=== PATIENT | male | born 1945 | race Caucasian/White ===

== ENCOUNTER 2016-12-17 09:02 | Inpatient (IN) | payer MEDICARE, OTHER ==
[2016-12-17] MEDS ORDERED: NS 0.9% 1000 ML* 1,000 ML IV ONE (09:25)
[2016-12-17] MEDS ORDERED: Diltiazem IV* 5 MG/ML 5 ML VIAL (for loading dose/IV Push) (25 MG) IV SLOW PU ONE ×2 (09:26→10:27)
[2016-12-17] MEDS ORDERED: Diltiazem DRIP* 100 MG/100 ML ADDV.BAG IVPB ONE (09:26)
[2016-12-17 10:31] LABS: Add Diff/Slide Review? Slide Review Added; Comments Flag Yes; Hematocrit 48 % (42-52); Hemoglobin 15.4 g/dl (14.0-18.0); Mean Corpuscular HGB Conc 32 g/dl (31-36); Mean Corpuscular Hemoglobin 28 pg (27-31); Mean Corpuscular Volume 89 fL (80-94); Mean Platelet Volume 9 um3 (7.4-10.4); Red Blood Count 5.43 10^6/ul (4.0-5.4); Red Cell Distribution Width 14 % (10.5-15); White Blood Count 21.6 10^3/ul (3.5-10.8)
--- NOTE | 2016-12-17 10:40 | RAD ---
HISTORY: Tachycardia COMPARISONS: February 13, 2016 VIEWS:1: Single frontal portable view of the chest at 10:30 AM FINDINGS: LINES AND TUBES: None. CARDIOMEDIASTINAL SILHOUETTE: The cardiomediastinal silhouette is normal for portable technique. PLEURA: The costophrenic angles are sharp. No pleural abnormalities are noted. LUNG PARENCHYMA: There is hyperinflation. There is patchy confluent alveolar opacification of the left mid and lower lung field and right lower lung field ABDOMEN: The upper abdomen is clear. There is no subphrenic gas. BONES AND SOFT TISSUES: No bone or soft tissue abnormalities are noted. IMPRESSION: BILATERAL MULTIFOCAL CONSOLIDATION. RECOMMEND FOLLOW-UP UNTIL RESOLUTION TO EXCLUDE UNDERLYING PULMONARY PARENCHYMAL PATHOLOGY
[2016-12-17] MEDS ORDERED: cefTRIAXone(*) 1 GM in NS 0.9% 50 ML* 50 ML IVPB ONE (10:41)
[2016-12-17] MEDS ORDERED: Levofloxacin 750 MG IVPREMIX(* 750 MG/150 ML BAG IVPB ONE (10:41)
[2016-12-17 10:42] LABS: Albumin 3.6 g/dL (3.2-5.2); BUN/Creatinine Ratio 29.6 (8-20); C Reactive Protein 279.81 mg/L (< 5.00); Calcium 9.2 mg/dL (8.6-10.3); EGFR African American 140.7 (>60); EGFR Non-African American 109.4 (>60); Globulin 3.4 g/dL (2-4); Magnesium 1.8 mg/dL (1.9-2.7)
[2016-12-17 10:51] LABS: TSH (Thyroid Stimulating Horm) 2.57 mcIU/mL (0.34-5.60)
[2016-12-17 10:59] LABS: Troponin I 0.08 ng/mL (<0.04)
[2016-12-17] MEDS ORDERED: Magnesium Oxide TAB* 400 MG PO ONE (12:09)
[2016-12-17] MEDS ORDERED: NS 0.9% 1000 ML* 1,000 ML IV SCH (12:15)
--- NOTE | 2016-12-17 12:20 | ED ---
Meghna Gale Salem, scribed for Iggy Fontaine MD on 12/17/16 at 1024 . HPI Cardiac - HPI Summary HPI Summary: Patient is a 71 y/o male who presents to the ED with SOB since yesterday. His reports he had SOB all throughout the night. Pt has COPD and is often short of breath, but sx has worsened in the last few months. He was tachycardic last night, measuring at 160 bpm which then dropped back to 90 bpm and jose back up to 160 this morning. He reports this sx is similar to past episodes of tachycardia. Pt was experiencing pain in his right side last night. He also reports A Fib, but denies CHF. He takes ASA 81 mg and is on oxygen at night. - History of Current Complaint Chief Complaint: EDDysrhythmPalp Stated Complaint: SHORT OF BREATH, RAPID HEART Time Seen by Provider: 12/17/16 09:15 Hx Obtained From: Patient Onset/Duration: Started Days Ago Initial Severity: Moderate Current Severity: Moderate Pain Intensity: 0 Pain Scale Used: 0-10 Numeric Aggravating Factor(s): Nothing Alleviating Factor(s): Nothing Associated Signs and Symptoms: Positive: Shortness of Breath, Other: - Tachycardia. - Additional Pertinent History Primary Care Physician: [id number] - Allergy/Home Medications Allergies/Adverse Reactions: Allergies Allergy/AdvReac Type Severity Reaction Status Date / Time Penicillins Allergy Severe Swelling Verified 02/12/16 07:19 Roflumilast [From Dalires] Allergy Unknown Verified 02/12/16 07:19 Reaction Details PMH/Surg Hx/FS Hx/Imm Hx Endocrine/Hematology History: Denies: Hx Diabetes, Hx Sickle Cell Disease Cardiovascular History: Reports: Other Cardiovascular Problems/Disorders - NEW ONSET AFIB, SURGERY CANCELLED IN NOV. ON CARDIZIEM Denies: Hx Angina, Hx Congestive Heart Failure, Hx Coronary Artery Disease, Hx Hypercholesterolemia, Hx Hypertension, Hx Myocardial Infarction, Hx Pacemaker /ICD, Hx Valvular Heart Disease Respiratory History: Reports: Hx Chronic Obstructive Pulmonary Disease (COPD) Denies: Hx Asthma Comment Only: Other Respiratory Problems/Disorders - COPD GI History: Reports: Other GI Disorders - CURRENT CHOLELITHIASIS History: Denies: Hx Dialysis, Hx Renal Disease, Other Problems/Disorders Musculoskeletal History: Reports: Other Musculoskeletal History - PINCH NERVE IN NECK Sensory History: Reports: Hx Cataracts - REMOVED BILATERAL EYES, Hx Contacts or Glasses - READING GLASSES Denies: Hx Glaucoma, Hx Hearing Aid Opthamlomology History: Reports: Hx Cataracts - REMOVED BILATERAL EYES, Hx Contacts or Glasses - READING GLASSES Denies: Hx Glaucoma Neurological History: Denies: Hx Headaches, Other Neuro Impairments/Disorders Psychiatric History: Denies: Hx Panic Disorder - Surgical History Surgery Procedure, Year, and Place: 2009 LEFT CATARACT [facility]. 2011 RIGHT CATARACT [facility]. 2010 TUMOR EXC FACE [facility] Hx Anesthesia Reactions: No Infectious Disease History: Denies: Traveled Outside the [place] in Last 30 Days - Family History Known Family History: Positive: Cardiac Disease - Mother. , Diabetes - Mother. - Social History Alcohol Use: None Substance Use Type: Reports: None Smoking Status (MU): Former Smoker Type: Cigarettes Amount Used/How Often: 2 PPD Length of Time of Smoking/Using Tobacco: 50+ YEARS Have You Smoked in the Last Year: No Review of Systems Positive: Palpitations, Other - Tachycardia measured at 160bpm this morning. Positive: Shortness Of Breath All Other Systems Reviewed And Are Negative: Yes Physical Exam Triage Information Reviewed: Yes Vital Signs On Initial Exam: Initial Vitals Temp Pulse Resp BP Pulse Ox 100.6 F 166 22 145/93 96 12/17/16 09:11 12/17/16 09:11 12/17/16 09:11 12/17/16 09:11 12/17/16 09:11 Vital Signs Reviewed: Yes Appearance: Positive: Well-Appearing, No Pain Distress Skin: Positive: Warm, Skin Color Reflects Adequate Perfusion, Dry Head/Face: Positive: Normal Head/Face Inspection Eyes: Positive: EOMI, MIGUEL ÁNGEL ENT: Positive: Normal ENT inspection Neck: Positive: Supple, Nontender Respiratory/Lung Sounds: Positive: Wheezes, Other - Mildly Short of Breath. Decreased air movement bilaterally Cardiovascular: Positive: Tachycardia Abdomen Description: Positive: Soft Musculoskeletal: Positive: Normal, Strength/ROM Intact. Negative: Edema Left, Edema Right Neurological: Positive: Sensory/Motor Intact, Alert, Oriented to Person Place, Time Psychiatric: Positive: Affect/Mood Appropriate Diagnostics - Vital Signs Vital Signs Temp Pulse Resp BP Pulse Ox 12/17/16 09:17 165 93 12/17/16 09:11 100.6 F 166 22 145/93 96 - Laboratory Lab Results: Lab Results 12/17/16 12/17/16 12/17/16 Range/Units 09:30 09:30 09:30 WBC 21.6 H (3.5-10.8) 10^3/ul RBC 5.43 H (4.0-5.4) 10^6/ul Hgb 15.4 (14.0-18.0) g/dl Hct 48 (42-52) % MCV 89 (80-94) fL MCH 28 (27-31) pg MCHC 32 (31-36) g/dl RDW 14 (10.5-15) % Plt Count 246 (150-450) 10^3/ul MPV 9 (7.4-10.4) um3 Neut % (Auto) 94.3 H (38-83) % Lymph % (Auto) 2.1 L (25-47) % Rose[place] % (Auto) 3.4 (1-9) % Eos % (Auto) 0 (0-6) % Baso % (Auto) 0.2 (0-2) % Absolute Neuts (auto) 20.3 H (1.5-7.7) 10^3/ul Absolute Lymphs (auto) 0.4 L (1.0-4.8) 10^3/ul Absolute Monos (auto) 0.7 (0-0.8) 10^3/ul Absolute Eos (auto) 0 (0-0.6) 10^3/ul Absolute Basos (auto) 0 (0-0.2) 10^3/ul Absolute Nucleated RBC 0.01 10^3/ul Nucleated RBC % 0.1 INR (Anticoag Therapy) 1.23 H (0.89-1.11) APTT 34.6 (26.0-36.3) seconds Sodium (133-145) mmol/L Potassium (3.5-5.0) mmol/L Chloride (101-111) mmol/L Carbon Dioxide (22-32) mmol/L Anion Gap (2-11) mmol/L BUN (6-24) mg/dL Creatinine (0.67-1.17) mg/dL Est GFR ( Amer) (>60) Est GFR (Non-Af Amer) (>60) BUN/Creatinine Ratio (8-20) Glucose (70-100) mg/dL Calcium (8.6-10.3) mg/dL Magnesium (1.9-2.7) mg/dL Total Bilirubin (0.2-1.0) mg/dL AST (13-39) U/L ALT (7-52) U/L Alkaline Phosphatase (34-104) U/L Total Creatine Kinase (10-223) U/L CK-MB (CK-2) (0.6-6.3) ng/mL Troponin I (<0.04) ng/mL C-Reactive Protein (< 5.00) mg/L B-Natriuretic Peptide 275 H ( - 100) pg/mL Total Protein (6.4-8.9) g/dL Albumin (3.2-5.2) g/dL Globulin (2-4) g/dL Albumin/Globulin Ratio (1-3) Lipase (11.0-82.0) U/L TSH (0.34-5.60) mcIU/mL 12/17/16 Range/Units 09:30 WBC (3.5-10.8) 10^3/ul RBC (4.0-5.4) 10^6/ul Hgb (14.0-18.0) g/dl Hct (42-52) % MCV (80-94) fL MCH (27-31) pg MCHC (31-36) g/dl RDW (10.5-15) % Plt Count (150-450) 10^3/ul MPV (7.4-10.4) um3 Neut % (Auto) (38-83) % Lymph % (Auto) (25-47) % Rose[place] % (Auto) (1-9) % Eos % (Auto) (0-6) % Baso % (Auto) (0-2) % Absolute Neuts (auto) (1.5-7.7) 10^3/ul Absolute Lymphs (auto) (1.0-4.8) 10^3/ul Absolute Monos (auto) (0-0.8) 10^3/ul Absolute Eos (auto) (0-0.6) 10^3/ul Absolute Basos (auto) (0-0.2) 10^3/ul Absolute Nucleated RBC 10^3/ul Nucleated RBC % INR (Anticoag Therapy) (0.89-1.11) APTT (26.0-36.3) seconds Sodium 134 (133-145) mmol/L Potassium 4.0 (3.5-5.0) mmol/L Chloride 99 L (101-111) mmol/L Carbon Dioxide 30 (22-32) mmol/L Anion Gap 5 (2-11) mmol/L BUN 21 (6-24) mg/dL Creatinine 0.71 (0.67-1.17) mg/dL Est GFR ( Amer) 140.7 (>60) Est GFR (Non-Af Amer) 109.4 (>60) BUN/Creatinine Ratio 29.6 H (8-20) Glucose 186 H (70-100) mg/dL Calcium 9.2 (8.6-10.3) mg/dL Magnesium 1.8 L (1.9-2.7) mg/dL Total Bilirubin 1.00 (0.2-1.0) mg/dL AST 24 (13-39) U/L ALT 48 (7-52) U/L Alkaline Phosphatase 91 (34-104) U/L Total Creatine Kinase 23 (10-223) U/L CK-MB (CK-2) 15.3 H (0.6-6.3) ng/mL Troponin I 0.08 H* (<0.04) ng/mL C-Reactive Protein 279.81 H (< 5.00) mg/L B-Natriuretic Peptide ( - 100) pg/mL Total Protein 7.0 (6.4-8.9) g/dL Albumin 3.6 (3.2-5.2) g/dL Globulin 3.4 (2-4) g/dL Albumin/Globulin Ratio 1.1 (1-3) Lipase 18 (11.0-82.0) U/L TSH 2.57 (0.34-5.60) mcIU/mL Result Diagrams: 12/17/16 09:30 12/17/16 09:30 Lab Statement: Any lab studies that have been ordered have been reviewed, and results considered in the medical decision making process. - Radiology CXR Radiology Interpretation Completed By: Radiologist - IMPRESSION: BILATERAL MULTIFOCAL CONSOLIDATION. RECOMMEND FOLLOW-UP UNTIL RESOLUTION TO EXCLUDE UNDERLYING PULMONARY PARENCHYMAL PATHOLOGY Re-Evaluation - Re-Evaluation First Eval Re-Evaluation Time: 10:43 Comment: Discussed CXR and plans for admission. Pt is agreeable. Disposition - Course Assessment/Plan: ADMIT HOSPITALIST STABLE. - Diagnoses Provider Diagnoses: Rapid atrial fibrillation, Pneumonia - Physician Notifications Discussed Care Of Patient With: Dr. Butler (Hospitalist). Will admit pt. Discharge - Discharge Plan Condition: Stable Disposition: ADMITTED TO [facility] Referrals: Min Dietz MD [Primary Care Provider] - The documentation as recorded by the Meghna shay Salem accurately reflects the service I personally performed and the decisions made by me, Iggy Fontaine MD.
--- NOTE | 2016-12-17 12:38 | RAD ---
HISTORY: Pneumonia, COPD COMPARISONS: Chest x-ray dated December 17, 2016, CT dated November 19, 2013 TECHNIQUE: Multiple contiguous axial CT scans of the chest were obtained without intravenous contrast. Coronal and sagittal multiplanar reformations are also submitted for review. FINDINGS: NECK AND THYROID: The lower neck and thyroid are unremarkable. CHEST WALL: There is no lower cervical, axillary, or supraclavicular lymphadenopathy by size criteria. HEART AND PERICARDIUM: The heart is unremarkable. AORTA AND PULMONARY VASCULATURE: The aorta and pulmonary vasculature are normal. MEDIASTINUM: There is no mediastinal lymphadenopathy by size criteria. JS: Evaluation of the js is limited by the lack of intravenous contrast. There is no obvious hilar lymphadenopathy by size criteria. AIRWAY AND ESOPHAGUS: The airway is unremarkable, without endobronchial filling defect. The esophagus is grossly normal. LUNG PARENCHYMA: There is multifocal ground less opacification of the left upper lobe left lower lobe and right lower lobe. There is consolidation of the basal segments of the right lower lobe. There is associated scattered centrilobular nodularity PLEURA: There are trace bilateral pleural effusions UPPER ABDOMEN: The upper abdomen is unremarkable. BONES AND SOFT TISSUES: Mild degenerative changes are noted OTHER: None. IMPRESSION: THERE IS MULTIFOCAL AIRSPACE DISEASE AND AIRWAY CENTERED NODULARITY SUGGESTIVE OF INFECTIOUS VERSUS NONINFECTIOUS/INFLAMMATORY CHANGE.
[2016-12-17] MEDS: predniSONE TAB* 20 MG PO SCH (14:04)
[2016-12-17] MEDS: Heparin VIAL(*) 5000 UNITS/ML VIAL (FIVE THOUSAND) SUBCUT SCH ×2 (14:04→21:24)
--- NOTE | 2016-12-17 16:08 | HP ---
HOSPITAL MEDICINE HISTORY AND PHYSICAL: DATE OF ADMISSION: 12/17/16 PRIMARY CARE PHYSICIAN: Min Dietz MD. MINK SLICER: Francisco J Rebolledo MD. CORNER BEAD OPERATOR: Wendi Berg MD. ATTENDING PHYSICIAN: DO Jolanta Tong(dictation provided by Doris Valentin NP) . CHIEF COMPLAINT: Cough and shortness of breath with rapid heart rate. HISTORY OF PRESENT ILLNESS: Mr. Espino is a 71-year-old male with a past medical history of paroxysmal atrial fibrillation and COPD, who presents today to the hospital with concern for worsening cough, shortness of breath, and rapid heart rate. Mr. Espino states that he notes that his heart rate is elevated when he checks his oxygen saturation via his home monitor. He states that he checks it several times per week and is noted to have a rapid heart rate several times per week. He notes his O2 saturation runs 88% to 90%. He wears 3 L nasal cannula at home and with activity. The patient went to see Dr. Rebolledo's physician rn first assistant approximately 2 weeks ago, at which time his Cardizem CD was increased from 120 mg to 180 mg. He also went to see Dr. Berg this Monday for a check after completing a course of Levaquin out of concern for pneumonia due to increased shortness of breath and cough. The patient says that he was feeling somewhat better although he never feels all that well. No additional medications were prescribed at that time. The patient states that last night he felt short of breath and therefore checked his pulse oximeter, which showed rapid heart rate. This morning he woke up covered in sweat and again checked the monitor, which showed persistently high heart rate and therefore he came into the emergency room for evaluation. He does not know if he had a fever. He did not check his temperature but again he was drenched in sweat. He notes no change to the character of his sputum. He says other than these complaints, he has been doing well. He has been eating and drinking okay and has normal formed bowel movements. He denies any issue with urination. In the emergency room, Mr. Espino is confirmed to be in atrial fibrillation with heart rate as high as 160. He now has been started on a Cardizem drip and his heart rate is running 120. He states that he is feeling a little bit better already. He was found to have a white blood cell count of 21.6, and he has a chest x-ray, which shows bilateral consolidations concerning for pneumonia. The patient finally is noted to have a mild elevation in his troponin to 0.08. Mr. Espino's presentation was concerned for rapid atrial fibrillation in the setting of pneumonia with mild elevation of troponin, Hospital Medicine was called regarding admission. PAST MEDICAL HISTORY: 1. Paroxysmal atrial fibrillation. 2. COPD on 3 L nasal cannula at night and with activity. 3. History of cholecystectomy in January 2016. 4. Cataract extractions. 5. 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 MEDICATIONS: 1. Diltiazem 180 mg p.o. daily. 2. Acetylcysteine 600 mg p.o. daily. 3. Albuterol via inhaler p.r.n. 4. Albuterol via nebulizer p.r.n. 5. Symbicort 160-4.5 two puffs inhaled b.i.d. 6. Tiotropium 18 mcg inhaled q.a.m. 7. Diltiazem 180 mg p.o. daily. 8. Prednisone 5 mg p.o. daily. 9. Aspirin 81 mg p.o. daily. ALLERGIES: PENICILLIN and ROFLUMILAST. FAMILY HISTORY: The patient reports that mother had severe heart disease with coronary artery bypass graft. She also had breast cancer. Father had reported history of AFib and COPD. SOCIAL HISTORY: The patient has over 50-year pack history of smoking. He quit approximately 3 years ago. He denies any alcohol or drug use, lives with his who is his healthcare proxy. REVIEW OF SYSTEMS: A 14-point review of systems was completed with Mr. Espino and all those not mentioned above were negative. PHYSICAL EXAMINATION GENERAL: Mr. Espino is sitting up in the bed. He is in no acute distress. He is calm and cooperative with my examination. VITAL SIGNS: Temperature 100.6. Heart rate 157, it is currently 120 at time of my examination. Respiratory rate 20, O2 saturation 95% on 4 L nasal cannula , blood pressure 145/93. LUNGS: Diminished bilaterally with no rhonchi or wheezing noted. HEART: S1, S2. No murmur, rub, gallop, and irregular. ABDOMEN: Soft, nontender. Bowel sounds are positive x4. EXTREMITIES: No cyanosis or edema. SKIN: Intact. NEUROLOGIC: He is alert and oriented x3. He moves all extremities equally. There is no facial asymmetry or focal weakness. Extraocular movements are intact. DIAGNOSTIC STUDIES AND LAB DATA: Sodium 134, potassium 4.0, chloride 99, serum bicarbonate 30, BUN 21, creatinine 0.71, glucose 186, magnesium 1.8. Troponin 0.08. CRP 279.81. WBC 21.6, hemoglobin 15.4, hematocrit 48, platelet count 246. INR 1.23. Chest x-ray shows bilateral multifocal consolidation. EKG shows what looks like supraventricular tachycardia up to 160. IMPRESSION: Mr. Espino is a 71-year-old male with a past medical history of known paroxysmal atrial fibrillation, chronic obstructive pulmonary disease on home O2, who presents today to the emergency room with rapid heart rate, shortness of breath, and cough, found to have rapid atrial fibrillation with suspected pneumonia. Our plans are for inpatient admission to the Intensive Care Unit. I expect the length of stay to be greater than 2 days for the followin. Rapid atrial fibrillation: The patient recently had his diltiazem increased from 120 to 180 mg by his sand plant attendant. He has had some improvement in his rate control with the Cardizem drip thus far. Plan to continue to titrate the Cardizem drip up and then switch over to oral Cardizem. The patient has CHADS-VASc 2 score of 1 and therefore will continue on aspirin only. If the patient has any further difficulties with control of his rapid atrial fibrillation, we will consider consultation with Cardiology. 2. Pneumonia: I am very concerned with the patient's extensive pack year history of smoking that perhaps he has underlying parenchymal pathology beyond a pneumonia. I also note that the patient was treated with antibiotics by Dr. Berg very recently and despite this he presents today with significant leukocytosis and parenchymal consolidations on x-ray, therefore I think a CT chest is warranted for further evaluation of the lung parenchyma. The patient will have ceftriaxone and azithromycin for antibiotic coverage. He will have oxygen available. He will have DuoNeb nebulizers. I will confirm the blood cultures have been sent and add on lactic acid. 3. Elevated troponin. I suspect this slight elevation in his troponin is due to his rapid atrial fibrillation, but we will check those q.3 hours x2. The patient will be on telemetry monitoring while in the Intensive Care Unit. 4. Hypomagnesemia. Plan to replete with magnesium orally and recheck in the morning. 5. Hyperglycemia. The patient's blood glucose was 186 on arrival. This could be secondary to infection, but we will check hemoglobin A1c to rule out diabetes. 6. DVT prophylaxis with heparin subcu and SCDs. 7. Disposition: To Intensive Care Unit. 8. Code status: DNR. His MOST form has been completed with the family at bedside . TIME SPENT: Approximately 75 minutes was spent on admission of this patient, more than half time spent with patient at the bedside reviewing the events leading up to this hospitalization, performing the physical examination, and reviewing my plan of care. DORIS VALENTIN NP CC: Dr. Dietz; Dr. Rebolledo; Dr. Berg* [id number]/CPS #: [id number]
[2016-12-17] MEDS ORDERED: Diltiazem TAB* 60 MG PO SCH (20:00)
[2016-12-17] MEDS ORDERED: Albuterol HFA INHALER* 8 gm MDI INH PRN (20:01)
[2016-12-17] MEDS: Diltiazem TAB* 60 MG PO SCH (21:24)
[2016-12-17] MEDS: Mometasone/Formoter 200/5 MDI INH SCH (22:04)
[2016-12-18] MEDS: Diltiazem TAB* 60 MG PO SCH ×5 (02:58→21:41)
[2016-12-18 05:41] LABS: Hematocrit 40 % (42-52); Hemoglobin 12.9 g/dl (14.0-18.0); Mean Corpuscular HGB Conc 32 g/dl (31-36); Mean Corpuscular Hemoglobin 29 pg (27-31); Mean Corpuscular Volume 90 fL (80-94); Mean Platelet Volume 8 um3 (7.4-10.4); Red Blood Count 4.45 10^6/ul (4.0-5.4); Red Cell Distribution Width 14 % (10.5-15); White Blood Count 15.3 10^3/ul (3.5-10.8)
[2016-12-18 05:53] LABS: Calcium 8.7 mg/dL (8.6-10.3); EGFR African American 167.6 (>60); EGFR Non-African American 130.3 (>60); Magnesium 1.9 mg/dL (1.9-2.7); Potassium 4.4 mmol/L (3.5-5.0)
[2016-12-18] MEDS: Heparin VIAL(*) 5000 UNITS/ML VIAL (FIVE THOUSAND) SUBCUT SCH ×3 (06:04→21:41)
[2016-12-18] MEDS: Albuterol HFA INHALER* 8 gm MDI INH SCH (08:39)
[2016-12-18] MEDS: Mometasone/Formoter 200/5 MDI INH SCH ×2 (08:42→21:52)
[2016-12-18] MEDS ORDERED: Spiriva Inhaler DEVICE* 1 EACH DEVICE INH ONE (09:00)
[2016-12-18] MEDS ORDERED: SODIUM BICARBONATE IV ONE ×2 (09:25)
[2016-12-18] MEDS ORDERED: LACTATED RINGERS IV ONE ×2 (09:25)
[2016-12-18] MEDS: Tiotropium CAP.INH* CAP.INH/18 MCG (USE ORDER SET !) INH SCH (10:04)
[2016-12-18] MEDS: cefTRIAXone VIAL(*) 1,000 MG in NS 0.9% 50 ML* 50 ML IVPB SCH (11:37)
[2016-12-18] MEDS: predniSONE TAB* 20 MG PO SCH (11:40)
[2016-12-18] MEDS: Aspirin EC Low Dose* 81 MG TAB.EC PO SCH (11:40)
[2016-12-18] MEDS ORDERED: Sodium Bicarbonate 8.4% IV* 100 MEQ in D5W 1000 ML BAG* 1,000 ML IVPB ONE (12:00)
[2016-12-18] MEDS ORDERED: SODIUM BICARBONATE IVPB ONE (12:00)
[2016-12-18] MEDS ORDERED: LACTATED RINGERS IVPB ONE (12:00)
--- NOTE | 2016-12-18 13:11 | PN ---
Subjective Date of Service: 12/18/16 Interval History: Pt feels occasionally short of breath - but never is outright distress intermittent tachycardia, during which times patient feels poorly. diltiazem continuing IVF ordered for periods of hypOtension. no anticoagulation as per RAMONA's score...on ASA. . Family History: Unchanged from Admission Social History: Unchanged from Admission Past Medical History: Unchanged from Admission Objective Active Medications: . Albuterol (Ventolin Hfa Inhaler*) 1 puff INH Q4H PRN PRN Reason: SOB/WHEEZING Albuterol (Ventolin Hfa Inhaler*) 2 puff INH QAM [facility] Last Admin: 12/18/16 08:39 Dose: 2 puff Albuterol/Ipratropium (Duoneb Neb.Veronika*) 1 neb INH Q4H PRN PRN Reason: SOB/WHEEZING Aspirin (Aspirin Ec Low Dose*) 81 mg PO DAILY [facility] Last Admin: 12/18/16 11:40 Dose: 81 mg Diltiazem HCl (Cardizem Tab*) 60 mg PO Q6H [facility] Last Admin: 12/18/16 12:40 Dose: 60 mg Heparin Sodium (Porcine) (Heparin Vial(*)) 5,000 units SUBCUT Q8HR [facility] Last Admin: 12/18/16 06:04 Dose: 5,000 units Ceftriaxone Sodium 1,000 mg/ (Sodium Chloride) 50 mls @ 200 mls/hr IVPB Q24H [facility] Last Admin: 12/18/16 11:37 Dose: 200 mls/hr Azithromycin 500 mg/ Sodium (Chloride) 250 mls @ 250 mls/hr IVPB Q24H [facility] Sodium Bicarbonate 100 meq/ (Dextrose) 1,100 mls @ 100 mls/hr IVPB ONCE ONE PRN Reason: As Directed Stop: 12/18/16 22:59 Last Admin: 12/18/16 12:40 Dose: 100 mls/hr Mometasone Furoate/Formoterol Fumar (Dulera 200/5 Mdi*) 2 puff INH BID [facility] PRN Reason: Protocol Last Admin: 12/18/16 08:42 Dose: 2 puff Prednisone (Deltasone Tab*) 60 mg PO DAILY [facility] Last Admin: 12/18/16 11:40 Dose: 60 mg Tiotropium [place] (Spiriva Cap.Inh*) 1 cap INH QAM [facility] Last Admin: 12/18/16 10:04 Dose: 1 puff . Vital Signs 12/17/16 12/17/16 12/17/16 13:20 13:27 14:00 Temperature 98.5 F 100.8 F Pulse Rate 98 105 Respiratory 20 16 Rate Blood Pressure 140/88 (mmHg) O2 Sat by Pulse 94 Oximetry 12/17/16 12/17/16 12/17/16 14:13 14:15 14:30 Temperature Pulse Rate 90 86 91 Respiratory 20 20 19 Rate Blood Pressure 106/67 97/58 103/73 (mmHg) O2 Sat by Pulse 93 94 94 Oximetry Oxygen Devices in Use Now: Nasal Cannula Appearance: elderly and frail Ears/Nose/Mouth/Throat: NL Teeth, Lips, Gums Neck: NL Appearance and Movements; NL JVP Respiratory: Symmetrical Chest Expansion and Respiratory Effort Cardiovascular: NL Sounds; No Murmurs; No JVD, - - irr irr and tachycardic at times (AF) ; other times RRR. Abdominal: NL Sounds; No Tenderness; No Distention Lymphatic: No Cervical Adenopathy Extremities: No Edema Skin: No Rash or Ulcers Neurological: Alert and Oriented x 3 Lines/Tubes/Other Access: Clean, Dry and Intact Peripheral IV Nutrition: Taking PO's Result Diagrams: 12/18/16 05:20 12/18/16 05:20 Additional Lab and Data: .. Microbiology and Other Data: Microbiology 12/17/16 12:48 Aerobic Blood Culture - Preliminary Blood Venous No Growth Day 1 Anaerobic Blood Culture - Preliminary No Growth Day 1 12/17/16 18:30 Nasal Screen MRSA (PCR)(JAY) - Final Nasal Mrsa Negative 12/17/16 12:50 Influenza Types A,B Antigen (JAY) - Final Nasopharyngeal Specimen received for Influenza A/B Molecular testing Assess/Plan/Problems-Billing . Assessment: 71 yo man with paroxysmal, rapid AF in hte setting of PNA / CT Chest showing diffuse airspace disease/consolidations. Currently in NSR - but occasionally goes into AF/150 range. Plan to increase BB/CCB to control AF; watch lower HR in NSR at other times ( watch for tachy-kris) Current Medications: - Albuterol 1 puff INH Q4H PRN SOB/WHEEZING - Albuterol (Ventolin Hfa Inhaler) 2 puff INH QAM - Albuterol/Ipratropium (Duoneb Neb.Veronika*) 1 neb INH Q4H PRN SOB/WHEEZING - Aspirin 81 mg PO DAILY - Diltiazem HCl (Cardizem Tab) 60 mg PO Q6H - Heparin 5,000 units SUBCUT Q8HR - Sodium Bicarbonate 100 meq once - Ceftriaxone Sodium 1,000 mg Q24H - Azithromycin 500 mg IVPB Q24H - Mometasone Furoate/Formoterol Fumar (Dulera 200/5 Mdi) 2 puff INH BID - Prednisone 60 mg PO DAILY - Tiotropium [place] (Spiriva) 1 cap INH QAM . - Patient Problems (1) Afib Current Visit: No Status: Acute Priority: High Code(s): I48.91 - UNSPECIFIED ATRIAL FIBRILLATION Comment: - intermittent Rashad - will ensure adequate hydration and acid/base status - increase ccb dosing - diltiazem to 240 mg daily in 4 doses - add BB - metoprolol 25 mg PO BID --> B1-selective BB will not affect COPD (2) Pneumonia Current Visit: Yes Status: Acute Code(s): J18.9 - PNEUMONIA, UNSPECIFIED ORGANISM SNOMED Code(s): 393255913 Comment: - CTX/LUCILLE - control COPD as below - Nebs - Supplemental Oxygen (3) COPD (chronic obstructive pulmonary disease) Current Visit: No Status: Acute Priority: Medium Code(s): J44.9 - CHRONIC OBSTRUCTIVE PULMONARY DISEASE, UNSPECIFIED SNOMED Code(s): 99864566 Comment: - The patient is diminished throughout. - Albuterol 1 puff INH Q4H PRN SOB/WHEEZING - Albuterol (Ventolin Hfa Inhaler) 2 puff INH QAM - Albuterol/Ipratropium (Duoneb Neb.Veronika*) 1 neb INH Q4H PRN SOB/WHEEZING - Ceftriaxone Sodium 1,000 mg Q24H - Azithromycin 500 mg IVPB Q24H - Mometasone Furoate/Formoterol Fumar (Dulera 200/5 Mdi) 2 puff INH BID - Prednisone 60 mg PO DAILY - Tiotropium [place] (Spiriva) 1 cap INH QAM (4) DVT prophylaxis Current Visit: No Status: Acute Priority: Medium Code(s): RNA1489 - Comment: [facility] (5) Full code status Current Visit: No Status: Acute Code(s): Z78.9 - OTHER SPECIFIED HEALTH STATUS
[2016-12-18] MEDS ORDERED: Metoprolol Tartrate TAB* 25 MG PO ONE (13:18)
[2016-12-18] MEDS: Azithromycin IV(*) 500 MG in NS 0.9% 250 ML* 250 ML IVPB SCH (13:59)
[2016-12-19] MEDS: Diltiazem TAB* 60 MG PO SCH ×4 (02:24→21:33)
[2016-12-19] MEDS: Heparin VIAL(*) 5000 UNITS/ML VIAL (FIVE THOUSAND) SUBCUT SCH ×3 (05:17→21:33)
[2016-12-19] MEDS: Albuterol/Ipratropium NEB.SOL* Albuterol 2.5 MG/Ipratropium 0.5 MG 3 ML INH PRN ×2 (05:40→14:51)
[2016-12-19] MEDS: Albuterol HFA INHALER* 8 gm MDI INH SCH (09:58)
[2016-12-19] MEDS: Tiotropium CAP.INH* CAP.INH/18 MCG (USE ORDER SET !) INH SCH (09:59)
[2016-12-19] MEDS: Mometasone/Formoter 200/5 MDI INH SCH ×2 (09:59→23:44)
[2016-12-19] MEDS: Aspirin EC Low Dose* 81 MG TAB.EC PO SCH (10:06)
[2016-12-19] MEDS: predniSONE TAB* 20 MG PO SCH (10:06)
[2016-12-19] MEDS: Metoprolol Tartrate TAB* 25 MG PO SCH ×2 (10:06→21:33)
[2016-12-19] MEDS: cefTRIAXone VIAL(*) 1,000 MG in NS 0.9% 50 ML* 50 ML IVPB SCH (11:17)
--- NOTE | 2016-12-19 11:30 | PN ---
Subjective Date of Service: 12/19/16 Interval History: Feeling better today. +cough productive of phlegm. Has not been OOB walking. No N/V, ate breakfast. No SOB, +wheezing sensation Family History: Unchanged from Admission Social History: Unchanged from Admission Past Medical History: Unchanged from Admission Objective Active Medications: Albuterol (Ventolin Hfa Inhaler*) 1 puff INH Q4H PRN PRN Reason: SOB/WHEEZING Albuterol (Ventolin Hfa Inhaler*) 2 puff INH QAM [facility] Last Admin: 12/19/16 09:58 Dose: 2 puff Albuterol/Ipratropium (Duoneb Neb.Veronika*) 1 neb INH Q4H PRN PRN Reason: SOB/WHEEZING Last Admin: 12/19/16 05:40 Dose: 1 neb Aspirin (Aspirin Ec Low Dose*) 81 mg PO DAILY [facility] Last Admin: 12/19/16 10:06 Dose: 81 mg Diltiazem HCl (Cardizem Tab*) 60 mg PO Q6H [facility] Last Admin: 12/19/16 10:06 Dose: 60 mg Heparin Sodium (Porcine) (Heparin Vial(*)) 5,000 units SUBCUT Q8HR [facility] Last Admin: 12/19/16 05:17 Dose: 5,000 units Ceftriaxone Sodium 1,000 mg/ (Sodium Chloride) 50 mls @ 200 mls/hr IVPB Q24H [facility] Last Admin: 12/19/16 11:17 Dose: 200 mls/hr Azithromycin 500 mg/ Sodium (Chloride) 250 mls @ 250 mls/hr IVPB Q24H [facility] Last Admin: 12/18/16 13:59 Dose: 250 mls/hr Metoprolol Tartrate (Lopressor Tab*) 25 mg PO BID [facility] Last Admin: 12/19/16 10:06 Dose: 25 mg Mometasone Furoate/Formoterol Fumar (Dulera 200/5 Mdi*) 2 puff INH BID [facility] PRN Reason: Protocol Last Admin: 12/19/16 09:59 Dose: 2 puff Prednisone (Deltasone Tab*) 60 mg PO DAILY [facility] Last Admin: 12/19/16 10:06 Dose: 60 mg Tiotropium [place] (Spiriva Cap.Inh*) 1 cap INH QAM [facility] Last Admin: 12/19/16 09:59 Dose: 1 puff Vital Signs 12/18/16 12/18/16 12/18/16 13:53 16:20 19:30 Temperature 97.9 F 98.2 F Pulse Rate 69 64 68 Respiratory 22 18 Rate Blood Pressure 103/67 97/67 107/65 (mmHg) O2 Sat by Pulse 94 95 Oximetry 12/18/16 12/18/16 12/19/16 20:00 23:41 02:27 Temperature 98.2 F Pulse Rate 73 Respiratory 16 16 Rate Blood Pressure 102/61 106/53 (mmHg) O2 Sat by Pulse 96 Oximetry 12/19/16 12/19/16 12/19/16 04:25 05:40 07:52 Temperature 98.3 F 97.9 F Pulse Rate 67 70 74 Respiratory 16 15 16 Rate Blood Pressure 98/61 106/60 (mmHg) O2 Sat by Pulse 96 95 97 Oximetry 12/19/16 10:06 Temperature Pulse Rate 92 Respiratory 18 Rate Blood Pressure (mmHg) O2 Sat by Pulse 92 Oximetry Oxygen Devices in Use Now: Nasal Cannula - 3L at rest Appearance: NAD Eyes: No Scleral Icterus, PERRLA Ears/Nose/Mouth/Throat: Clear Oropharnyx, Mucous Membranes Moist Neck: NL Appearance and Movements; NL JVP, Trachea Midline Respiratory: Symmetrical Chest Expansion and Respiratory Effort, - - diffuse expiratory wheeze Cardiovascular: - - IRIR Abdominal: NL Sounds; No Tenderness; No Distention, No Hepatosplenomegaly Lymphatic: No Cervical Adenopathy Extremities: No Edema Neurological: Alert and Oriented x 3 Result Diagrams: 12/18/16 05:20 12/18/16 05:20 Additional Lab and Data: .. Microbiology and Other Data: Microbiology 12/17/16 12:48 Aerobic Blood Culture - Preliminary Blood Venous No Growth Day 1 Anaerobic Blood Culture - Preliminary No Growth Day 1 12/17/16 18:30 Nasal Screen MRSA (PCR)(JAY) - Final Nasal Mrsa Negative 12/17/16 12:50 Influenza Types A,B Antigen (JAY) - Final Nasopharyngeal Specimen received for Influenza A/B Molecular testing Assess/Plan/Problems-Billing . Assessment: 71 yo man p/w afib with RVR in setting of multifocal PNA - Patient Problems (1) Pneumonia Comment: c/w CTX/Azithromycin Nebs Supplemental Oxygen - at home uses 3L at night and when ambulating (2) Afib Comment: cardizem increased to 240 mg daily in 4 doses added metoprolol 25 mg PO BID (3) COPD (chronic obstructive pulmonary disease) Comment: Albuterol 1 puff INH Q4H PRN SOB/WHEEZING Albuterol (Ventolin Hfa Inhaler) 2 puff INH QAM Albuterol/Ipratropium (Duoneb Neb.Veronika*) 1 neb INH Q4H PRN SOB/WHEEZING Dulera 200/5 Mdi 2 puff INH BID - Prednisone 60 mg PO DAILY Tiotropium [place] (Spiriva) 1 cap INH QAM (4) DVT prophylaxis Comment: [facility]
[2016-12-19] MEDS: Azithromycin IV(*) 500 MG in NS 0.9% 250 ML* 250 ML IVPB SCH (12:59)
[2016-12-19 13:09] LABS: Urine Bilirubin Negative (Negative); Urine Glucose 1+(50 mg/dL) (Negative); Urine Nitrite Negative (Negative)
[2016-12-20] MEDS: Diltiazem TAB* 60 MG PO SCH ×2 (02:17→08:33)
[2016-12-20 04:57] LABS: Hematocrit 38 % (42-52); Hemoglobin 12.4 g/dl (14.0-18.0); Mean Corpuscular HGB Conc 33 g/dl (31-36); Mean Corpuscular Hemoglobin 29 pg (27-31); Mean Corpuscular Volume 89 fL (80-94); Mean Platelet Volume 8 um3 (7.4-10.4); Red Blood Count 4.29 10^6/ul (4.0-5.4); Red Cell Distribution Width 14 % (10.5-15); White Blood Count 9.2 10^3/ul (3.5-10.8)
[2016-12-20 05:17] LABS: BUN/Creatinine Ratio 45.1 (8-20); Calcium 8.5 mg/dL (8.6-10.3); EGFR Non-African American 160.2 (>60); Potassium 4.3 mmol/L (3.5-5.0)
[2016-12-20] MEDS: Heparin VIAL(*) 5000 UNITS/ML VIAL (FIVE THOUSAND) SUBCUT SCH (05:41)
[2016-12-20] MEDS: Albuterol/Ipratropium NEB.SOL* Albuterol 2.5 MG/Ipratropium 0.5 MG 3 ML INH PRN (05:41)
[2016-12-20 07:13] VITALS: BP 105/61
[2016-12-20] MEDS: Metoprolol Tartrate TAB* 25 MG PO SCH (08:33)
[2016-12-20] MEDS: predniSONE TAB* 20 MG PO SCH (08:33)
[2016-12-20] MEDS: Aspirin EC Low Dose* 81 MG TAB.EC PO SCH (08:33)
[2016-12-20] MEDS: Mometasone/Formoter 200/5 MDI INH SCH (09:27)
[2016-12-20] MEDS: Tiotropium CAP.INH* CAP.INH/18 MCG (USE ORDER SET !) INH SCH (09:28)
[2016-12-20] MEDS: Albuterol HFA INHALER* 8 gm MDI INH SCH (09:28)
--- NOTE | 2016-12-21 01:04 | DS ---
DISCHARGE SUMMARY: DATE OF ADMISSION: 12/17/16 DATE OF DISCHARGE: 12/20/16 PRIMARY CARE PROVIDER: Dr. Dietz. PRIMARY DIAGNOSIS: Multilobar pneumonia. SECONDARY DIAGNOSES: Include: 1. Atrial fibrillation with rapid ventricular response. 2. Chronic respiratory failure with chronic obstructive pulmonary disease, on 3 L, to use oxygen 3 L at all times. 3. Chronic obstructive pulmonary disease. 4. Prediabetes. MEDICATIONS AT DISCHARGE: Include: 1. Prednisone taper 40 mg for 3 days, then 30 mg for 3 days, then 20 mg for 3 days, then 10 mg for 3 days, then restart 5 mg daily. 2. Albuterol RespiClick 90 mcg every 4 hours as needed and albuterol HFA ___2_ _ puffs in the morning. 3. Acetylcysteine 600 mg daily. 4. Symbicort 160/4.5 mcg two puffs twice daily. 5. Aspirin 81 mg daily. 6. Spiriva 1 cap inhaled daily. 7. Metoprolol tartrate 25 mg twice daily. 8. Diltiazem CD 240 mg increased from previous dose. 9. Levaquin 750 mg for 5 additional days. PERTINENT IMAGING DURING HOSPITAL STAY: CT chest, impression: There is multifocal airspace disease and airway-centered nodularity suggestive of infectious versus noninfectious inflammatory changes. PERTINENT LABORATORY DATA: White blood cell count is 21.6 on presentation, decreased to 9.2. Troponin I on presentation 0.08, decreased to 0.02. Hemoglobin A1c 6.0. HISTORY OF PRESENT ILLNESS AND HOSPITAL COURSE: This is a 71-year-old man with past medical history as outlined in the history of present illness on the day of admission including past medical history of paroxysmal atrial fibrillation as well as COPD, dependent on oxygen with activity or at sleep 3 L, presented to the hospital with worsening cough, shortness of breath, and rapid heart rate , was found to be hypoxemic as well in atrial fibrillation with rapid ventricular response to as high as 160 beats per minute. His laboratory data indicated infection with leukocytosis greater than 20,000. His peak fever was 100.9 on the day of admission. CAT scan indicated multifocal pneumonia. He was treated with ceftriaxone and azithromycin during the course of hospital stay , discharged on Levaquin to complete 10 days of antibiotics. During the course of hospital stay, his lungs had end-expiratory wheezes, which had improved to trace wheezes on the day of discharge. He had a dry cough that was no longer productive on the day of discharge. He generally felt back to his baseline, had no complaints on the day of discharge. With increased dose of diltiazem and the addition of metoprolol tartrate to his medications, his heart rate remained well controlled during the hospital stay. There were no complications during the patient's hospital stay. FOLLOWUP INSTRUCTIONS: At followup, please: 1. Evaluate for continued heart rate and blood pressure control on new medications. 2. Evaluate for need for prolonged steroid taper. 3. Evaluate for resolution of pneumonia based on symptomatology and need for prolonged antibiotic course if needed. 4. No other specific labs or vitals that need followup. Reasons to return to the hospital including, but not limited to, recurrent or worsening symptoms, shortness of breath, chest pain, lightheadedness, nausea, vomiting, loss of consciousness, near loss of consciousness, bleeding from any source, fevers, chills, night sweats, inability to obtain or tolerate medications were discussed with the patient and his . They both acknowledged understanding. TIME SPENT: Greater than 45 minutes was spent on discharge of this patient with greater than half was spent [id number] with the patient. CC: Dr. Dietz * [id number]/[facility] #: [id number] RENAE
== END 2016-12-20 11:40 | disposition home or self-care (01) | DRG 308 ==
LOC: ED 09:02 → ICU 11:01 → MEDTELE 12-18 01:36
PROVIDERS: ADMIT Hospitalist; ATTEND Internal Medicine
DX: I48.0 Paroxysmal atrial fibrillation (principal); J18.9 Pneumonia, unspecified organism; J96.10 Chronic respiratory failure, unspecified whether with hypoxia or hypercapnia; J44.9 Chronic obstructive pulmonary disease, unspecified; Z99.81 Dependence on supplemental oxygen; R73.9 Hyperglycemia, unspecified; R74.8 Abnormal levels of other serum enzymes; E83.42 Hypomagnesemia; R73.03 Prediabetes; Z79.82 Long term (current) use of aspirin; Z79.52 Long term (current) use of systemic steroids; Z79.899 Other long term (current) drug therapy; Z88.0 Allergy status to penicillin; Z88.8 Allergy status to other drugs, medicaments and biological substances; Z82.49 Family history of ischemic heart disease and other diseases of the circulatory system; Z80.3 Family history of malignant neoplasm of breast; Z83.6 Family history of other diseases of the respiratory system; Z87.891 Personal history of nicotine dependence
CPT/HCPCS: 36415; 71010; 71250; 80048; 80053; 81003; 82550; 82553; 83036; 83605; 83690; 83735; 83880; 84443; 84484; 85025; 85610; 85730; 86140; 87040; 87502; 87641; 93005; 94640; 94760; A9270-GY; J0456; J0696; J1644; J7060; J7512

== ENCOUNTER 2017-10-16 12:56 | Emergency (ER) | payer MEDICARE, OTHER ==
[2017-10-16] MEDS ORDERED: methylPREDNISolone 125 MG* 2 ML VIAL IV ONE (14:01)
[2017-10-16] MEDS ORDERED: Albuterol/Ipratropium NEB.SOL* Albuterol 2.5 MG/Ipratropium 0.5 MG 3 ML INH ONE ×2 (14:01→16:12)
--- NOTE | 2017-10-16 14:22 | RAD ---
INDICATION: Short of breath COMPARISON: September 12, 2017 TECHNIQUE: An AP portable view obtained at 1408 hours is submitted. FINDINGS: Bones/Soft Tissues: There are no acute bony findings. Cardiomediastinal: The heart is normal in size. The central pulmonary vessels are prominent suggestive of pulmonary trauma hypertension. There is increased prominence of interstitium suggesting pulmonary interstitial edema. Lungs: There is no focal consolidation. There is patchy alveolar change likely alveolar edema. There is hyperinflation Pleura: There are no pleural effusions. Other: None IMPRESSION: HYPERINFLATION WITH SUSPECTED PULMONARY ARTERIAL HYPERTENSION. PULMONARY VASCULAR CONGESTION
[2017-10-16 14:36] LABS: Hematocrit 42 % (42-52); Hemoglobin 14.1 g/dl (14.0-18.0); Mean Corpuscular HGB Conc 33 g/dl (31-36); Mean Corpuscular Hemoglobin 31 pg (27-31); Mean Corpuscular Volume 91 fL (80-94); Mean Platelet Volume 9 um3 (7.4-10.4); Red Blood Count 4.61 10^6/ul (4.0-5.4); Red Cell Distribution Width 13 % (10.5-15)
[2017-10-16 14:51] LABS: Albumin 3.8 g/dL (3.2-5.2); BUN/Creatinine Ratio 28.6 (8-20); C Reactive Protein 221.42 mg/L (< 5.00); Calcium 9.2 mg/dL (8.6-10.3); EGFR Non-African American 125.2 (>60); Globulin 3.2 g/dL (2-4); Total Bilirubin 0.5 mg/dL (0.2-1.0)
[2017-10-16 14:52] LABS: Troponin I 0.01 ng/mL (<0.04)
[2017-10-16 17:16] VITALS: BP 125/69
--- NOTE | 2017-10-16 17:58 | ED ---
Jordan Gale Angela, scribed for Braxton Herrmann MD on 10/16/17 at 1402 . Shortness of Breath - HPI Summary HPI Summary: This pt is a 72 y/o male presenting to [facility] c/o persistent cough and SOB, worsening since 3 days ago. Pt reports he has an intermittent productive cough with yellow sputum. Pt states that today he has had a non-productive cough, unable to bring anything up. He notes he had pneumonia in November and then bronchitis recently. He finished his antibiotic approximately over 1 week ago. Pt has used his nebulizer this morning. PMHx includes COPD. He takes prednisone 5 mg chcf. Pt has an upcoming appointment with Dr. Berg tomorrow. - History of Current Complaint Chief Complaint: EDShortnessOfBreath Time Seen by Provider: 10/16/17 13:43 Hx Obtained From: Patient Onset/Duration: Lasting Days, Still Present, Worse Since - 3 days ago Timing: Constant Dyspnea At: Rest Associated Signs & Symptoms: Cough (Productive), Cough (Nonproductive) - Allergy/Home Medications Allergies/Adverse Reactions: Allergies Allergy/AdvReac Type Severity Reaction Status Date / Time Penicillins Allergy Severe Swelling Verified 02/12/16 07:19 Roflumilast [From Daliresp] Allergy Unknown Verified 02/12/16 07:19 Reaction Details PMH/Surg Hx/FS Hx/Imm Hx Endocrine/Hematology History: Denies: Hx Diabetes, Hx Sickle Cell Disease Cardiovascular History: Reports: Other Cardiovascular Problems/Disorders - NEW ONSET AFIB, SURGERY CANCELLED IN NOV. ON CARDIZIEM Denies: Hx Angina, Hx Congestive Heart Failure, Hx Coronary Artery Disease, Hx Hypercholesterolemia, Hx Hypertension, Hx Myocardial Infarction, Hx Pacemaker /ICD, Hx Valvular Heart Disease Respiratory History: Reports: Hx Chronic Obstructive Pulmonary Disease (COPD) Denies: Hx Asthma Comment Only: Other Respiratory Problems/Disorders - COPD GI History: Reports: Other GI Disorders - CURRENT CHOLELITHIASIS History: Denies: Hx Dialysis, Hx Renal Disease, Other Problems/Disorders Musculoskeletal History: Reports: Other Musculoskeletal History - PINCH NERVE IN NECK Sensory History: Reports: Hx Cataracts - REMOVED BILATERAL EYES, Hx Contacts or Glasses - READING GLASSES Denies: Hx Glaucoma, Hx Hearing Aid Opthamlomology History: Reports: Hx Cataracts - REMOVED BILATERAL EYES, Hx Contacts or Glasses - READING GLASSES Denies: Hx Glaucoma Neurological History: Denies: Hx Headaches, Other Neuro Impairments/Disorders Psychiatric History: Denies: Hx Panic Disorder - Surgical History Surgery Procedure, Year, and Place: 2009 LEFT CATARACT [facility]. 2011 RIGHT CATARACT [facility]. 2010 TUMOR EXC FACE [facility]. mike Hx Anesthesia Reactions: No Infectious Disease History: No Infectious Disease History: Denies: Traveled Outside the [place] in Last 30 Days - Family History Known Family History: Positive: Cardiac Disease - Mother. , Diabetes - Mother. - Social History Alcohol Use: None Substance Use Type: Reports: None Smoking Status (MU): Former Smoker Type: Cigarettes Amount Used/How Often: 2 PPD Length of Time of Smoking/Using Tobacco: 50+ YEARS Have You Smoked in the Last Year: No Review of Systems Negative: Fever, Chills Negative: Chest Pain Positive: Shortness Of Breath, Cough Genitourinary: Negative Musculoskeletal: Negative Skin: Negative Neurological: Negative All Other Systems Reviewed And Are Negative: Yes Physical Exam - Summary Physical Exam Summary: Appearance: The patient is well-nourished in no acute distress and in no acute pain. Skin: The skin is warm and dry and skin color reflects adequate perfusion. HEENT: The head is normocephalic and atraumatic. The pupils are equal and reactive. The conjunctivae are clear and without drainage. Nares are patent and without drainage. Mouth reveals moist mucous membranes and the throat is without erythema and exudate. The external ears are intact. The ear canals are patent and without drainage. The tympanic membranes are intact. Neck: the neck is supple with full range of motion and non-tender. There are no carotid bruits. There is no neck vein distension. Respiratory: Chest is non-tender. Decreased breath sounds with occasional wheezes. Cardiovascular: Heart is regular rate and rhythm. There is no murmur or rub auscultated. There is no peripheral edema and pulses are symmetrical and equal. Abdomen: The abdomen is soft and non-tender. There are normal bowel sounds heard in all four quadrants and there is no organomegaly palpated. Musculoskeletal: There is no back tenderness noted. Extremities are non-tender with full range of motion. There is good capillary refill. There is no peripheral edema or calf tenderness elicited. Neurological: Patient is alert and oriented to person, place and time. The patient has symmetrical motor strength in all four extremities. Cranial nerves are grossly intact. Deep tendon reflexes are symmetrical and equal in all four extremities. Psychiatric: The patient has an appropriate affect and does not exhibit any anxiety or depression. Triage Information Reviewed: Yes Vital Signs On Initial Exam: Initial Vitals Temp Pulse Resp BP Pulse Ox 98.8 F 80 20 124/68 87 10/16/17 13:01 10/16/17 13:01 10/16/17 13:01 10/16/17 13:01 10/16/17 13:01 Vital Signs Reviewed: Yes - Marco A Coma Scale Coma Scale Total: 15 Diagnostics - Vital Signs Vital Signs Temp Pulse Resp BP Pulse Ox 10/16/17 13:39 15 10/16/17 13:38 75 82 10/16/17 13:36 133/68 10/16/17 13:01 98.8 F 80 20 124/68 87 - Laboratory Lab Results: Lab Results 10/16/17 10/16/17 10/16/17 Range/Units 14:23 14:23 14:23 WBC 11.0 H (3.5-10.8) 10^3/ul RBC 4.61 (4.0-5.4) 10^6/ul Hgb 14.1 (14.0-18.0) g/dl Hct 42 (42-52) % MCV 91 (80-94) fL MCH 31 (27-31) pg MCHC 33 (31-36) g/dl RDW 13 (10.5-15) % Plt Count 203 (150-450) 10^3/ul MPV 9 (7.4-10.4) um3 Neut % (Auto) 82.8 (38-83) % Lymph % (Auto) 5.5 L (25-47) % [place] % (Auto) 11.1 H (1-9) % Eos % (Auto) 0.1 (0-6) % Baso % (Auto) 0.5 (0-2) % Absolute Neuts (auto) 9.1 H (1.5-7.7) 10^3/ul Absolute Lymphs (auto) 0.6 L (1.0-4.8) 10^3/ul Absolute Monos (auto) 1.2 H (0-0.8) 10^3/ul Absolute Eos (auto) 0 (0-0.6) 10^3/ul Absolute Basos (auto) 0.1 (0-0.2) 10^3/ul Absolute Nucleated RBC 0 10^3/ul Nucleated RBC % 0 Sodium 138 (133-145) mmol/L Potassium 4.0 (3.5-5.0) mmol/L Chloride 97 L (101-111) mmol/L Carbon Dioxide 36 H (22-32) mmol/L Anion Gap 5 (2-11) mmol/L BUN 18 (6-24) mg/dL Creatinine 0.63 L (0.67-1.17) mg/dL Est GFR ( Amer) 161.0 (>60) Est GFR (Non-Af Amer) 125.2 (>60) BUN/Creatinine Ratio 28.6 H (8-20) Glucose 137 H (70-100) mg/dL Lactic Acid 0.8 (0.5-2.0) mmol/L Calcium 9.2 (8.6-10.3) mg/dL Total Bilirubin 0.50 (0.2-1.0) mg/dL AST 14 (13-39) U/L ALT 14 (7-52) U/L Alkaline Phosphatase 85 (34-104) U/L Troponin I 0.01 (<0.04) ng/mL C-Reactive Protein 221.42 H (< 5.00) mg/L B-Natriuretic Peptide ( - 100) pg/mL Total Protein 7.0 (6.4-8.9) g/dL Albumin 3.8 (3.2-5.2) g/dL Globulin 3.2 (2-4) g/dL Albumin/Globulin Ratio 1.2 (1-3) 10/16/ Range/Units 14:23 WBC (3.5-10.8) 10^3/ul RBC (4.0-5.4) 10^6/ul Hgb (14.0-18.0) g/dl Hct (42-52) % MCV (80-94) fL MCH (27-31) pg MCHC (31-36) g/dl RDW (10.5-15) % Plt Count (150-450) 10^3/ul MPV (7.4-10.4) um3 Neut % (Auto) (38-83) % Lymph % (Auto) (25-47) % [place] % (Auto) (1-9) % Eos % (Auto) (0-6) % Baso % (Auto) (0-2) % Absolute Neuts (auto) (1.5-7.7) 10^3/ul Absolute Lymphs (auto) (1.0-4.8) 10^3/ul Absolute Monos (auto) (0-0.8) 10^3/ul Absolute Eos (auto) (0-0.6) 10^3/ul Absolute Basos (auto) (0-0.2) 10^3/ul Absolute Nucleated RBC 10^3/ul Nucleated RBC % Sodium (133-145) mmol/L Potassium (3.5-5.0) mmol/L Chloride (101-111) mmol/L Carbon Dioxide (22-32) mmol/L Anion Gap (2-11) mmol/L BUN (6-24) mg/dL Creatinine (0.67-1.17) mg/dL Est GFR ( Amer) (>60) Est GFR (Non-Af Amer) (>60) BUN/Creatinine Ratio (8-20) Glucose (70-100) mg/dL Lactic Acid (0.5-2.0) mmol/L Calcium (8.6-10.3) mg/dL Total Bilirubin (0.2-1.0) mg/dL AST (13-39) U/L ALT (7-52) U/L Alkaline Phosphatase (34-104) U/L Troponin I (<0.04) ng/mL C-Reactive Protein (< 5.00) mg/L B-Natriuretic Peptide 91 ( - 100) pg/mL Total Protein (6.4-8.9) g/dL Albumin (3.2-5.2) g/dL Globulin (2-4) g/dL Albumin/Globulin Ratio (1-3) Result Diagrams: 10/16/17 14:23 10/16/17 14:23 Lab Statement: Any lab studies that have been ordered have been reviewed, and results considered in the medical decision making process. - Radiology Chest XR Xray Interpretation: Positive (See Comments) - IMPRESSION: Hyperinflation with suspected pulmonary arterial hypertension. Pulmonary vascular congestion. Dr. Herrmann has reviewed this radiology report. Radiology Interpretation Completed By: Radiologist - EKG 14:08 Cardiac Rate: NL EKG Rhythm: Sinus Rhythm - at 70 bpm EKG Interpretation: Vertical axis. Non-specific septal changes. Re-Evaluation - Re-Evaluation First Eval Re-Evaluation Time: 16:55 Comment: I reviewed the XR and lab results with the pt. Pt will call Dr. Berg tomorrow morning. Course/Dx - Course Course Of Treatment: Mr. Espino presented with a worsening cough and SOB. He has been on and off antibiotics and steroids this fall and was recently weaned down. He wasn't too sick here but I think the he, unfortunately does need to have another round of steroids and antibiotics. - Diagnoses Provider Diagnoses: Bronchitis, COPD exacerbation Discharge - Discharge Plan Condition: Stable Disposition: HOME Prescriptions: Clarithromycin TAB* [Biaxin TAB*] 500 mg PO BID #20 tab Methylprednisolone [Medrol Dosepak 4 MG*] 4 mg PO .SEE NOVA INSTRUCTION #1 tab Patient Education Materials: Acute Bronchitis (ED), COPD (Chronic Obstructive Pulmonary Disease) (ED) Referrals: Min Dietz MD [Primary Care Provider] - Additional Instructions: Please call Dr. Berg tomorrow morning. Follow up with your primary care provider. RETURN TO THE ED FOR ANY WORSENING SYMPTOMS. The documentation as recorded by the Jordan shay Angela accurately reflects the service I personally performed and the decisions made by me, Braxton Herrmann MD.
== END 2017-10-16 17:19 | disposition home or self-care (01) ==
LOC: ED 12:56
DX: J44.1 Chronic obstructive pulmonary disease with (acute) exacerbation (principal); Z87.891 Personal history of nicotine dependence; Z88.0 Allergy status to penicillin
CPT/HCPCS: 36415; 71010; 80053; 83605; 83880; 84484; 85025; 86140; 87040; 93005; 94640; 99283; A9270-GY; J2930

== ENCOUNTER 2018-02-15 14:29 | Inpatient (IN) | payer MEDICARE, OTHER ==
[2018-02-15] MEDS ORDERED: Diltiazem IV* 5 MG/ML 5 ML VIAL (for loading dose/IV Push) (25 MG) IV SLOW PU ONE (14:47)
[2018-02-15] MEDS ORDERED: Diltiazem DRIP* 100 MG/100 ML ADDV.BAG IVPB ONE (14:47)
[2018-02-15] MEDS ORDERED: Diltiazem IV VIAL* 125 MG/25 ML VIAL ONE (15:13)
[2018-02-15 15:15] LABS: ABS Basophils 0.1 10^3/ul (0-0.2); ABS Eosinophils 0 10^3/ul (0-0.6); ABS Lymphocytes 0.9 10^3/ul (1.0-4.8); ABS Monocytes 1.4 10^3/ul (0-0.8); ABS Neutrophils 12.2 10^3/ul (1.5-7.7); ABS Nucleated RBC 0 10^3/ul; Eosinophil % 0 % (0-6); Hematocrit 41 % (42-52); Hemoglobin 13.5 g/dl (14.0-18.0); Lymphocyte % 6.4 % (25-47); Mean Corpuscular HGB Conc 33 g/dl (31-36); Mean Corpuscular Hemoglobin 30 pg (27-31); Mean Corpuscular Volume 90 fL (80-94); Mean Platelet Volume 8.3 um3 (7.4-10.4); Nucleated Red Blood Cells % 0; Platelet Count 181 10^3/ul (150-450); Red Blood Count 4.59 10^6/ul (4.0-5.4); Red Cell Distribution Width 14 % (10.5-15); White Blood Count 14.6 10^3/ul (3.5-10.8)
[2018-02-15 15:24] LABS: INR 1.33 (0.77-1.02)
--- NOTE | 2018-02-15 15:31 | RAD ---
INDICATION: Shortness of breath. COMPARISON: Comparison is made with a prior study from January 01, 2018. TECHNIQUE: A portable view of the chest was obtained. FINDINGS: The heart is mildly enlarged and unchanged from the prior exam. The lungs are hyperinflated. There is mild diffuse prominence of the interstitial markings which are unchanged. There has been interval resolution of the previously noted small left pleural effusion. There is a faint nodular density which projects over the peripheral aspect of the left midlung measuring 1.2 cm in size which is not seen on the prior study. IMPRESSION: 1. FAINT NODULAR DENSITY PROJECTS OVER THE LEFT LUNG. RECOMMEND DUAL-ENERGY PA AND LATERAL CHEST FILMS FOR FURTHER EVALUATION. 2. FINDINGS SUGGESTIVE OF COPD, NO EVIDENCE FOR ACUTE FINDING.
[2018-02-15 15:52] LABS: EGFR Non-African American 129.9 (>60)
[2018-02-15] MEDS ORDERED: Vancomycin(*) 1,000 MG in NS 0.9% 250 ML* 250 ML IVPB ONE (15:58)
[2018-02-15] MEDS ORDERED: guaiFENesin ER TAB 600 MG PO PRN (17:10)
[2018-02-15] MEDS ORDERED: Iohexol 350* (CONTRAST) 500 ML MDV IV ONE (17:26)
[2018-02-15] MEDS ORDERED: Acetaminophen TAB* 325 MG PO PRN (17:41)
[2018-02-15] MEDS ORDERED: Al Hydrox/Mg Hydrox/Simet LIQ* 30 ML UDC PO PRN (17:41)
[2018-02-15] MEDS ORDERED: oxyCODONE/Acetamin 5/325 MG* TAB PO PRN (17:41)
[2018-02-15] MEDS ORDERED: Cefepime(*) 1 GM in NS 0.9% 50 ML* 50 ML IVPB SCH (18:00)
--- NOTE | 2018-02-15 18:33 | RAD ---
INDICATION: Chest pain and shortness of breath, history of pulmonary vein ablation, aspiration and fever. COMPARISON: Comparison is made with a prior CT of the chest from January 31, 2017 and a prior chest x-ray study from February 15, 2018. TECHNIQUE: A CT angiogram of the chest was performed with intravenous following intravenous injection of 71 ml of Omnipaque 350 nonionic contrast. Contiguous axial sections were obtained from the lung apices through the lung bases. Images were reconstructed in the coronal and sagittal planes. FINDINGS: There is relatively homogeneous opacification of the pulmonary arteries. No intraluminal filling defect or pulmonary embolism is seen. The heart is within normal limits in size. There are coronary artery calcifications present. No pericardial effusion is present. There is mild ectasia of the ascending thoracic aorta measuring up to 4 cm in transverse dimension. There is mild calcific plaque present. There are mildly prominent aorticopulmonary window lymph nodes measuring up to 1.1 cm in transverse dimension. No significant enlarged hilar lymph nodes are seen. There is moderate centrilobular emphysematous change. There are patchy infiltrates present in the left upper and lower lobes suggestive of pneumonia. One of the densities located peripherally in the left upper lobe appears to account for the nodular density noted on the prior chest x-ray study. There is a small left pleural effusion. No significant focal osseous abnormality is seen. IMPRESSION: 1. NO EVIDENCE FOR PULMONARY EMBOLISM. 2. LEFT UPPER AND LOWER LOBE INFILTRATES AND SMALL LEFT PLEURAL EFFUSION SUGGESTIVE OF PNEUMONIA. 3. MILDLY PROMINENT MEDIASTINAL LYMPH NODES. 4. EMPHYSEMA.
[2018-02-15] MEDS ORDERED: Vancomycin(*) 1,000 MG in NS 0.9% 250 ML* 250 ML IVPB SCH (19:00)
[2018-02-15] MEDS ORDERED: Vancomycin per Pharmacy* NOTE FOLLOW UP PRN (19:47)
--- NOTE | 2018-02-15 20:34 | CONS ---
CC: Dr. Rebolledo; Dr. Dietz * CARDIOLOGY CONSULTATION: DATE OF CONSULT: 02/15/18 REFERRING PHYSICIAN: Dr. Braxton Herrmann. REASON FOR CARDIOLOGY CONSULT: Recurrent atrial fibrillation/flutter post atrial flutter ablation by Dr. Landrum of [facility] Electrophysiology service yesterday and the patient has a fever today. HISTORY OF PRESENT ILLNESS: The patient is accompanied by his and daughter -in-law in the emergency room where I am performing this cardiology consultation as the patient is being admitted. He apparently had an atrial flutter ablation yesterday with his direct support staff member Dr. Anup Landrum at [facility]. At that time, his Multaq was stopped. The patient was discharged home in normal rhythm per the patient's . This morning, the patient woke up and had midsternal chest discomfort as well as not feeling well and shortness of breath. He came to the emergency room and here he was found to have a temperature of 101.2 degrees Fahrenheit and is found to have paroxysmal atrial fibrillation/flutter while I am examining the patient. He himself has no palpitations. PAST MEDICAL HISTORY: Significant for atrial flutter/fibrillation with AFl ablation yesterday with his direct support staff member, Dr. 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 MEDICATIONS: Outpatient medication list is pending, but the patient does share with me that he is on Eliquis started by his direct support staff member Dr. Landrum one month agoa, and Dr. Landrum also stopped the patient's Multaq yesterday. ALLERGIES: To medications are PENICILLIN, which caused his feet to swell as well as DALIRESP, which caused the patient to lose 30 to 40 pounds from being nauseated. He denies shrimp, sea food, or dye allergy. FAMILY HISTORY: His mother and father both of heart disease. His mother has a history of stroke. Family history of diabetes and cancer as well. SOCIAL HISTORY: He has been for 51 years. He quit smoking cigarettes 5 years ago after having smoked up to 2 packs per day for 50 years. He does not abuse alcohol. He drinks a coca-cola 1 to 2 per week. He does not do regular exercise. 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 REVIEW OF SYSTEMS: He denies a personal history of stroke, cancer, vomiting up blood, coughing up blood, bright red blood per rectum, bleeding stomach ulcers, renal calculi, cholelithiasis, asthma. He does have a history of oxygen- dependent COPD, 2 L round the clock. He has had pneumonia requiring hospitalization. He denies tuberculosis, sleep apnea. He does use chronic O2 at home, 2 L. He denies diabetes, hypertension, prior GA, congestive heart failure, cardiac surgery, cardiac murmurs, palpitations, psychiatric illnesses, lupus, psoriasis, seizures, Parkinson's disease, myasthenia gravis, thyroid disorders, liver disorders, kidney disorders, claudication symptoms, pulmonary emboli, deep venous thrombosis, peripheral arterial disease. He does have occasional peripheral edema, he has occasional heartburn. All other review of systems are negative x14 except as described above. PHYSICAL EXAM: Height 5 feet 9 inches, weight 178 pounds. Temperature 101.2 degrees Fahrenheit, pulse is ranging from 72 to 155 and again the patient while I am examining him, is having paroxysmal atrial fibrillation/flutter as well as runs of sinus rhythm. O2 saturation is ranging from 86% to 96%, blood pressure 141/81, respiratory rate 24. General: He is a chronically ill-appearing gentleman who appears older than his stated age, in no acute distress at rest. HEENT: Shows the cranium is normocephalic and atraumatic. He has dry mucosal membranes. Neck veins are not distended. There are no carotid bruits. Visible skin warm and perfused. Affect appropriate. He appears oriented. No significant kyphoscoliosis on back exam. Lungs reveal increased expiratory phase with rare wheezes. No rales. Cardiac Exam: S1, S2, regular rate, controlled (as patient in NSR while I am examining him as confirmed on concomitant tele monitor) . No significant murmurs, rubs, or gallops. PMI is nondisplaced. Abdomen: Soft, nondistended. Appears benign. Extremities: With no more than trivial peripheral edema. Pulses appear grossly intact. DIAGNOSTIC STUDIES/LAB DATA: The patient completed a transesophageal echocardiogram on 03/05/14, which showed normal left ventricular size and normal left ventricular ejection fraction of 55% to 60%. The patient believes he has had a stress test in the past, which is reportedly benign (that report is not currently available to me). A 12-lead EKG today shows AF with NS ST/T changes.. Telemetry review shows paroxysmal atrial fibrillation/flutter. White blood cell count 14.6, hematocrit 41, platelet count 181,000. INR 1.33. Serum chemistries are pending. Troponin is 0.25. IMPRESSION: Mr. Espino is a 72-year-old gentleman with history of severe oxygen - dependent chronic obstructive pulmonary disease with history of atrial fibrillation/atrial flutter, who had atrial flutter ablation yesterday and his chronic Multaq was stopped. He is now presenting to the emergency room with shortness of breath and pleuritic chest discomfort with fever likely related to chronic obstructive pulmonary disease exacerbation with upper respiratory infection. He is having only paroxysms of atrial fibrillation and atrial flutter and that is likely consequent to his fever and not unexpected this early postablation. I am making the following recommendations which the patient and his family are in agreement with. RECOMMENDATIONS: 1. I think it is reasonable to place the patient on Cardizem drip if his heart rate were to be consistently great than 100 while he is in atrial fibrillation/ atrial flutter. 2. Continue Eliquis. 3. Agree with fever workup and I think it is reasonable to check with his direct support staff member, Dr. Landrum, regarding possible aspiration at the time of his ablation or other causes of fever. 4. We would recommend restarting Multaq if okay with Dr. Landrum. Tolerate PAF/ PAFl at this time especially in setting of infectious process while continuing chronic Eliquis bid. 5. 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 Rebolledo. 6. His minor troponinemia appears secondary to ablation and can recheck in the morning. The patient has no symptoms of acute coronary syndrome at this time. I have discussed the case with Dr. Braxton Herrmann of and Dr. Casas who is admitting the patient to the Hospitalist Medicine service. Dear Dr. Braxton Herrmann, many thanks for asking me to perform cardiology consultation on Mr. Espino. Please do not hesitate to contact me if you have any questions or concerns regarding this cardiovascular consultative care. [id number]/[facility] #: [id number] ST[facility] BROOK E[facility] ISLAND HOSPITALDannie
--- NOTE | 2018-02-15 21:39 | ED ---
Heaven Gale Gabriel, scribed for Braxton Herrmann MD on 02/15/18 at 1450 . HPI Chest Pain - HPI Summary HPI Summary: This patient is a 72 year old M presenting to [facility] accompanied by his family with a chief complaint of CP that began this morning. The patient rates the pain 3/10 in severity. Patient reports SOB, fever, and irregular heart rate. Patient denies nausea, cough that is worse than baseline, and vomiting. Pt had a cardiac ablation yesterday for atrial flutter Hx COPD - History of Current Complaint Chief Complaint: EDChestPainROMI Time Seen by Provider: 02/15/18 14:40 Hx Obtained From: Patient Onset/Duration: Still Present Timing: Constant Initial Severity: Mild Current Severity: Mild Pain Intensity: 3 Pain Scale Used: 0-10 Numeric Chest Pain Location: Diffuse Chest Pain Radiates: No Associated Signs and Symptoms: Positive: Other: - SOB, fever, irregular heart rate, - Additional Pertinent History Primary Care Physician: DARLENE - Allergy/Home Medications Allergies/Adverse Reactions: Allergies Allergy/AdvReac Type Severity Reaction Status Date / Time Penicillins Allergy Severe Swelling Verified 02/15/18 17:24 roflumilast Allergy Unknown Verified 02/15/18 17:24 Reaction Details Home Medications: Home Medications Albuterol HFA INHALER* [Ventolin HFA Inhaler*] 2 puff INH Q4H PRN 02/15/18 [ History Confirmed 02/15/18] Apixaban* [Eliquis*] 5 mg PO BID 02/15/18 [History Confirmed 02/15/18] Digoxin TAB* [Lanoxin TAB*] 0.5 tab PO DAILY 02/15/18 [History Confirmed ] Multivitamins/Minerals TAB* [Theragran/minerals TAB*] 1 tab PO DAILY 02/15/18 [ History Confirmed 02/15/18] guaiFENesin ER TAB [Mucinex*] 600 mg PO BID PRN 02/15/18 [History Confirmed ] PMH/Surg Hx/FS Hx/Imm Hx Endocrine/Hematology History: Denies: Hx Diabetes, Hx Sickle Cell Disease Cardiovascular History: Reports: Other Cardiovascular Problems/Disorders - NEW ONSET AFIB, SURGERY CANCELLED IN NOV. ON CARDIZIEM Denies: Hx Angina, Hx Congestive Heart Failure, Hx Coronary Artery Disease, Hx Hypercholesterolemia, Hx Hypertension, Hx Myocardial Infarction, Hx Pacemaker /ICD, Hx Valvular Heart Disease Respiratory History: Reports: Hx Chronic Obstructive Pulmonary Disease (COPD) Denies: Hx Asthma Comment Only: Other Respiratory Problems/Disorders - COPD GI History: Reports: Other GI Disorders - CURRENT CHOLELITHIASIS History: Denies: Hx Dialysis, Hx Renal Disease, Other Problems/Disorders Musculoskeletal History: Reports: Other Musculoskeletal History - PINCH NERVE IN NECK Sensory History: Reports: Hx Cataracts - REMOVED BILATERAL EYES, Hx Contacts or Glasses - READING GLASSES Denies: Hx Glaucoma, Hx Hearing Aid Opthamlomology History: Reports: Hx Cataracts - REMOVED BILATERAL EYES, Hx Contacts or Glasses - READING GLASSES Denies: Hx Glaucoma Neurological History: Denies: Hx Headaches, Other Neuro Impairments/Disorders Psychiatric History: Denies: Hx Panic Disorder - Surgical History Surgery Procedure, Year, and Place: 2009 LEFT CATARACT [facility]. 2011 RIGHT CATARACT [facility]. 2010 TUMOR EXC FACE [facility]. mike Hx Anesthesia Reactions: No Infectious Disease History: No Infectious Disease History: Denies: Traveled Outside the [place] in Last 30 Days - Family History Known Family History: Positive: Cardiac Disease - Mother. , Diabetes - Mother. - Social History Lives: With Family Alcohol Use: None Substance Use Type: Reports: None Smoking Status (MU): Former Smoker Type: Cigarettes Amount Used/How Often: 2 PPD Length of Time of Smoking/Using Tobacco: 50+ YEARS Have You Smoked in the Last Year: No Review of Systems Positive: Fever Positive: Chest Pain, Other - irregular heart rate, Positive: Shortness Of Breath. Negative: Cough Negative: Vomiting, Nausea All Other Systems Reviewed And Are Negative: Yes Physical Exam - Summary Physical Exam Summary: Appearance: The patient is an elderly male who is ill appearing Skin: The skin is warm and diaphoretic HEENT: The head is normocephalic and atraumatic. The pupils are equal and reactive. The conjunctivae are clear and without drainage. Nares are patent and without drainage. Mouth reveals moist mucous membranes and the throat is without erythema and exudate. The external ears are intact. The ear canals are patent and without drainage. The tympanic membranes are intact. Neck: the neck is supple with full range of motion and non-tender. There are no carotid bruits. There is no neck vein distension. Respiratory: Chest is non-tender. Breath sounds are diminished Cardiovascular: tachycardic and irregular. There is no murmur or rub auscultated. There is no peripheral edema and pulses are symmetrical and equal. Abdomen: The abdomen is soft and non-tender. There are normal bowel sounds heard in all four quadrants and there is no organomegaly palpated. Musculoskeletal: There is no back tenderness noted. Extremities are non-tender with full range of motion. There is good capillary refill. There is no peripheral edema or calf tenderness elicited. Neurological: Patient is alert and oriented to person, place and time. The patient has symmetrical motor strength in all four extremities. Cranial nerves are grossly intact. Deep tendon reflexes are symmetrical and equal in all four extremities. Psychiatric: The patient has an appropriate affect and does not exhibit any anxiety or depression. Triage Information Reviewed: Yes Vital Signs On Initial Exam: Initial Vitals Temp Pulse Resp BP Pulse Ox 101.2 F 155 24 141/81 86 02/15/18 14:31 02/15/18 14:31 02/15/18 14:31 02/15/18 14:31 02/15/18 14:31 Vital Signs Reviewed: Yes Diagnostics - Vital Signs Vital Signs Temp Pulse Resp BP Pulse Ox 02/15/18 14:31 101.2 F 155 24 141/81 86 - Laboratory Lab Results: Lab Results 02/15/18 02/15/18 02/15/18 Range/Units 14:55 14:55 14:55 WBC 14.6 H (3.5-10.8) 10^3/ul RBC 4.59 (4.0-5.4) 10^6/ul Hgb 13.5 L (14.0-18.0) g/dl Hct 41 L (42-52) % MCV 90 (80-94) fL MCH 30 (27-31) pg MCHC 33 (31-36) g/dl RDW 14 (10.5-15) % Plt Count 181 (150-450) 10^3/ul MPV 8.3 (7.4-10.4) um3 Neut % (Auto) 83.6 H (38-83) % Lymph % (Auto) 6.4 L (25-47) % [place] % (Auto) 9.5 H (0-7) % Eos % (Auto) 0 (0-6) % Baso % (Auto) 0.5 (0-2) % Absolute Neuts (auto) 12.2 H (1.5-7.7) 10^3/ul Absolute Lymphs (auto) 0.9 L (1.0-4.8) 10^3/ul Absolute Monos (auto) 1.4 H (0-0.8) 10^3/ul Absolute Eos (auto) 0 (0-0.6) 10^3/ul Absolute Basos (auto) 0.1 (0-0.2) 10^3/ul Absolute Nucleated RBC 0 10^3/ul Nucleated RBC % 0 INR (Anticoag Therapy) 1.33 H (0.77-1.02) Sodium 139 (139-145) mmol/L Potassium 3.9 (3.5-5.0) mmol/L Chloride 98 L (101-111) mmol/L Carbon Dioxide 36 H (22-32) mmol/L Anion Gap 5 (2-11) mmol/L BUN 12 (6-24) mg/dL Creatinine 0.61 L (0.67-1.17) mg/dL Est GFR ( Amer) 167.1 (>60) Est GFR (Non-Af Amer) 129.9 (>60) BUN/Creatinine Ratio 19.7 (8-20) Glucose 118 H (70-100) mg/dL Lactic Acid (0.5-2.0) mmol/L Calcium 9.2 (8.6-10.3) mg/dL Total Bilirubin 0.60 (0.2-1.0) mg/dL AST 34 (13-39) U/L ALT 98 H (7-52) U/L Alkaline Phosphatase 85 (34-104) U/L Troponin I 0.25 H* (<0.04) ng/mL C-Reactive Protein 136.97 H (< 5.00) mg/L B-Natriuretic Peptide ( - 100) pg/mL Total Protein 6.5 (6.4-8.9) g/dL Albumin 3.8 (3.2-5.2) g/dL Globulin 2.7 (2-4) g/dL Albumin/Globulin Ratio 1.4 (1-3) Procalcitonin (<0.6) ng/mL Digoxin (0.8-2.0) ng/ml 02/15/18 02/15/18 02/15/18 Range/Units 14:55 14:55 14:55 WBC (3.5-10.8) 10^3/ul RBC (4.0-5.4) 10^6/ul Hgb (14.0-18.0) g/dl Hct (42-52) % MCV (80-94) fL MCH (27-31) pg MCHC (31-36) g/dl RDW (10.5-15) % Plt Count (150-450) 10^3/ul MPV (7.4-10.4) um3 Neut % (Auto) (38-83) % Lymph % (Auto) (25-47) % [place] % (Auto) (0-7) % Eos % (Auto) (0-6) % Baso % (Auto) (0-2) % Absolute Neuts (auto) (1.5-7.7) 10^3/ul Absolute Lymphs (auto) (1.0-4.8) 10^3/ul Absolute Monos (auto) (0-0.8) 10^3/ul Absolute Eos (auto) (0-0.6) 10^3/ul Absolute Basos (auto) (0-0.2) 10^3/ul Absolute Nucleated RBC 10^3/ul Nucleated RBC % INR (Anticoag Therapy) (0.77-1.02) Sodium (139-145) mmol/L Potassium (3.5-5.0) mmol/L Chloride (101-111) mmol/L Carbon Dioxide (22-32) mmol/L Anion Gap (2-11) mmol/L BUN (6-24) mg/dL Creatinine (0.67-1.17) mg/dL Est GFR ( Amer) (>60) Est GFR (Non-Af Amer) (>60) BUN/Creatinine Ratio (8-20) Glucose (70-100) mg/dL Lactic Acid 0.8 (0.5-2.0) mmol/L Calcium (8.6-10.3) mg/dL Total Bilirubin (0.2-1.0) mg/dL AST (13-39) U/L ALT (7-52) U/L Alkaline Phosphatase (34-104) U/L Troponin I (<0.04) ng/mL C-Reactive Protein (< 5.00) mg/L B-Natriuretic Peptide 106 H ( - 100) pg/mL Total Protein (6.4-8.9) g/dL Albumin (3.2-5.2) g/dL Globulin (2-4) g/dL Albumin/Globulin Ratio (1-3) Procalcitonin 0.1 (<0.6) ng/mL Digoxin (0.8-2.0) ng/ml 02/15/18 Range/Units 14:55 WBC (3.5-10.8) 10^3/ul RBC (4.0-5.4) 10^6/ul Hgb (14.0-18.0) g/dl Hct (42-52) % MCV (80-94) fL MCH (27-31) pg MCHC (31-36) g/dl RDW (10.5-15) % Plt Count (150-450) 10^3/ul MPV (7.4-10.4) um3 Neut % (Auto) (38-83) % Lymph % (Auto) (25-47) % [place] % (Auto) (0-7) % Eos % (Auto) (0-6) % Baso % (Auto) (0-2) % Absolute Neuts (auto) (1.5-7.7) 10^3/ul Absolute Lymphs (auto) (1.0-4.8) 10^3/ul Absolute Monos (auto) (0-0.8) 10^3/ul Absolute Eos (auto) (0-0.6) 10^3/ul Absolute Basos (auto) (0-0.2) 10^3/ul Absolute Nucleated RBC 10^3/ul Nucleated RBC % INR (Anticoag Therapy) (0.77-1.02) Sodium (139-145) mmol/L Potassium (3.5-5.0) mmol/L Chloride (101-111) mmol/L Carbon Dioxide (22-32) mmol/L Anion Gap (2-11) mmol/L BUN (6-24) mg/dL Creatinine (0.67-1.17) mg/dL Est GFR ( Amer) (>60) Est GFR (Non-Af Amer) (>60) BUN/Creatinine Ratio (8-20) Glucose (70-100) mg/dL Lactic Acid (0.5-2.0) mmol/L Calcium (8.6-10.3) mg/dL Total Bilirubin (0.2-1.0) mg/dL AST (13-39) U/L ALT (7-52) U/L Alkaline Phosphatase (34-104) U/L Troponin I (<0.04) ng/mL C-Reactive Protein (< 5.00) mg/L B-Natriuretic Peptide ( - 100) pg/mL Total Protein (6.4-8.9) g/dL Albumin (3.2-5.2) g/dL Globulin (2-4) g/dL Albumin/Globulin Ratio (1-3) Procalcitonin (<0.6) ng/mL Digoxin 0.5 L (0.8-2.0) ng/ml Result Diagrams: 02/15/18 14:55 02/15/18 14:55 Lab Statement: Any lab studies that have been ordered have been reviewed, and results considered in the medical decision making process. - Radiology CXR Radiology Interpretation Completed By: Radiologist - , 1. FAINT NODULAR DENSITY PROJECTS OVER THE LEFT LUNG. RECOMMEND DUAL-ENERGY PA AND LATERAL CHEST FILMS FOR FURTHER EVALUATION. 2. FINDINGS SUGGESTIVE OF COPD, NO EVIDENCE FOR ACUTE FINDING. ED physician has reviewed this radiology report. - EKG 14:46 Cardiac Rate: Other Rate EKG Rhythm: Atrial Fibrillation - at 123 BPM EKG Interpretation: afib with RVR Re-Evaluation - Re-Evaluation First Eval Re-Evaluation Time: 16:00 Change: Unchanged Comment: I discussed admission with the patient. Chest Pain Course/Dx - Course Course Of Treatment: Mr. Espino presented with a fever and subjective SOB. He had an ablation yesterday for atrial flutter. He has a chronic cough but it has seemed worse to him for the last week or so. He presented with A-fib in the 140s. His initial CXR was unremarkable and he was given vancomycin initially with fluids and his rate was controlled with cardizem. Dr. Kelly has seen him in the ED and he is being admitted to the hospitalist service. - Diagnoses Provider Diagnoses: Atrial fibrillation with RVR, Sepsis - Provider Notifications Discussed Care Of Patient With: Ebenezer Herrera Time Discussed With Above Provider: 16:10 Instructed by Provider To: Admit As Inpatient - Critical Care Time Critical Care Time: 30-74 min Discharge - Sign-Out/Discharge Documenting (check all that apply): Discharge - Discharge Plan Condition: Fair Disposition: ADMITTED TO [facility] - Billing Disposition and Condition Condition: FAIR Disposition: [facility] The documentation as recorded by the Heaven shay Gabriel accurately reflects the service I personally performed and the decisions made by me, Braxton Herrmann MD.
[2018-02-15] MEDS: Albuterol 2.5 MG/3 ML NEB.SOL* (0.083%) INH PRN (21:49)
[2018-02-15] MEDS: Cefepime 1 GM in Dextrose(*) 1 GM/50 ML BAG IV SCH (21:54)
[2018-02-15] MEDS: Hydrocortisone INJ* 100 MG VIAL IV SCH (21:54)
[2018-02-15] MEDS: Dronedarone TAB* 400 MG PO SCH (21:56)
[2018-02-15] MEDS: Apixaban* 5 MG TAB PO SCH (21:56)
[2018-02-15] MEDS: Omeprazole CAP* 20 MG PO SCH (21:56)
[2018-02-15] MEDS: Docusate CAP* 100 MG PO SCH (21:56)
--- NOTE | 2018-02-15 21:58 | HP ---
CC: Dr. Landrum; Dr. Dietz; Dr. Rebolledo; Dr. Berg * HISTORY AND PHYSICAL: DATE OF ADMISSION: 02/15/18 PRIMARY CARE PROVIDER: Min Dietz MD PSYCH ARNP: Francisco J Rebolledo MD OIL DISPENSER: Dr. Landrum from [place], [place] CHIEF COMPLAINT: Shortness of breath and fever. HISTORY OF PRESENT ILLNESS: Kory Espino is a 72-year-old male with history of status post cardiac ablation for atrial fibrillation performed by Dr. Landrum yesterday at [facility] who presented next day after his procedure complaining of fever or 101 with wheezing and left-sided pleuritic chest pain. The patient stated that his procedure lasted 2 hours and he did well. He had no problems until he woke up in the morning when he started experiencing shortness of breath and left-sided pleuritic chest pain. Upon evaluation in the emergency room, he had a fever of 101 degrees, leukocytosis, and elevated C-reactive protein. His troponin was also mildly elevated but that could be just related to his cardiac ablation yesterday. He is going to be admitted with diagnosis of fever. He is also in atrial fibrillation with rapid ventricular response. He was placed on Cardizem in the emergency room, and he is going to be placed in the intensive care unit for further monitoring and treatment. PAST MEDICAL HISTORY: 1. History of trial fibrillation status post ablation performed by Dr. Landrum at [facility] on 02/14/18. 2. History of COPD, on 3 L of nasal cannula at the baseline. 3. History of status post cholecystectomy in January 2016. 4. History of cataract surgery bilaterally. 5. 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 CURRENT MEDICATIONS: Include: The patient was just discontinued from dronedarone 400 mg b.i.d. that was discontinued after his ablation. Remaining medications that are current and include: 1. Albuterol inhaler on p.r.n. basis. 2. Albuterol nebulizer on p.r.n. basis. 3. Eliquis 5 mg b.i.d. which was not stopped for the procedure. 4. Aspirin 81 mg daily. 5. Symbicort 2 puffs b.i.d. 6. Vitamin D3 1000 units daily. 7. Digoxin 0.0625 mg daily which is a half of 0.125 mg tablet. 8. Diltiazem CD 240 mg daily. 9. Mucinex 600 mg b.i.d. p.r.n. 10. Multivitamin daily. 11. Prednisone 5 mg daily. 12. Spiriva inhalation daily. ALLERGIES: Include PENICILLIN and ROFLUMILAST. FAMILY HISTORY: Positive for mother with history of heart disease and bypass grafting in the past, as well as breast cancer. Father with history of atrial fibrillation and COPD. SOCIAL HISTORY: The patient has a history of [id number] smoking. He quit approximately 4 years ago. He denies any alcohol or drug use. He lives with his who is his healthcare proxy. REVIEW OF SYSTEMS: Please see history of present illness. In addition to the above mentioned, all the remaining 12 systems were reviewed with the patient and were otherwise negative. Patient stated that he is "always shortness of breath" and always wheezy. He uses oxygen at 3 L of nasal cannula continuously. PHYSICAL EXAMINATION GENERAL: The patient is a 72-year-old male, who is in no acute distress. Alert , awake, and oriented x3. VITAL SIGNS: Blood pressure of 141/81, heart rate of 155 and irregularly irregular, respiratory rate 24, oxygen saturation 96% on 3 L of oxygen nasal cannula, temperature 101.2. HEENT: Head: Atraumatic, normocephalic. Eyes: Pupils are equal, reactive to light and accommodation. Oropharynx clear. Mucosa moist. NECK: Supple. No JVD. No bruits bilaterally. RESPIRATORY: Diffuse wheezes and bibasilar rhonchi noted. CARDIOVASCULAR: Irregularly irregular rhythm. No murmur. ABDOMEN: Soft, nontender. Bowel sounds present in all quadrants. EXTREMITIES: There was no edema. Pulses +2 bilaterally. No clubbing or cyanosis. NEUROLOGIC EVALUATION: Speech clear. Cranial nerves II through XII grossly intact. Motor strength is 5/5 bilaterally. The patient is slightly hard of hearing. SKIN: On evaluation of skin, the patient's ablation site on the right groin has showed clean puncture site with small amount of ecchymotic area around. There are no palpable masses detected and the area is not tender and not cellulitic. Remaining evaluation of the skin, no other ecchymotic areas or rashes noted. DIAGNOSTIC STUDIES/LAB DATA: Laboratory data showed sodium of 139, potassium 3.9, chloride 98, carbon dioxide 36, BUN 12, creatinine 0.61. Liver function tests showed slight elevation of the ALT of 98; otherwise unremarkable. C- reactive protein was 136. Troponin was 0.25. Procalcitonin of 0.1. CBC: White blood cell count of 14.6, hemoglobin of 13.5, hematocrit 41, and platelets of 181. Urinalysis pending at the time of dictation as well as CT angiogram of the chest. Portable chest x-ray showed faint nodular density projects over the left lung. Recommend dual-energy chest films for further evaluation. Findings suggestive of COPD. No evidence of acute finding present on auscultation. ASSESSMENT AND PLAN: 1. The patient's fever source so far had not been identified. The differential includes possibility of aspiration in a patient who is sedated and undergoing a cardiac ablation yesterday. I will also obtain urinalysis to rule out urinary tract infection. The patient did not have a Vera catheter placed for the procedure. Flu swab is obtained and pending. It is also possible that the patient had bacteremia from induction of bacteria during the procedure. At this point, the plan is to obtain blood cultures that are pending at the time of dictation. Vancomycin and cefepime are going to be instituted for treatment. I will obtain CT angiogram of the chest to rule out pneumonia but also to evaluate for possibility of pulmonary vein thrombosis. 2. In regards to the patient's left-sided pleuritic chest pain and worsening shortness of breath, pulmonary embolism and pulmonary vein thrombosis postprocedure needs to be ruled out by a CT angiogram of the chest which is going to be obtained today. 3. The patient's chronic obstructive pulmonary disease appears to be in exacerbation. The patient also needs to be placed on stress dose steroids while fighting the infection and for both of those purposes the patient is going to be placed on Solu-Cortef at 50 mg IV every 8 hours. Antibiotics that are going to be utilized as above and the patient is going to be treated with DuoNeb as needed. 4. The patient's atrial fibrillation is likely reactive to his infection. The patient is already on Cardizem which is going to be continued. I appreciate Dr. Kelly's consultation from Cardiology. I will place the patient back on Multaq and continue digoxin. The patient is also going to be restarted on Cardizem in the morning. Hopefully, the patient by that time is going to be in rate controlled rhythm. For the time being, I am going to continue Cardizem drip. 5. For DVT prophylaxis, the patient is going to be continued on his Eliquis. 6. The patient's code status is full and his surrogate is his . TIME SPENT: Approximately 65 minutes were spent on admission of this patient, more than half that time was spent [id number] with the patient during the interview and physical exam. [id number]/[facility] #: [id number] RENAE
[2018-02-15 22:11] LABS: Urine Appearance Clear; Urine Blood 2+ (Negative); Urine Color Yellow; Urine Ketones 1+ (Negative); Urine Protein Negative (Negative); Urine Specific Gravity > 1.060 (1.010-1.030); Urine Urobilinogen Negative (Negative)
--- NOTE | 2018-02-15 23:02 | PN ---
Progress Note - Progress Note Date of Service: 02/15/18 Note: Patient converted to NSR - will start Cardizem 60 mg q [address] of his 240 CD and stop IV cardizem.
[2018-02-16] MEDS: Diltiazem TAB* 60 MG PO SCH ×2 (00:43→05:15)
[2018-02-16] MEDS: Vancomycin(*) 1,000 MG in NS 0.9% 250 ML* 250 ML IVPB SCH ×3 (00:44→19:29)
[2018-02-16] MEDS: Hydrocortisone INJ* 100 MG VIAL IV SCH ×2 (03:43→08:48)
[2018-02-16] MEDS: Cefepime 1 GM in Dextrose(*) 1 GM/50 ML BAG IV SCH ×2 (05:16→18:32)
[2018-02-16 06:15] LABS: EGFR Non-African American 116.6 (>60)
[2018-02-16 06:41] LABS: ABS Basophils 0 10^3/ul (0-0.2); ABS Eosinophils 0 10^3/ul (0-0.6); ABS Lymphocytes 0.7 10^3/ul (1.0-4.8); ABS Monocytes 0.8 10^3/ul (0-0.8); ABS Neutrophils 10.2 10^3/ul (1.5-7.7); ABS Nucleated RBC 0 10^3/ul; Eosinophil % 0 % (0-6); Hematocrit 39 % (42-52); Hemoglobin 12.6 g/dl (14.0-18.0); Lymphocyte % 5.7 % (25-47); Mean Corpuscular HGB Conc 33 g/dl (31-36); Mean Corpuscular Hemoglobin 30 pg (27-31); Mean Corpuscular Volume 91 fL (80-94); Nucleated Red Blood Cells % 0; Platelet Count 169 10^3/ul (150-450); Red Blood Count 4.26 10^6/ul (4.0-5.4); Red Cell Distribution Width 14 % (10.5-15); White Blood Count 11.7 10^3/ul (3.5-10.8)
[2018-02-16] MEDS: Tiotropium CAP.INH* CAP.INH/18 MCG (USE ORDER SET !) INH SCH (07:24)
[2018-02-16] MEDS: Albuterol HFA INHALER* 8 gm MDI INH PRN (07:26)
[2018-02-16] MEDS: Cholecalciferol TAB* 1000 UNITS PO SCH (08:48)
[2018-02-16] MEDS: Dronedarone TAB* 400 MG PO SCH ×2 (08:48→20:42)
[2018-02-16] MEDS: Docusate CAP* 100 MG PO SCH ×2 (08:48→20:42)
[2018-02-16] MEDS: Multivitamins/Minerals TAB PO SCH (08:48)
[2018-02-16] MEDS: Omeprazole CAP* 20 MG PO SCH ×2 (08:48→15:54)
[2018-02-16] MEDS: Apixaban* 5 MG TAB PO SCH ×2 (08:48→20:42)
[2018-02-16] MEDS: Aspirin EC TAB* 81 MG TAB.EC PO SCH (08:48)
[2018-02-16] MEDS: NS 0.9% 1000 ML* 1,000 ML IV SCH (08:59)
[2018-02-16] MEDS ORDERED: Spiriva Inhaler DEVICE* 1 EACH DEVICE INH ONE (09:00)
[2018-02-16] MEDS ORDERED: Diltiazem CD CAP* 240 MG PO SCH (09:00)
[2018-02-16] MEDS ORDERED: predniSONE TAB* 5 MG PO SCH (09:00)
--- NOTE | 2018-02-16 09:28 | PN ---
Subjective Date of Service: 02/16/18 Interval History: Pt is feeling quite a bit better today than yesterday. He denies any significant SOB at this time. He has been coughing up copious amounts of yellow sputum. He has been coughing up the sputum for a while but this is much more than usual. He denies any diarrhea. Objective Active Medications: Acetaminophen (Tylenol Tab*) 650 mg PO Q4H PRN PRN Reason: FEVER/PAIN Albuterol (Ventolin 2.5 Mg/3 Ml Neb.Veronika*) 2.5 mg INH Q6H PRN PRN Reason: SOB/WHEEZING Last Admin: 02/15/18 21:49 Dose: 2.5 mg Albuterol (Ventolin Hfa Inhaler*) 2 puff INH Q4H PRN PRN Reason: SOB/WHEEZING Last Admin: 02/16/18 07:26 Dose: 2 puff Apixaban (Eliquis*) 5 mg PO BID [facility] Last Admin: 02/16/18 08:48 Dose: 5 mg Aspirin (Aspirin Ec Tab*) 81 mg PO DAILY [facility] Last Admin: 02/16/18 08:48 Dose: 81 mg Cholecalciferol (Vitamin D Tab*) 1,000 units PO DAILY [facility] Last Admin: 02/16/18 08:48 Dose: 1,000 units Digoxin (Lanoxin Tab*) 0.0625 mg PO DAILY@1700 [facility] Diltiazem HCl (Cardizem Cd Cap*) 120 mg PO DAILY [facility] Docusate Sodium (Colace Cap*) 100 mg PO BID [facility] Last Admin: 02/16/18 08:48 Dose: 100 mg Dronedarone (Multaq Tab*) 400 mg PO BID [facility] Last Admin: 02/16/18 08:48 Dose: 400 mg Guaifenesin (Mucinex*) 600 mg PO BID [facility] Sodium Chloride (Ns 0.9% 1000 Ml*) 1,000 mls @ 75 mls/hr IV PER RATE [facility] Last Admin: 02/16/18 08:59 Dose: 75 mls/hr Cefepime HCl (Maxipime 1 Gm In Dextrose Duplex (*)) 1 gm in 50 mls @ 100 mls/ hr IV Q12H [facility] Last Admin: 02/16/18 05:16 Dose: 100 mls/hr Vancomycin HCl 1,000 mg/ (Sodium Chloride) 250 mls @ 166.667 mls/hr IVPB Q8H [facility] Last Admin: 02/16/18 08:48 Dose: 166.667 mls/hr Multivitamins/Minerals (Theragran/Minerals Tab*) 1 tab PO DAILY [facility] Last Admin: 02/16/18 08:48 Dose: 1 tab Omeprazole (Prilosec Cap*) 20 mg PO BID AC [facility] Last Admin: 02/16/18 08:48 Dose: 20 mg Oxycodone/Acetaminophen (Percocet 5/325 Tab*) 1 tab PO Q4H PRN PRN Reason: Pain Pharmacy Consult (Vancomycin Per Pharmacy*) 1 note FOLLOW UP . PRN PRN Reason: PER PROTOCOL Pharmacy Profile Note (Vancomycin Trough Check) 1 note FOLLOW UP 1630 ONE Stop: 02/16/18 16:31 Prednisone (Deltasone Tab*) 40 mg PO DAILY [facility] Tiotropium [place] (Spiriva Cap.Inh*) 1 cap INH DAILY [facility] Last Admin: 02/16/18 07:24 Dose: 1 cap Vital Signs - 8 hr 02/16/18 02/16/18 02/16/18 01:30 01:45 02:00 Temperature Pulse Rate 67 67 68 Respiratory 20 19 19 Rate Blood Pressure 95/60 117/58 97/54 (mmHg) O2 Sat by Pulse 99 98 98 Oximetry 02/16/18 02/16/18 02/16/18 02:15 02:31 03:00 Temperature Pulse Rate 70 82 83 Respiratory 19 21 18 Rate Blood Pressure 103/58 107/57 95/49 (mmHg) O2 Sat by Pulse 90 96 98 Oximetry 02/16/18 02/16/18 02/16/18 03:30 04:00 04:30 Temperature 99.1 F Pulse Rate 64 69 65 Respiratory 26 17 20 Rate Blood Pressure 101/54 106/56 98/48 (mmHg) O2 Sat by Pulse 96 97 98 Oximetry 02/16/18 02/16/18 02/16/18 05:00 05:01 05:37 Temperature Pulse Rate 68 64 73 Respiratory 24 21 16 Rate Blood Pressure 86/55 97/53 (mmHg) O2 Sat by Pulse 98 99 96 Oximetry 02/16/18 02/16/18 02/16/18 06:00 06:30 07:00 Temperature Pulse Rate 67 63 64 Respiratory 21 16 17 Rate Blood Pressure 107/59 97/59 97/59 (mmHg) O2 Sat by Pulse 97 98 97 Oximetry 02/16/18 02/16/18 02/16/18 07:01 07:30 07:32 Temperature Pulse Rate 66 63 70 Respiratory 17 20 22 Rate Blood Pressure 79/63 111/59 (mmHg) O2 Sat by Pulse 98 97 96 Oximetry 02/16/18 02/16/18 02/16/18 08:00 08:01 08:30 Temperature 98.9 F Pulse Rate 69 68 69 Respiratory 18 17 17 Rate Blood Pressure 97/56 100/57 (mmHg) O2 Sat by Pulse 95 96 95 Oximetry Oxygen Devices in Use Now: Nasal Cannula - 5L-96% Appearance: Elderly male sitting on the edge of the bed, NAD Eyes: No Scleral Icterus Ears/Nose/Mouth/Throat: Mucous Membranes Moist Respiratory: Symmetrical Chest Expansion and Respiratory Effort, - - diminished breath sounds throughout with fine crackles at KODI and LLL Cardiovascular: NL Sounds; No Murmurs; No JVD, RRR, No Edema Abdominal: NL Sounds; No Tenderness; No Distention Extremities: No Clubbing, Cyanosis Skin: No Nodules or Sclerosis Neurological: Alert and Oriented x 3 Result Diagrams: 02/16/18 05:00 02/16/18 05:35 Additional Lab and Data: Lab Results 02/15/18 02/15/18 02/15/18 Range/Units 14:55 14:55 14:55 WBC 14.6 H (3.5-10.8) 10^3/ul RBC 4.59 (4.0-5.4) 10^6/ul Hgb 13.5 L (14.0-18.0) g/dl Hct 41 L (42-52) % MCV 90 (80-94) fL MCH 30 (27-31) pg MCHC 33 (31-36) g/dl RDW 14 (10.5-15) % Plt Count 181 (150-450) 10^3/ul MPV 8.3 (7.4-10.4) um3 Neut % (Auto) 83.6 H (38-83) % Lymph % (Auto) 6.4 L (25-47) % [place] % (Auto) 9.5 H (0-7) % Eos % (Auto) 0 (0-6) % Baso % (Auto) 0.5 (0-2) % Absolute Neuts (auto) 12.2 H (1.5-7.7) 10^3/ul Absolute Lymphs (auto) 0.9 L (1.0-4.8) 10^3/ul Absolute Monos (auto) 1.4 H (0-0.8) 10^3/ul Absolute Eos (auto) 0 (0-0.6) 10^3/ul Absolute Basos (auto) 0.1 (0-0.2) 10^3/ul Absolute Nucleated RBC 0 10^3/ul Nucleated RBC % 0 INR (Anticoag Therapy) 1.33 H (0.77-1.02) Sodium 139 (139-145) mmol/L Potassium 3.9 (3.5-5.0) mmol/L Chloride 98 L (101-111) mmol/L Carbon Dioxide 36 H (22-32) mmol/L Anion Gap 5 (2-11) mmol/L BUN 12 (6-24) mg/dL Creatinine 0.61 L (0.67-1.17) mg/dL Est GFR ( Amer) 167.1 (>60) Est GFR (Non-Af Amer) 129.9 (>60) BUN/Creatinine Ratio 19.7 (8-20) Glucose 118 H (70-100) mg/dL Lactic Acid (0.5-2.0) mmol/L Calcium 9.2 (8.6-10.3) mg/dL Total Bilirubin 0.60 (0.2-1.0) mg/dL AST 34 (13-39) U/L ALT 98 H (7-52) U/L Alkaline Phosphatase 85 (34-104) U/L Troponin I 0.25 H* (<0.04) ng/mL C-Reactive Protein 136.97 H (< 5.00) mg/L B-Natriuretic Peptide ( - 100) pg/mL Total Protein 6.5 (6.4-8.9) g/dL Albumin 3.8 (3.2-5.2) g/dL Globulin 2.7 (2-4) g/dL Albumin/Globulin Ratio 1.4 (1-3) Procalcitonin (<0.6) ng/mL Digoxin (0.8-2.0) ng/ml 02/15/18 02/15/18 02/15/18 Range/Units 14:55 14:55 14:55 WBC (3.5-10.8) 10^3/ul RBC (4.0-5.4) 10^6/ul Hgb (14.0-18.0) g/dl Hct (42-52) % MCV (80-94) fL MCH (27-31) pg MCHC (31-36) g/dl RDW (10.5-15) % Plt Count (150-450) 10^3/ul MPV (7.4-10.4) um3 Neut % (Auto) (38-83) % Lymph % (Auto) (25-47) % [place] % (Auto) (0-7) % Eos % (Auto) (0-6) % Baso % (Auto) (0-2) % Absolute Neuts (auto) (1.5-7.7) 10^3/ul Absolute Lymphs (auto) (1.0-4.8) 10^3/ul Absolute Monos (auto) (0-0.8) 10^3/ul Absolute Eos (auto) (0-0.6) 10^3/ul Absolute Basos (auto) (0-0.2) 10^3/ul Absolute Nucleated RBC 10^3/ul Nucleated RBC % INR (Anticoag Therapy) (0.77-1.02) Sodium (139-145) mmol/L Potassium (3.5-5.0) mmol/L Chloride (101-111) mmol/L Carbon Dioxide (22-32) mmol/L Anion Gap (2-11) mmol/L BUN (6-24) mg/dL Creatinine (0.67-1.17) mg/dL Est GFR ( Amer) (>60) Est GFR (Non-Af Amer) (>60) BUN/Creatinine Ratio (8-20) Glucose (70-100) mg/dL Lactic Acid 0.8 (0.5-2.0) mmol/L Calcium (8.6-10.3) mg/dL Total Bilirubin (0.2-1.0) mg/dL AST (13-39) U/L ALT (7-52) U/L Alkaline Phosphatase (34-104) U/L Troponin I (<0.04) ng/mL C-Reactive Protein (< 5.00) mg/L B-Natriuretic Peptide 106 H ( - 100) pg/mL Total Protein (6.4-8.9) g/dL Albumin (3.2-5.2) g/dL Globulin (2-4) g/dL Albumin/Globulin Ratio (1-3) Procalcitonin 0.1 (<0.6) ng/mL Digoxin (0.8-2.0) ng/ml 02/15/18 Range/Units 14:55 WBC (3.5-10.8) 10^3/ul RBC (4.0-5.4) 10^6/ul Hgb (14.0-18.0) g/dl Hct (42-52) % MCV (80-94) fL MCH (27-31) pg MCHC (31-36) g/dl RDW (10.5-15) % Plt Count (150-450) 10^3/ul MPV (7.4-10.4) um3 Neut % (Auto) (38-83) % Lymph % (Auto) (25-47) % [place] % (Auto) (0-7) % Eos % (Auto) (0-6) % Baso % (Auto) (0-2) % Absolute Neuts (auto) (1.5-7.7) 10^3/ul Absolute Lymphs (auto) (1.0-4.8) 10^3/ul Absolute Monos (auto) (0-0.8) 10^3/ul Absolute Eos (auto) (0-0.6) 10^3/ul Absolute Basos (auto) (0-0.2) 10^3/ul Absolute Nucleated RBC 10^3/ul Nucleated RBC % INR (Anticoag Therapy) (0.77-1.02) Sodium (139-145) mmol/L Potassium (3.5-5.0) mmol/L Chloride (101-111) mmol/L Carbon Dioxide (22-32) mmol/L Anion Gap (2-11) mmol/L BUN (6-24) mg/dL Creatinine (0.67-1.17) mg/dL Est GFR ( Amer) (>60) Est GFR (Non-Af Amer) (>60) BUN/Creatinine Ratio (8-20) Glucose (70-100) mg/dL Lactic Acid (0.5-2.0) mmol/L Calcium (8.6-10.3) mg/dL Total Bilirubin (0.2-1.0) mg/dL AST (13-39) U/L ALT (7-52) U/L Alkaline Phosphatase (34-104) U/L Troponin I (<0.04) ng/mL C-Reactive Protein (< 5.00) mg/L B-Natriuretic Peptide ( - 100) pg/mL Total Protein (6.4-8.9) g/dL Albumin (3.2-5.2) g/dL Globulin (2-4) g/dL Albumin/Globulin Ratio (1-3) Procalcitonin (<0.6) ng/mL Digoxin 0.5 L (0.8-2.0) ng/ml Microbiology and Other Data: Microbiology 02/15/18 19:30 Gram Stain - Final Sputum Expectorated 02/15/18 18:45 Nasal Screen MRSA (PCR)(JAY) - Final Nasal Mrsa Not Detected 02/15/18 17:23 Influenza Types A,B Antigen (JAY) - Final Nasal Specimen received for Influenza A/B Molecular testing Assess/Plan/Problems-Billing Mr Espino is a 72 yo M who has a h/o afib s/p ablation 02/14/18 in [place] and O2 dependent severe COPD with chronic hypoxic respiratory failure who presented to the ER 1 day after his ablation with c/o fever and was found to be in rapid afib. - Patient Problems (1) Pneumonia Current Visit: Yes Status: Acute Code(s): J18.9 - PNEUMONIA, UNSPECIFIED ORGANISM SNOMED Code(s): 079060897 Comment: The patient was febrile with a moderate leukocytosis on admission. He is coughing up copious amounts of yellow sputum and has what appear to be infiltrates on his CTA. Despite the procalcitonin being negative will continue broad spectrum ABx. He was recently treated in 12/2017 with levaquin. Await sputum culture. (2) COPD (chronic obstructive pulmonary disease) Current Visit: Yes Status: Acute Code(s): J44.9 - CHRONIC OBSTRUCTIVE PULMONARY DISEASE, UNSPECIFIED SNOMED Code(s): 53439323 Comment: Slight exacerbation on admission. Seems somewhat better today. Will continue steroids but change to prednisone 40mg daily, nebs, spiriva and monitor symptoms. Wean down O2 to home setting. (3) Afib Current Visit: Yes Status: Acute Code(s): I48.91 - UNSPECIFIED ATRIAL FIBRILLATION SNOMED Code(s): 53640324 Comment: The patient underwent afib ablation 02/14/18. When he presented to the ER he was found to be in rapid afib. He converted to NSR overnight. Will convert back to cardizem CD 120mg daily (half his usual dose due to mild hypotension) and continue digoxin at home dose. Continue eliquis. He had a mildly elevated troponin on admission that was felt to be secondary to the ablation procedure. No further work up for the elevated trop at this time. (4) DVT prophylaxis Current Visit: Yes Status: Acute Code(s): XUR2994 - SNOMED Code(s): 242063267 Comment: Christen (5) Full code status Current Visit: Yes Status: Acute Code(s): Z78.9 - OTHER SPECIFIED HEALTH STATUS SNOMED Code(s): 361003526
[2018-02-16] MEDS: predniSONE TAB* 20 MG PO SCH (09:47)
[2018-02-16] MEDS: Albuterol 2.5 MG/3 ML NEB.SOL* (0.083%) INH PRN ×2 (12:15→21:25)
[2018-02-16] MEDS: Digoxin TAB* 0.125 MG PO SCH (15:53)
[2018-02-16] MEDS: Diltiazem CD CAP* 120 MG PO SCH (15:54)
[2018-02-16] MEDS ORDERED: Vancomycin Trough Check NOTE FOLLOW UP ONE (16:30)
[2018-02-16] MEDS: guaiFENesin ER TAB 600 MG PO SCH (20:42)
[2018-02-17] MEDS ORDERED: Metoprolol Tartrate IV* 1 MG/ML 5 ML VIAL IV PRN ×2 (01:11→02:00)
[2018-02-17] MEDS: Vancomycin(*) 1,000 MG in NS 0.9% 250 ML* 250 ML IVPB SCH ×3 (01:17→16:45)
[2018-02-17] MEDS: NS 0.9% 1000 ML* 1,000 ML IV SCH ×2 (03:15→23:33)
[2018-02-17 05:55] LABS: Hematocrit 36 % (42-52); Mean Corpuscular HGB Conc 33 g/dl (31-36); Mean Corpuscular Hemoglobin 30 pg (27-31); Mean Corpuscular Volume 90 fL (80-94); Mean Platelet Volume 8.4 um3 (7.4-10.4); Platelet Count 168 10^3/ul (150-450); Red Blood Count 3.99 10^6/ul (4.0-5.4); Red Cell Distribution Width 14 % (10.5-15); White Blood Count 9.9 10^3/ul (3.5-10.8)
[2018-02-17 06:13] LABS: EGFR Non-African American 143.4 (>60)
[2018-02-17] MEDS: Cefepime 1 GM in Dextrose(*) 1 GM/50 ML BAG IV SCH ×2 (07:04→18:45)
[2018-02-17] MEDS: Omeprazole CAP* 20 MG PO SCH ×2 (07:35→16:42)
[2018-02-17] MEDS: Albuterol 2.5 MG/3 ML NEB.SOL* (0.083%) INH PRN ×2 (08:25→20:25)
[2018-02-17] MEDS: Tiotropium CAP.INH* CAP.INH/18 MCG (USE ORDER SET !) INH SCH (08:46)
[2018-02-17] MEDS: Multivitamins/Minerals TAB PO SCH (09:55)
[2018-02-17] MEDS: Dronedarone TAB* 400 MG PO SCH ×2 (09:55→20:20)
[2018-02-17] MEDS: Cholecalciferol TAB* 1000 UNITS PO SCH (09:55)
[2018-02-17] MEDS: Aspirin EC TAB* 81 MG TAB.EC PO SCH (09:55)
[2018-02-17] MEDS: predniSONE TAB* 20 MG PO SCH (09:55)
[2018-02-17] MEDS: Diltiazem CD CAP* 120 MG PO SCH (09:55)
[2018-02-17] MEDS: Docusate CAP* 100 MG PO SCH ×2 (09:55→20:20)
[2018-02-17] MEDS: guaiFENesin ER TAB 600 MG PO SCH ×2 (09:56→20:19)
[2018-02-17] MEDS: Apixaban* 5 MG TAB PO SCH ×2 (09:56→20:19)
--- NOTE | 2018-02-17 12:14 | PN ---
Subjective Date of Service: 02/17/18 Interval History: Pt is feeling ok. He is still more SOB than usual with minimal exertion. He continues to cough up copious amounts of thick yellow sputum. His states the sputum has been similar to this for the last 1 month or so. Objective Active Medications: Acetaminophen (Tylenol Tab*) 650 mg PO Q4H PRN PRN Reason: FEVER/PAIN Albuterol (Ventolin 2.5 Mg/3 Ml Neb.Veronika*) 2.5 mg INH Q6H PRN PRN Reason: SOB/WHEEZING Last Admin: 02/17/18 08:25 Dose: 2.5 mg Albuterol (Ventolin Hfa Inhaler*) 2 puff INH Q4H PRN PRN Reason: SOB/WHEEZING Last Admin: 02/16/18 07:26 Dose: 2 puff Apixaban (Eliquis*) 5 mg PO BID [facility] Last Admin: 02/17/18 09:56 Dose: 5 mg Aspirin (Aspirin Ec Tab*) 81 mg PO DAILY [facility] Last Admin: 02/17/18 09:55 Dose: 81 mg Cholecalciferol (Vitamin D Tab*) 1,000 units PO DAILY [facility] Last Admin: 02/17/18 09:55 Dose: 1,000 units Digoxin (Lanoxin Tab*) 0.0625 mg PO DAILY@1700 [facility] Last Admin: 02/16/18 15:53 Dose: 0.0625 mg Diltiazem HCl (Cardizem Cd Cap*) 120 mg PO DAILY [facility] Last Admin: 02/17/18 09:55 Dose: 120 mg Docusate Sodium (Colace Cap*) 100 mg PO BID [facility] Last Admin: 02/17/18 09:55 Dose: 100 mg Dronedarone (Multaq Tab*) 400 mg PO BID [facility] Last Admin: 02/17/18 09:55 Dose: 400 mg Guaifenesin (Mucinex*) 600 mg PO BID [facility] Last Admin: 02/17/18 09:56 Dose: 600 mg Sodium Chloride (Ns 0.9% 1000 Ml*) 1,000 mls @ 75 mls/hr IV PER RATE [facility] Last Admin: 02/17/18 03:15 Dose: 75 mls/hr Cefepime HCl (Maxipime 1 Gm In Dextrose Duplex (*)) 1 gm in 50 mls @ 100 mls/ hr IV Q12H [facility] Last Admin: 02/17/18 07:04 Dose: 100 mls/hr Vancomycin HCl 1,000 mg/ (Sodium Chloride) 250 mls @ 166.667 mls/hr IVPB Q8H [facility] Last Admin: 02/17/18 09:47 Dose: 166.667 mls/hr Metoprolol Tartrate (Lopressor Iv*) 5 mg IV Q2H PRN PRN Reason: TACHYCARDIA Mometasone Furoate/Formoterol Fumar (Dulera 200/5 Mdi*) 2 puff INH BID [facility] Multivitamins/Minerals (Theragran/Minerals Tab*) 1 tab PO DAILY [facility] Last Admin: 02/17/18 09:55 Dose: 1 tab Omeprazole (Prilosec Cap*) 20 mg PO BID [facility] Last Admin: 02/17/18 07:35 Dose: 20 mg Oxycodone/Acetaminophen (Percocet 5/325 Tab*) 1 tab PO Q4H PRN PRN Reason: Pain Pharmacy Consult (Vancomycin Per Pharmacy*) 1 note FOLLOW UP . PRN PRN Reason: PER PROTOCOL Prednisone (Deltasone Tab*) 40 mg PO DAILY [facility] Last Admin: 02/17/18 09:55 Dose: 40 mg Tiotropium [place] (Spiriva Cap.Inh*) 1 cap INH DAILY [facility] Last Admin: 02/17/18 08:46 Dose: 1 cap Vital Signs - 8 hr 02/17/18 02/17/18 02/17/18 08:00 08:18 08:26 Temperature 99.1 F Pulse Rate 113 111 Respiratory 20 20 19 Rate Blood Pressure 95/61 (mmHg) O2 Sat by Pulse 96 97 Oximetry 02/17/18 10:09 Temperature Pulse Rate Respiratory Rate Blood Pressure 98/64 (mmHg) O2 Sat by Pulse Oximetry Oxygen Devices in Use Now: Nasal Cannula - 3L Appearance: Elderly male lying in bed, NAD Eyes: No Scleral Icterus Ears/Nose/Mouth/Throat: Mucous Membranes Moist Respiratory: Symmetrical Chest Expansion and Respiratory Effort, Clear to Auscultation - markedly diminished breath sounds in all lung bender Cardiovascular: NL Sounds; No Murmurs; No JVD, No Edema, - - irregularly irregular, mildly tachycardic Abdominal: NL Sounds; No Tenderness; No Distention Extremities: No Clubbing, Cyanosis Skin: No Nodules or Sclerosis Neurological: Alert and Oriented x 3 Result Diagrams: 02/17/18 05:37 02/17/18 05:37 Additional Lab and Data: Lab Results 02/15/18 02/15/18 02/15/18 Range/Units 14:55 14:55 14:55 WBC 14.6 H (3.5-10.8) 10^3/ul RBC 4.59 (4.0-5.4) 10^6/ul Hgb 13.5 L (14.0-18.0) g/dl Hct 41 L (42-52) % MCV 90 (80-94) fL MCH 30 (27-31) pg MCHC 33 (31-36) g/dl RDW 14 (10.5-15) % Plt Count 181 (150-450) 10^3/ul MPV 8.3 (7.4-10.4) um3 Neut % (Auto) 83.6 H (38-83) % Lymph % (Auto) 6.4 L (25-47) % [place] % (Auto) 9.5 H (0-7) % Eos % (Auto) 0 (0-6) % Baso % (Auto) 0.5 (0-2) % Absolute Neuts (auto) 12.2 H (1.5-7.7) 10^3/ul Absolute Lymphs (auto) 0.9 L (1.0-4.8) 10^3/ul Absolute Monos (auto) 1.4 H (0-0.8) 10^3/ul Absolute Eos (auto) 0 (0-0.6) 10^3/ul Absolute Basos (auto) 0.1 (0-0.2) 10^3/ul Absolute Nucleated RBC 0 10^3/ul Nucleated RBC % 0 INR (Anticoag Therapy) 1.33 H (0.77-1.02) Sodium 139 (139-145) mmol/L Potassium 3.9 (3.5-5.0) mmol/L Chloride 98 L (101-111) mmol/L Carbon Dioxide 36 H (22-32) mmol/L Anion Gap 5 (2-11) mmol/L BUN 12 (6-24) mg/dL Creatinine 0.61 L (0.67-1.17) mg/dL Est GFR ( Amer) 167.1 (>60) Est GFR (Non-Af Amer) 129.9 (>60) BUN/Creatinine Ratio 19.7 (8-20) Glucose 118 H (70-100) mg/dL Lactic Acid (0.5-2.0) mmol/L Calcium 9.2 (8.6-10.3) mg/dL Total Bilirubin 0.60 (0.2-1.0) mg/dL AST 34 (13-39) U/L ALT 98 H (7-52) U/L Alkaline Phosphatase 85 (34-104) U/L Troponin I 0.25 H* (<0.04) ng/mL C-Reactive Protein 136.97 H (< 5.00) mg/L B-Natriuretic Peptide ( - 100) pg/mL Total Protein 6.5 (6.4-8.9) g/dL Albumin 3.8 (3.2-5.2) g/dL Globulin 2.7 (2-4) g/dL Albumin/Globulin Ratio 1.4 (1-3) Procalcitonin (<0.6) ng/mL Digoxin (0.8-2.0) ng/ml 02/15/18 02/15/18 02/15/18 Range/Units 14:55 14:55 14:55 WBC (3.5-10.8) 10^3/ul RBC (4.0-5.4) 10^6/ul Hgb (14.0-18.0) g/dl Hct (42-52) % MCV (80-94) fL MCH (27-31) pg MCHC (31-36) g/dl RDW (10.5-15) % Plt Count (150-450) 10^3/ul MPV (7.4-10.4) um3 Neut % (Auto) (38-83) % Lymph % (Auto) (25-47) % [place] % (Auto) (0-7) % Eos % (Auto) (0-6) % Baso % (Auto) (0-2) % Absolute Neuts (auto) (1.5-7.7) 10^3/ul Absolute Lymphs (auto) (1.0-4.8) 10^3/ul Absolute Monos (auto) (0-0.8) 10^3/ul Absolute Eos (auto) (0-0.6) 10^3/ul Absolute Basos (auto) (0-0.2) 10^3/ul Absolute Nucleated RBC 10^3/ul Nucleated RBC % INR (Anticoag Therapy) (0.77-1.02) Sodium (139-145) mmol/L Potassium (3.5-5.0) mmol/L Chloride (101-111) mmol/L Carbon Dioxide (22-32) mmol/L Anion Gap (2-11) mmol/L BUN (6-24) mg/dL Creatinine (0.67-1.17) mg/dL Est GFR ( Amer) (>60) Est GFR (Non-Af Amer) (>60) BUN/Creatinine Ratio (8-20) Glucose (70-100) mg/dL Lactic Acid 0.8 (0.5-2.0) mmol/L Calcium (8.6-10.3) mg/dL Total Bilirubin (0.2-1.0) mg/dL AST (13-39) U/L ALT (7-52) U/L Alkaline Phosphatase (34-104) U/L Troponin I (<0.04) ng/mL C-Reactive Protein (< 5.00) mg/L B-Natriuretic Peptide 106 H ( - 100) pg/mL Total Protein (6.4-8.9) g/dL Albumin (3.2-5.2) g/dL Globulin (2-4) g/dL Albumin/Globulin Ratio (1-3) Procalcitonin 0.1 (<0.6) ng/mL Digoxin (0.8-2.0) ng/ml 02/15/18 Range/Units 14:55 WBC (3.5-10.8) 10^3/ul RBC (4.0-5.4) 10^6/ul Hgb (14.0-18.0) g/dl Hct (42-52) % MCV (80-94) fL MCH (27-31) pg MCHC (31-36) g/dl RDW (10.5-15) % Plt Count (150-450) 10^3/ul MPV (7.4-10.4) um3 Neut % (Auto) (38-83) % Lymph % (Auto) (25-47) % [place] % (Auto) (0-7) % Eos % (Auto) (0-6) % Baso % (Auto) (0-2) % Absolute Neuts (auto) (1.5-7.7) 10^3/ul Absolute Lymphs (auto) (1.0-4.8) 10^3/ul Absolute Monos (auto) (0-0.8) 10^3/ul Absolute Eos (auto) (0-0.6) 10^3/ul Absolute Basos (auto) (0-0.2) 10^3/ul Absolute Nucleated RBC 10^3/ul Nucleated RBC % INR (Anticoag Therapy) (0.77-1.02) Sodium (139-145) mmol/L Potassium (3.5-5.0) mmol/L Chloride (101-111) mmol/L Carbon Dioxide (22-32) mmol/L Anion Gap (2-11) mmol/L BUN (6-24) mg/dL Creatinine (0.67-1.17) mg/dL Est GFR ( Amer) (>60) Est GFR (Non-Af Amer) (>60) BUN/Creatinine Ratio (8-20) Glucose (70-100) mg/dL Lactic Acid (0.5-2.0) mmol/L Calcium (8.6-10.3) mg/dL Total Bilirubin (0.2-1.0) mg/dL AST (13-39) U/L ALT (7-52) U/L Alkaline Phosphatase (34-104) U/L Troponin I (<0.04) ng/mL C-Reactive Protein (< 5.00) mg/L B-Natriuretic Peptide ( - 100) pg/mL Total Protein (6.4-8.9) g/dL Albumin (3.2-5.2) g/dL Globulin (2-4) g/dL Albumin/Globulin Ratio (1-3) Procalcitonin (<0.6) ng/mL Digoxin 0.5 L (0.8-2.0) ng/ml Microbiology and Other Data: Microbiology 02/15/18 19:30 Gram Stain - Final Sputum Expectorated 02/15/18 18:45 Nasal Screen MRSA (PCR)(JAY) - Final Nasal Mrsa Not Detected 02/15/18 17:23 Influenza Types A,B Antigen (JAY) - Final Nasal Specimen received for Influenza A/B Molecular testing Assess/Plan/Problems-Billing Mr Espino is a 72 yo M who has a h/o afib s/p ablation 02/14/18 in [place] and O2 dependent severe COPD with chronic hypoxic respiratory failure who presented to the ER 1 day after his ablation with c/o fever and was found to be in rapid afib. - Patient Problems (1) Pneumonia Current Visit: Yes Status: Acute Code(s): J18.9 - PNEUMONIA, UNSPECIFIED ORGANISM SNOMED Code(s): 447125903 Comment: The patient was febrile with a moderate leukocytosis on admission. He is still coughing up copious amounts of yellow sputum and has what appear to be infiltrates on his CTA. Will continue vanco and cefepime. Will keep overnight again tonight and if feeling improved tomorrow possible d/c home on broad spectrum oral Abx. (2) COPD (chronic obstructive pulmonary disease) Current Visit: Yes Status: Acute Code(s): J44.9 - CHRONIC OBSTRUCTIVE PULMONARY DISEASE, UNSPECIFIED SNOMED Code(s): 23040424 Comment: Slight exacerbation on admission now resolved. Continue prednisone 40mg daily. Continue nebs, spiriva. (3) Afib Current Visit: Yes Status: Acute Code(s): I48.91 - UNSPECIFIED ATRIAL FIBRILLATION SNOMED Code(s): 93938464 Comment: Pt is back in afib today. HR is fairly well controlled. Will continue digoxin, cardizem CD and eliquis. (4) DVT prophylaxis Current Visit: Yes Status: Acute Code(s): BGT3320 - SNOMED Code(s): 291570731 Comment: Christen (5) Full code status Current Visit: Yes Status: Acute Code(s): Z78.9 - OTHER SPECIFIED HEALTH STATUS SNOMED Code(s): 150893588
[2018-02-17] MEDS: Albuterol HFA INHALER* 8 gm MDI INH PRN (13:33)
[2018-02-17] MEDS: Mometasone/Formoter 200/5 MDI INH SCH ×2 (13:37→20:25)
[2018-02-17] MEDS: Digoxin TAB* 0.125 MG PO SCH (16:43)
[2018-02-18] MEDS: Vancomycin(*) 1,000 MG in NS 0.9% 250 ML* 250 ML IVPB SCH ×3 (01:15→16:53)
[2018-02-18] MEDS: Cefepime 1 GM in Dextrose(*) 1 GM/50 ML BAG IV SCH ×2 (06:07→18:51)
[2018-02-18] MEDS: Albuterol 2.5 MG/3 ML NEB.SOL* (0.083%) INH PRN ×2 (08:09→16:23)
[2018-02-18] MEDS: Mometasone/Formoter 200/5 MDI INH SCH ×2 (08:11→19:58)
[2018-02-18] MEDS: Tiotropium CAP.INH* CAP.INH/18 MCG (USE ORDER SET !) INH SCH (08:12)
[2018-02-18] MEDS: Omeprazole CAP* 20 MG PO SCH ×2 (09:44→16:51)
[2018-02-18] MEDS: predniSONE TAB* 20 MG PO SCH (09:44)
[2018-02-18] MEDS: Apixaban* 5 MG TAB PO SCH ×2 (09:44→19:48)
[2018-02-18] MEDS: Docusate CAP* 100 MG PO SCH ×2 (09:44→19:48)
[2018-02-18] MEDS: Aspirin EC TAB* 81 MG TAB.EC PO SCH (09:44)
[2018-02-18] MEDS: Cholecalciferol TAB* 1000 UNITS PO SCH (09:44)
[2018-02-18] MEDS: Dronedarone TAB* 400 MG PO SCH ×2 (09:45→19:48)
[2018-02-18] MEDS: Multivitamins/Minerals TAB PO SCH (09:45)
[2018-02-18] MEDS: Diltiazem CD CAP* 120 MG PO SCH (09:46)
[2018-02-18] MEDS: guaiFENesin ER TAB 600 MG PO SCH ×2 (09:46→19:48)
--- NOTE | 2018-02-18 12:01 | PN ---
Subjective Date of Service: 02/18/18 Interval History: Pt is feeling ok. His thinks he is improving as he has been more animated in his interactions with staff. He states since his last respiratory illness in 12/2017 he never full recovered. He thinks he is coughing up less sputum and it is less yellow. He SOB is better but he states he has not been as active as he usually is at home. Objective Active Medications: Acetaminophen (Tylenol Tab*) 650 mg PO Q4H PRN PRN Reason: FEVER/PAIN Albuterol (Ventolin 2.5 Mg/3 Ml Neb.Veronika*) 2.5 mg INH Q6H PRN PRN Reason: SOB/WHEEZING Last Admin: 02/18/18 08:09 Dose: 2.5 mg Albuterol (Ventolin Hfa Inhaler*) 2 puff INH Q4H PRN PRN Reason: SOB/WHEEZING Last Admin: 02/17/18 13:33 Dose: 2 puff Apixaban (Eliquis*) 5 mg PO BID [facility] Last Admin: 02/18/18 09:44 Dose: 5 mg Aspirin (Aspirin Ec Tab*) 81 mg PO DAILY [facility] Last Admin: 02/18/18 09:44 Dose: 81 mg Cholecalciferol (Vitamin D Tab*) 1,000 units PO DAILY [facility] Last Admin: 02/18/18 09:44 Dose: 1,000 units Digoxin (Lanoxin Tab*) 0.0625 mg PO DAILY@1700 [facility] Last Admin: 02/17/18 16:43 Dose: 0.0625 mg Diltiazem HCl (Cardizem Cd Cap*) 120 mg PO DAILY [facility] Last Admin: 02/18/18 09:46 Dose: 120 mg Docusate Sodium (Colace Cap*) 100 mg PO BID [facility] Last Admin: 02/18/18 09:44 Dose: 100 mg Dronedarone (Multaq Tab*) 400 mg PO BID [facility] Last Admin: 02/18/18 09:45 Dose: 400 mg Guaifenesin (Mucinex*) 600 mg PO BID [facility] Last Admin: 02/18/18 09:46 Dose: 600 mg Sodium Chloride (Ns 0.9% 1000 Ml*) 1,000 mls @ 75 mls/hr IV PER RATE [facility] Last Admin: 02/17/18 23:33 Dose: 75 mls/hr Cefepime HCl (Maxipime 1 Gm In Dextrose Duplex (*)) 1 gm in 50 mls @ 100 mls/ hr IV Q12H [facility] Last Admin: 02/18/18 06:07 Dose: 100 mls/hr Vancomycin HCl 1,000 mg/ (Sodium Chloride) 250 mls @ 166.667 mls/hr IVPB Q8H [facility] Last Admin: 02/18/18 09:44 Dose: 166.667 mls/hr Metoprolol Tartrate (Lopressor Iv*) 5 mg IV Q2H PRN PRN Reason: TACHYCARDIA Last Admin: 02/17/18 21:21 Dose: 5 mg Mometasone Furoate/Formoterol Fumar (Dulera 200/5 Mdi*) 2 puff INH BID [facility] Last Admin: 02/18/18 08:11 Dose: 2 puff Multivitamins/Minerals (Theragran/Minerals Tab*) 1 tab PO DAILY [facility] Last Admin: 02/18/18 09:45 Dose: 1 tab Omeprazole (Prilosec Cap*) 20 mg PO BID AC [facility] Last Admin: 02/18/18 09:44 Dose: 20 mg Oxycodone/Acetaminophen (Percocet 5/325 Tab*) 1 tab PO Q4H PRN PRN Reason: Pain Pharmacy Consult (Vancomycin Per Pharmacy*) 1 note FOLLOW UP . PRN PRN Reason: PER PROTOCOL Pharmacy Profile Note (Vancomycin Trough Check) 1 note FOLLOW UP 0830 ONE Stop: 02/19/18 08:31 Prednisone (Deltasone Tab*) 40 mg PO DAILY [facility] Last Admin: 02/18/18 09:44 Dose: 40 mg Tiotropium [place] (Spiriva Cap.Inh*) 1 cap INH DAILY [facility] Last Admin: 02/18/18 08:12 Dose: 1 cap Vital Signs - 8 hr 02/18/18 02/18/18 02/18/18 04:20 07:27 08:13 Temperature 97.7 F 99.0 F Pulse Rate 74 72 76 Respiratory 20 18 16 Rate Blood Pressure 113/58 118/63 (mmHg) O2 Sat by Pulse 99 98 98 Oximetry Oxygen Devices in Use Now: Nasal Cannula - 3L-98% Appearance: Elderly male sitting in a chair, NAD Eyes: No Scleral Icterus Ears/Nose/Mouth/Throat: Mucous Membranes Moist Respiratory: Symmetrical Chest Expansion and Respiratory Effort, Clear to Auscultation - markedly diminished breath sounds in all lung bender Cardiovascular: NL Sounds; No Murmurs; No JVD, RRR, No Edema Abdominal: NL Sounds; No Tenderness; No Distention Extremities: No Clubbing, Cyanosis Skin: No Nodules or Sclerosis, - - marked bruising on arms Neurological: Alert and Oriented x 3 Result Diagrams: 02/17/18 05:37 02/17/18 05:37 Additional Lab and Data: Lab Results 02/15/18 02/15/18 02/15/18 Range/Units 14:55 14:55 14:55 WBC 14.6 H (3.5-10.8) 10^3/ul RBC 4.59 (4.0-5.4) 10^6/ul Hgb 13.5 L (14.0-18.0) g/dl Hct 41 L (42-52) % MCV 90 (80-94) fL MCH 30 (27-31) pg MCHC 33 (31-36) g/dl RDW 14 (10.5-15) % Plt Count 181 (150-450) 10^3/ul MPV 8.3 (7.4-10.4) um3 Neut % (Auto) 83.6 H (38-83) % Lymph % (Auto) 6.4 L (25-47) % [place] % (Auto) 9.5 H (0-7) % Eos % (Auto) 0 (0-6) % Baso % (Auto) 0.5 (0-2) % Absolute Neuts (auto) 12.2 H (1.5-7.7) 10^3/ul Absolute Lymphs (auto) 0.9 L (1.0-4.8) 10^3/ul Absolute Monos (auto) 1.4 H (0-0.8) 10^3/ul Absolute Eos (auto) 0 (0-0.6) 10^3/ul Absolute Basos (auto) 0.1 (0-0.2) 10^3/ul Absolute Nucleated RBC 0 10^3/ul Nucleated RBC % 0 INR (Anticoag Therapy) 1.33 H (0.77-1.02) Sodium 139 (139-145) mmol/L Potassium 3.9 (3.5-5.0) mmol/L Chloride 98 L (101-111) mmol/L Carbon Dioxide 36 H (22-32) mmol/L Anion Gap 5 (2-11) mmol/L BUN 12 (6-24) mg/dL Creatinine 0.61 L (0.67-1.17) mg/dL Est GFR ( Amer) 167.1 (>60) Est GFR (Non-Af Amer) 129.9 (>60) BUN/Creatinine Ratio 19.7 (8-20) Glucose 118 H (70-100) mg/dL Lactic Acid (0.5-2.0) mmol/L Calcium 9.2 (8.6-10.3) mg/dL Total Bilirubin 0.60 (0.2-1.0) mg/dL AST 34 (13-39) U/L ALT 98 H (7-52) U/L Alkaline Phosphatase 85 (34-104) U/L Troponin I 0.25 H* (<0.04) ng/mL C-Reactive Protein 136.97 H (< 5.00) mg/L B-Natriuretic Peptide ( - 100) pg/mL Total Protein 6.5 (6.4-8.9) g/dL Albumin 3.8 (3.2-5.2) g/dL Globulin 2.7 (2-4) g/dL Albumin/Globulin Ratio 1.4 (1-3) Procalcitonin (<0.6) ng/mL Digoxin (0.8-2.0) ng/ml 02/15/18 02/15/18 02/15/18 Range/Units 14:55 14:55 14:55 WBC (3.5-10.8) 10^3/ul RBC (4.0-5.4) 10^6/ul Hgb (14.0-18.0) g/dl Hct (42-52) % MCV (80-94) fL MCH (27-31) pg MCHC (31-36) g/dl RDW (10.5-15) % Plt Count (150-450) 10^3/ul MPV (7.4-10.4) um3 Neut % (Auto) (38-83) % Lymph % (Auto) (25-47) % [place] % (Auto) (0-7) % Eos % (Auto) (0-6) % Baso % (Auto) (0-2) % Absolute Neuts (auto) (1.5-7.7) 10^3/ul Absolute Lymphs (auto) (1.0-4.8) 10^3/ul Absolute Monos (auto) (0-0.8) 10^3/ul Absolute Eos (auto) (0-0.6) 10^3/ul Absolute Basos (auto) (0-0.2) 10^3/ul Absolute Nucleated RBC 10^3/ul Nucleated RBC % INR (Anticoag Therapy) (0.77-1.02) Sodium (139-145) mmol/L Potassium (3.5-5.0) mmol/L Chloride (101-111) mmol/L Carbon Dioxide (22-32) mmol/L Anion Gap (2-11) mmol/L BUN (6-24) mg/dL Creatinine (0.67-1.17) mg/dL Est GFR ( Amer) (>60) Est GFR (Non-Af Amer) (>60) BUN/Creatinine Ratio (8-20) Glucose (70-100) mg/dL Lactic Acid 0.8 (0.5-2.0) mmol/L Calcium (8.6-10.3) mg/dL Total Bilirubin (0.2-1.0) mg/dL AST (13-39) U/L ALT (7-52) U/L Alkaline Phosphatase (34-104) U/L Troponin I (<0.04) ng/mL C-Reactive Protein (< 5.00) mg/L B-Natriuretic Peptide 106 H ( - 100) pg/mL Total Protein (6.4-8.9) g/dL Albumin (3.2-5.2) g/dL Globulin (2-4) g/dL Albumin/Globulin Ratio (1-3) Procalcitonin 0.1 (<0.6) ng/mL Digoxin (0.8-2.0) ng/ml 02/15/18 Range/Units 14:55 WBC (3.5-10.8) 10^3/ul RBC (4.0-5.4) 10^6/ul Hgb (14.0-18.0) g/dl Hct (42-52) % MCV (80-94) fL MCH (27-31) pg MCHC (31-36) g/dl RDW (10.5-15) % Plt Count (150-450) 10^3/ul MPV (7.4-10.4) um3 Neut % (Auto) (38-83) % Lymph % (Auto) (25-47) % [place] % (Auto) (0-7) % Eos % (Auto) (0-6) % Baso % (Auto) (0-2) % Absolute Neuts (auto) (1.5-7.7) 10^3/ul Absolute Lymphs (auto) (1.0-4.8) 10^3/ul Absolute Monos (auto) (0-0.8) 10^3/ul Absolute Eos (auto) (0-0.6) 10^3/ul Absolute Basos (auto) (0-0.2) 10^3/ul Absolute Nucleated RBC 10^3/ul Nucleated RBC % INR (Anticoag Therapy) (0.77-1.02) Sodium (139-145) mmol/L Potassium (3.5-5.0) mmol/L Chloride (101-111) mmol/L Carbon Dioxide (22-32) mmol/L Anion Gap (2-11) mmol/L BUN (6-24) mg/dL Creatinine (0.67-1.17) mg/dL Est GFR ( Amer) (>60) Est GFR (Non-Af Amer) (>60) BUN/Creatinine Ratio (8-20) Glucose (70-100) mg/dL Lactic Acid (0.5-2.0) mmol/L Calcium (8.6-10.3) mg/dL Total Bilirubin (0.2-1.0) mg/dL AST (13-39) U/L ALT (7-52) U/L Alkaline Phosphatase (34-104) U/L Troponin I (<0.04) ng/mL C-Reactive Protein (< 5.00) mg/L B-Natriuretic Peptide ( - 100) pg/mL Total Protein (6.4-8.9) g/dL Albumin (3.2-5.2) g/dL Globulin (2-4) g/dL Albumin/Globulin Ratio (1-3) Procalcitonin (<0.6) ng/mL Digoxin 0.5 L (0.8-2.0) ng/ml Microbiology and Other Data: Microbiology 02/15/18 19:30 Gram Stain - Final Sputum Expectorated 02/15/18 18:45 Nasal Screen MRSA (PCR)(JAY) - Final Nasal Mrsa Not Detected 02/15/18 17:23 Influenza Types A,B Antigen (JAY) - Final Nasal Specimen received for Influenza A/B Molecular testing Assess/Plan/Problems-Billing Mr Espino is a 72 yo M who has a h/o afib s/p ablation 02/14/18 in [place] and O2 dependent severe COPD with chronic hypoxic respiratory failure who presented to the ER 1 day after his ablation with c/o fever and was found to be in rapid afib. - Patient Problems (1) Pneumonia Current Visit: Yes Status: Acute Code(s): J18.9 - PNEUMONIA, UNSPECIFIED ORGANISM SNOMED Code(s): 103702306 Comment: Will continue cefepime but stop vancomycin after today's doses. ID consult tomorrow as pt describes never fully recovering from respiratory illnesses. ? need for prolonged Abx course. Repeat CBC and CRP tomorrow. (2) COPD (chronic obstructive pulmonary disease) Current Visit: Yes Status: Acute Code(s): J44.9 - CHRONIC OBSTRUCTIVE PULMONARY DISEASE, UNSPECIFIED SNOMED Code(s): 86452697 Comment: Slight exacerbation on admission now resolved. Continue prednisone 40mg daily with very slow taper (10mg/week) to try to prevent rebound SOB/ inflammation. Continue nebs, spiriva. (3) Afib Current Visit: Yes Status: Acute Code(s): I48.91 - UNSPECIFIED ATRIAL FIBRILLATION SNOMED Code(s): 84867759 Comment: Pt continues to flip in and out of afib. His HR is not controlled at this time. WIll add low dose metoprolol 12.5mg BID as he seemed to respond well to the metoprolol dosing last evening. (4) DVT prophylaxis Current Visit: Yes Status: Acute Code(s): UMO1418 - SNOMED Code(s): 894296626 Comment: Christen (5) Full code status Current Visit: Yes Status: Acute Code(s): Z78.9 - OTHER SPECIFIED HEALTH STATUS SNOMED Code(s): 526396210
[2018-02-18] MEDS: Metoprolol Tartrate TAB* 25 MG PO SCH ×2 (12:40→19:49)
[2018-02-18] MEDS: Digoxin TAB* 0.125 MG PO SCH (16:51)
[2018-02-18] MEDS: NS 0.9% 1000 ML* 1,000 ML IV SCH (19:42)
[2018-02-19] MEDS: Cefepime 1 GM in Dextrose(*) 1 GM/50 ML BAG IV SCH (05:56)
[2018-02-19 06:39] LABS: EGFR Non-African American 167.3 (>60)
[2018-02-19 07:00] LABS: Hematocrit 34 % (42-52); Hemoglobin 11.2 g/dl (14.0-18.0); Mean Corpuscular HGB Conc 33 g/dl (31-36); Mean Corpuscular Hemoglobin 30 pg (27-31); Mean Corpuscular Volume 91 fL (80-94); Mean Platelet Volume 8.3 um3 (7.4-10.4); Platelet Count 192 10^3/ul (150-450); Red Blood Count 3.75 10^6/ul (4.0-5.4); Red Cell Distribution Width 14 % (10.5-15); White Blood Count 8.4 10^3/ul (3.5-10.8)
[2018-02-19] MEDS: Tiotropium CAP.INH* CAP.INH/18 MCG (USE ORDER SET !) INH SCH (07:55)
[2018-02-19] MEDS: Mometasone/Formoter 200/5 MDI INH SCH ×2 (07:55→21:24)
[2018-02-19] MEDS: Omeprazole CAP* 20 MG PO SCH ×2 (08:00→17:05)
[2018-02-19] MEDS: Diltiazem CD CAP* 120 MG PO SCH (08:00)
[2018-02-19] MEDS: Multivitamins/Minerals TAB PO SCH (08:00)
[2018-02-19] MEDS: Docusate CAP* 100 MG PO SCH ×2 (08:00→19:32)
[2018-02-19] MEDS: guaiFENesin ER TAB 600 MG PO SCH ×2 (08:01→19:32)
[2018-02-19] MEDS: Aspirin EC TAB* 81 MG TAB.EC PO SCH (08:01)
[2018-02-19] MEDS: Dronedarone TAB* 400 MG PO SCH ×2 (08:01→19:32)
[2018-02-19] MEDS: Metoprolol Tartrate TAB* 25 MG PO SCH ×2 (08:01→19:32)
[2018-02-19] MEDS: predniSONE TAB* 20 MG PO SCH (08:02)
[2018-02-19] MEDS: Cholecalciferol TAB* 1000 UNITS PO SCH (08:02)
[2018-02-19] MEDS: Apixaban* 5 MG TAB PO SCH ×2 (08:04→19:31)
[2018-02-19] MEDS: Albuterol 2.5 MG/3 ML NEB.SOL* (0.083%) INH PRN ×3 (08:09→18:19)
[2018-02-19] MEDS ORDERED: Vancomycin Trough Check NOTE FOLLOW UP ONE (08:30)
[2018-02-19] MEDS ORDERED: Metoprolol Tartrate IV* 1 MG/ML 5 ML VIAL IV PRN (08:36)
[2018-02-19] MEDS ORDERED: Digoxin IV* 0.5 MG/2 ML AMP (0.25 MG/ML) IV ONE (08:37)
[2018-02-19] MEDS: NS 0.9% 1000 ML* 1,000 ML IV SCH (09:40)
--- NOTE | 2018-02-19 13:02 | PN ---
Subjective Date of Service: 02/19/18 Interval History: Pt had been in and out of a.fib with HR 120-130, asymptomatic Objective Active Medications: Acetaminophen (Tylenol Tab*) 650 mg PO Q4H PRN PRN Reason: FEVER/PAIN Albuterol (Ventolin 2.5 Mg/3 Ml Neb.Veronika*) 2.5 mg INH Q6H PRN PRN Reason: SOB/WHEEZING Last Admin: 02/19/18 08:09 Dose: 2.5 mg Albuterol (Ventolin Hfa Inhaler*) 2 puff INH Q4H PRN PRN Reason: SOB/WHEEZING Last Admin: 02/17/18 13:33 Dose: 2 puff Apixaban (Eliquis*) 5 mg PO BID [facility] Last Admin: 02/19/18 08:04 Dose: 5 mg Aspirin (Aspirin Ec Tab*) 81 mg PO DAILY [facility] Last Admin: 02/19/18 08:01 Dose: 81 mg Cholecalciferol (Vitamin D Tab*) 1,000 units PO DAILY [facility] Last Admin: 02/19/18 08:02 Dose: 1,000 units Digoxin (Lanoxin Tab*) 0.0625 mg PO DAILY@1700 [facility] Last Admin: 02/18/18 16:51 Dose: 0.0625 mg Diltiazem HCl (Cardizem Cd Cap*) 120 mg PO DAILY [facility] Last Admin: 02/19/18 08:00 Dose: 120 mg Docusate Sodium (Colace Cap*) 100 mg PO BID [facility] Last Admin: 02/19/18 08:00 Dose: 100 mg Dronedarone (Multaq Tab*) 400 mg PO BID [facility] Last Admin: 02/19/18 08:01 Dose: 400 mg Guaifenesin (Mucinex*) 600 mg PO BID [facility] Last Admin: 02/19/18 08:01 Dose: 600 mg Sodium Chloride (Ns 0.9% 1000 Ml*) 1,000 mls @ 75 mls/hr IV PER RATE [facility] Last Admin: 02/19/18 09:40 Dose: 75 mls/hr Ceftriaxone Sodium 1 gm/ (Sodium Chloride) 50 mls @ 200 mls/hr IVPB Q24H [facility] Metoprolol Tartrate (Lopressor Tab*) 12.5 mg PO Q12HR [facility] Last Admin: 02/19/18 08:01 Dose: 12.5 mg Metoprolol Tartrate (Lopressor Iv*) 5 mg IV Q2H PRN PRN Reason: TACHYCARDIA Mometasone Furoate/Formoterol Fumar (Dulera 200/5 Mdi*) 2 puff INH BID [facility] Last Admin: 02/19/18 07:55 Dose: 2 puff Multivitamins/Minerals (Theragran/Minerals Tab*) 1 tab PO DAILY [facility] Last Admin: 02/19/18 08:00 Dose: 1 tab Omeprazole (Prilosec Cap*) 20 mg PO BID AC [facility] Last Admin: 02/19/18 08:00 Dose: 20 mg Oxycodone/Acetaminophen (Percocet 5/325 Tab*) 1 tab PO Q4H PRN PRN Reason: Pain Prednisone (Deltasone Tab*) 40 mg PO DAILY [facility] Last Admin: 02/19/18 08:02 Dose: 40 mg Tiotropium [place] (Spiriva Cap.Inh*) 1 cap INH DAILY [facility] Last Admin: 02/19/18 07:55 Dose: 1 cap Vital Signs - 8 hr 02/19/18 02/19/18 02/19/18 08:00 08:10 08:19 Temperature 99.4 F Pulse Rate 86 108 Respiratory 16 16 16 Rate Blood Pressure 92/66 (mmHg) O2 Sat by Pulse 93 100 Oximetry 02/19/18 02/19/18 08:59 11:09 Temperature 99.1 F Pulse Rate 128 69 Respiratory 16 Rate Blood Pressure 110/59 (mmHg) O2 Sat by Pulse 96 Oximetry Oxygen Devices in Use Now: Nasal Cannula Appearance: 72 yo m in nAD, aAOx3 Eyes: No Scleral Icterus, PERRLA Ears/Nose/Mouth/Throat: NL Teeth, Lips, Gums, Mucous Membranes Moist Neck: NL Appearance and Movements; NL JVP, Trachea Midline Respiratory: Symmetrical Chest Expansion and Respiratory Effort, - - coarse bibasiliar rhonchi Cardiovascular: - - irregular Abdominal: NL Sounds; No Tenderness; No Distention, No Hepatosplenomegaly Lymphatic: No Cervical Adenopathy Extremities: No Clubbing, Cyanosis, - - trace pedal edema b/l Skin: No Rash or Ulcers, No Nodules or Sclerosis Neurological: Alert and Oriented x 3, NL Muscle Strength and Tone Result Diagrams: 02/19/18 05:53 02/19/18 05:53 Additional Lab and Data: Lab Results 02/15/18 02/15/18 02/15/18 Range/Units 14:55 14:55 14:55 WBC 14.6 H (3.5-10.8) 10^3/ul RBC 4.59 (4.0-5.4) 10^6/ul Hgb 13.5 L (14.0-18.0) g/dl Hct 41 L (42-52) % MCV 90 (80-94) fL MCH 30 (27-31) pg MCHC 33 (31-36) g/dl RDW 14 (10.5-15) % Plt Count 181 (150-450) 10^3/ul MPV 8.3 (7.4-10.4) um3 Neut % (Auto) 83.6 H (38-83) % Lymph % (Auto) 6.4 L (25-47) % [place] % (Auto) 9.5 H (0-7) % Eos % (Auto) 0 (0-6) % Baso % (Auto) 0.5 (0-2) % Absolute Neuts (auto) 12.2 H (1.5-7.7) 10^3/ul Absolute Lymphs (auto) 0.9 L (1.0-4.8) 10^3/ul Absolute Monos (auto) 1.4 H (0-0.8) 10^3/ul Absolute Eos (auto) 0 (0-0.6) 10^3/ul Absolute Basos (auto) 0.1 (0-0.2) 10^3/ul Absolute Nucleated RBC 0 10^3/ul Nucleated RBC % 0 INR (Anticoag Therapy) 1.33 H (0.77-1.02) Sodium 139 (139-145) mmol/L Potassium 3.9 (3.5-5.0) mmol/L Chloride 98 L (101-111) mmol/L Carbon Dioxide 36 H (22-32) mmol/L Anion Gap 5 (2-11) mmol/L BUN 12 (6-24) mg/dL Creatinine 0.61 L (0.67-1.17) mg/dL Est GFR ( Amer) 167.1 (>60) Est GFR (Non-Af Amer) 129.9 (>60) BUN/Creatinine Ratio 19.7 (8-20) Glucose 118 H (70-100) mg/dL Lactic Acid (0.5-2.0) mmol/L Calcium 9.2 (8.6-10.3) mg/dL Total Bilirubin 0.60 (0.2-1.0) mg/dL AST 34 (13-39) U/L ALT 98 H (7-52) U/L Alkaline Phosphatase 85 (34-104) U/L Troponin I 0.25 H* (<0.04) ng/mL C-Reactive Protein 136.97 H (< 5.00) mg/L B-Natriuretic Peptide ( - 100) pg/mL Total Protein 6.5 (6.4-8.9) g/dL Albumin 3.8 (3.2-5.2) g/dL Globulin 2.7 (2-4) g/dL Albumin/Globulin Ratio 1.4 (1-3) Procalcitonin (<0.6) ng/mL Digoxin (0.8-2.0) ng/ml 02/15/18 02/15/18 02/15/18 Range/Units 14:55 14:55 14:55 WBC (3.5-10.8) 10^3/ul RBC (4.0-5.4) 10^6/ul Hgb (14.0-18.0) g/dl Hct (42-52) % MCV (80-94) fL MCH (27-31) pg MCHC (31-36) g/dl RDW (10.5-15) % Plt Count (150-450) 10^3/ul MPV (7.4-10.4) um3 Neut % (Auto) (38-83) % Lymph % (Auto) (25-47) % [place] % (Auto) (0-7) % Eos % (Auto) (0-6) % Baso % (Auto) (0-2) % Absolute Neuts (auto) (1.5-7.7) 10^3/ul Absolute Lymphs (auto) (1.0-4.8) 10^3/ul Absolute Monos (auto) (0-0.8) 10^3/ul Absolute Eos (auto) (0-0.6) 10^3/ul Absolute Basos (auto) (0-0.2) 10^3/ul Absolute Nucleated RBC 10^3/ul Nucleated RBC % INR (Anticoag Therapy) (0.77-1.02) Sodium (139-145) mmol/L Potassium (3.5-5.0) mmol/L Chloride (101-111) mmol/L Carbon Dioxide (22-32) mmol/L Anion Gap (2-11) mmol/L BUN (6-24) mg/dL Creatinine (0.67-1.17) mg/dL Est GFR ( Amer) (>60) Est GFR (Non-Af Amer) (>60) BUN/Creatinine Ratio (8-20) Glucose (70-100) mg/dL Lactic Acid 0.8 (0.5-2.0) mmol/L Calcium (8.6-10.3) mg/dL Total Bilirubin (0.2-1.0) mg/dL AST (13-39) U/L ALT (7-52) U/L Alkaline Phosphatase (34-104) U/L Troponin I (<0.04) ng/mL C-Reactive Protein (< 5.00) mg/L B-Natriuretic Peptide 106 H ( - 100) pg/mL Total Protein (6.4-8.9) g/dL Albumin (3.2-5.2) g/dL Globulin (2-4) g/dL Albumin/Globulin Ratio (1-3) Procalcitonin 0.1 (<0.6) ng/mL Digoxin (0.8-2.0) ng/ml 02/15/18 Range/Units 14:55 WBC (3.5-10.8) 10^3/ul RBC (4.0-5.4) 10^6/ul Hgb (14.0-18.0) g/dl Hct (42-52) % MCV (80-94) fL MCH (27-31) pg MCHC (31-36) g/dl RDW (10.5-15) % Plt Count (150-450) 10^3/ul MPV (7.4-10.4) um3 Neut % (Auto) (38-83) % Lymph % (Auto) (25-47) % [place] % (Auto) (0-7) % Eos % (Auto) (0-6) % Baso % (Auto) (0-2) % Absolute Neuts (auto) (1.5-7.7) 10^3/ul Absolute Lymphs (auto) (1.0-4.8) 10^3/ul Absolute Monos (auto) (0-0.8) 10^3/ul Absolute Eos (auto) (0-0.6) 10^3/ul Absolute Basos (auto) (0-0.2) 10^3/ul Absolute Nucleated RBC 10^3/ul Nucleated RBC % INR (Anticoag Therapy) (0.77-1.02) Sodium (139-145) mmol/L Potassium (3.5-5.0) mmol/L Chloride (101-111) mmol/L Carbon Dioxide (22-32) mmol/L Anion Gap (2-11) mmol/L BUN (6-24) mg/dL Creatinine (0.67-1.17) mg/dL Est GFR ( Amer) (>60) Est GFR (Non-Af Amer) (>60) BUN/Creatinine Ratio (8-20) Glucose (70-100) mg/dL Lactic Acid (0.5-2.0) mmol/L Calcium (8.6-10.3) mg/dL Total Bilirubin (0.2-1.0) mg/dL AST (13-39) U/L ALT (7-52) U/L Alkaline Phosphatase (34-104) U/L Troponin I (<0.04) ng/mL C-Reactive Protein (< 5.00) mg/L B-Natriuretic Peptide ( - 100) pg/mL Total Protein (6.4-8.9) g/dL Albumin (3.2-5.2) g/dL Globulin (2-4) g/dL Albumin/Globulin Ratio (1-3) Procalcitonin (<0.6) ng/mL Digoxin 0.5 L (0.8-2.0) ng/ml Microbiology and Other Data: Microbiology 02/15/18 19:30 Gram Stain - Final Sputum Expectorated 02/15/18 18:45 Nasal Screen MRSA (PCR)(JAY) - Final Nasal Mrsa Not Detected 02/15/18 17:23 Influenza Types A,B Antigen (JAY) - Final Nasal Specimen received for Influenza A/B Molecular testing Assess/Plan/Problems-Billing Mr Espino is a 72 yo M who has a h/o afib s/p ablation 02/14/18 in [place] and O2 dependent severe COPD with chronic hypoxic respiratory failure who presented to the ER 1 day after his ablation with c/o fever and was found to be in rapid afib. - Patient Problems (1) Afib Comment: Pt continues to flip in and out of afib. His HR is not controlled at this time. Added low dose metoprolol 12.5mg BID on 02/18/18, but today SBP was in the 90's. Asked Dr. Byrd to re-visit pt (2) COPD (chronic obstructive pulmonary disease) Comment: Slight exacerbation on admission now resolved. Continue prednisone 40mg daily with very slow taper (10mg/week) to try to prevent rebound SOB/ inflammation. Continue nebs, spiriva. (3) Full code status (4) Pneumonia Comment: Cefepime switched to Ceftriaxone, then can be on Keflex. Appreciate Dr. Boone's consult . Repeat CXR in a month (5) DVT prophylaxis Comment: Eliquis Status and Disposition: inpatient
--- NOTE | 2018-02-19 14:56 | CONS ---
CONSULTATION REPORT: DATE OF CONSULT: 02/19/18 REQUESTING PHYSICIAN: Dr. Butler. CONSULTING SERVICE: Infectious Disease. REASON FOR CONSULT: Pneumonia. IMPRESSION: 1. Fever, left upper and left lower lobe infiltrates and small left pleural effusion, growing Branhamella catarrhalis in the sputum for Moraxella catarrhalis. The blood cultures are negative. Fevers and leukocytosis have resolved. His oxygen requirement decreased from 8 L a minute down to 3 which is the baseline. 2. Chronic hypoxemic respiratory failure. 3. Chronic obstructive pulmonary disease, supplemental oxygen dependent. 4. Status post atrial flutter ablation, [facility], the day before the symptoms developed. RECOMMENDATIONS: 1. Stop cefepime. Start ceftriaxone, and have a dose today, which is his 5th day of IV antibiotics. After that he can switch to Keflex 500 mg by mouth 3 times a day for 2 more days to complete a week. He is to have a follow up chest x-ray in a month. 2. Corticosteroid taper per the hospitalist. HISTORY OF PRESENT ILLNESS: This is a 72-year-old man with supplemental oxygen - dependent COPD, had a recent atrial flutter ablation in [facility], next day he developed a fever and left-sided chest pain which was worse with a deep breath. A chest x-ray that showed infiltrates and effusion which confirmed on CT of the chest that showed no pulmonary embolism. He was initially requiring 8 L of supplemental oxygen when he came to the hospital and had a temperature of 38.4. He was started on cefepime, gradually had improvement of his leukocytosis, it went from 15 down to 8. His fevers resolved. His breathing slowly got better. The oxygen titrated off. He has continued to have cough productive of greenish sputum without any blood in it. His left-sided chest pain has resolved. Not had any dysuria or abdominal pain. PAST MEDICAL HISTORY: 1. COPD, supplemental oxygen dependent. 2. Atrial flutter status post ablation, 02/14/18. 3. Status post cholecystectomy. 4. History of cataract extraction bilaterally. 5. 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 MEDICATIONS: 1. Tylenol. 2. Albuterol. 3. Eliquis. 4. Aspirin. 5. Cholecalciferol. 6. Dronedarone. 7. Docusate. 8. Guaifenesin. 9. Metoprolol. 10. Omeprazole. 11. Prednisone 40 mg a day. 12. Cefepime 1 g every 12 hours. 13. Spiriva. ALLERGIES: PENICILLIN caused unknown reaction, ROFLUMILAST. FAMILY HISTORY: No recurrent infections. SOCIAL HISTORY: Lives with his in [place]. Past smoker. REVIEW OF SYSTEMS: All negative 14-point review of systems except as noted above. PHYSICAL EXAM: Vital Signs: Temperature 37.4, heart rate 100, respiratory rate 16, blood pressure of 92/66, and oxygen saturation 100% on 3 L. General: He is awake, not in distress. Neurologic: He is oriented x3. Follows all commands. HEENT: There is no conjunctival hemorrhage. Oropharynx without lesions. Neck: Supple without mass. Lymph nodes: There is no inguinal, axillary, or epitrochlear lymphadenopathy. Heart: Regular regular, rate, and rhythm without murmurs, rubs, or gallops. Lungs: There are very distant breath sounds bilateral without wheezes, rales, or rhonchi. Abdomen: Soft, nontender, and nondistended. There is bowel sounds present. Skin: There is no rashes or splinter hemorrhages. Musculoskeletal: There is no spinous tenderness to palpation. DIAGNOSTIC STUDIES/LAB DATA: White blood cell count 8.4, hemoglobin 11, platelets 192, creatinine 0.5, CRP 26. Please see impressions and recommendations outlined above, which I have discussed with Dr. Butler. Thank you for asking me to see Mr. Espino in consultation. [id number]/[facility] #: [id number] [facility]
[2018-02-19] MEDS ORDERED: cefTRIAXone(*) 1 GM in NS 0.9% 50 ML* 50 ML IVPB SCH (15:00)
[2018-02-19] MEDS: Digoxin TAB* 0.125 MG PO SCH (17:05)
[2018-02-20 06:03] VITALS: BP 112/57
[2018-02-20] MEDS: Metoprolol Tartrate TAB* 25 MG PO SCH (08:13)
[2018-02-20] MEDS: Multivitamins/Minerals TAB PO SCH (08:14)
[2018-02-20] MEDS: Dronedarone TAB* 400 MG PO SCH (08:14)
[2018-02-20] MEDS: Diltiazem CD CAP* 120 MG PO SCH (08:14)
[2018-02-20] MEDS: predniSONE TAB* 20 MG PO SCH (08:14)
[2018-02-20] MEDS: Aspirin EC TAB* 81 MG TAB.EC PO SCH (08:14)
[2018-02-20] MEDS: Apixaban* 5 MG TAB PO SCH (08:14)
[2018-02-20] MEDS: guaiFENesin ER TAB 600 MG PO SCH (08:15)
[2018-02-20] MEDS: Cholecalciferol TAB* 1000 UNITS PO SCH (08:15)
[2018-02-20] MEDS: Omeprazole CAP* 20 MG PO SCH (08:16)
[2018-02-20] MEDS: Docusate CAP* 100 MG PO SCH (08:16)
[2018-02-20] MEDS: Albuterol HFA INHALER* 8 gm MDI INH PRN (09:07)
[2018-02-20] MEDS: Mometasone/Formoter 200/5 MDI INH SCH (09:08)
[2018-02-20] MEDS: Tiotropium CAP.INH* CAP.INH/18 MCG (USE ORDER SET !) INH SCH (09:09)
--- NOTE | 2018-02-20 12:06 | DS ---
CC: Dr. Dietz; Dr. Rebolledo; Dr. Berg; Dr. aLndrum; Dr. Kelly; Dr. Byrd; Dr. Boone* DISCHARGE SUMMARY: DATE OF ADMISSION: 02/15/18 DATE OF DISCHARGE: 02/20/18 PRIMARY CARE PROVIDER: Dr. Dietz. DISCHARGE DIAGNOSES: 1. Pneumonia, suspected aspiration after cardiac ablation procedure performed by Dr. Landrum in [facility] on 02/14/18. 2. Paroxysmal atrial fibrillation, persistent. SECONDARY DIAGNOSES: 1. History of atrial fibrillation, status post ablation as above mentioned. 2. History of chronic obstructive pulmonary disease, on 3 L of oxygen nasal cannula at baseline. 3. Cholecystectomy in January 2016. 4. Cataract surgery bilaterally. 5. History of excision of left benign wart and duct tumor. MEDICATIONS AT DISCHARGE: Include: 1. Oxygen at 3 L continuous. 2. Albuterol nebulizer every 6 hours p.r.n. 3. Eliquis 5 mg b.i.d. 4. Cardizem CD lowered dose from 240 to 120 mg CD. 5. Symbicort 160/4.5 two puffs inhalation b.i.d. 6. Aspirin 81 mg daily. 7. Keflex 500 mg 3 times a day for 2 days total and then stop. 8. Vitamin D3 1000 units daily. 9. Digoxin half of tablet, which was 0.125, which is 0.0625 mg a day. 10. Multaq 400 mg b.i.d. 11. Lopressor 12.5 mg every 12 hours. 12. Multivitamin 1 tablet daily. 13. Prednisone 20 mg daily. 14. Spiriva 1 inhalation daily. CONSULTATIONS DURING THE HOSPITAL STAY: Included Dr. Kelly from Cardiology, Dr. Boone from Infectious Diseases. LABORATORY DATA AND STUDIES PERFORMED DURING THE HOSPITAL STAY: Included on , white blood cell count of 8.4, hemoglobin 11.2, hematocrit of 34, and platelets of 192. Sodium was 143, potassium 3.8, chloride 101, carbon dioxide 40, BUN 15, creatinine 0.49. C-reactive protein day prior to discharge was 26. Troponin peaked at 0.25 that was at admission. Influenza testing was unremarkable at admission. Digoxin level last obtained on 02/17/[address] angiogram of the chest obtained on 02/15/18, impression: "No evidence for pulmonary embolism. Left upper and lower lobe infiltrates and small left pleural effusion suggestive of pneumonia. Mildly prominent mediastinal lymph nodes. Emphysema." HOSPITALIZATION COURSE: Mr. Espino is a 72-year-old male, who at [facility] for ablation for his atrial fibrillation on 02/14/18. A day later, he developed fever and chills and he came to the hospital for evaluation. The initial suspicion was maybe he became bacteremic with aspiration pneumonia. Initial sputum cultures grew Branhamella catarrhalis. Blood cultures were negative. He was treated with broad-spectrum antibiotics, which initially included cefepime and vancomycin, later on it was narrowed to cefepime. Dr. Boone saw the patient in consultation on 02/19/18 and lowered the patient's coverage further to ceftriaxone only. Dr. Boone recommended for the patient to continue on Keflex for 2 more days to finish a 7-day course of antibiotics for pneumonia. At this point, the suspicion is maybe the patient had aspiration pneumonia during his ablation procedure. The patient on the day of discharge is back to his baseline oxygen needs at 3 L. Please note that when the patient was admitted initially, he was placed on stress- dose steroids. On the day of discharge, he is down to 20 mg of prednisone daily, but he still requires further taper, which I would suggest that would be a slow taper due to his chronic prednisone use at baseline. In the past, the patient was on prednisone 5 mg daily. The patient was seen by Dr. Kelly, Dr. Rebolledo, as well as Dr. Byrd from Cardiology due to paroxysmal atrial fibrillation. The patient continues to be asymptomatic, but slipping in and out of atrial fibrillation with the highest heart rate in the 120s to 130s. At this point, after discussion with Dr. yBrd , no further suggestions were made in regards to the patient's medications. The patient is recommended to follow up with Dr. Rebolledo as an outpatient and likely Holter monitor. Please note that the patient's Cardizem dose was half due to hypotension and then metoprolol at low dose was added on. The patient's Multaq was restarted at admission. The patient is being discharged home with recommendation to follow up with his primary care provider as well as Dr. Landrum as previously mentioned. The patient is also recommended to follow up with Dr. Rebolledo and Dr. Berg within the next couple of weeks. PHYSICAL EXAMINATION: At the time of discharge, blood pressure of 112/57, heart rate of 66 and regular, respiratory rate 16, oxygen saturation % on 3 L of oxygen nasal cannula, temperature of 98.4. General: The patient is a very pleasant 72-year-old male, who is in no acute distress. Alert, awake, and oriented x3. HEENT: Head: Atraumatic, normocephalic. Eyes: Pupils are equal , reactive to light and accommodation. Oropharynx is clear. Mucosa moist. Neck: Supple. No JVD. No bruits bilaterally. Cardiovascular: Regular rate and rhythm. No murmur. Respiratory: Crackles at bilateral bases present. Abdomen: Soft, nontender. Bowel sounds are present in all 4 quadrants. Extremities: There is +1 pitting pedal edema bilaterally. Pulses are +2 bilaterally. There is no clubbing or cyanosis. On neuro evaluation, speech is clear. Cranial nerves II through XII grossly intact. Motor strength is 5/5 bilaterally. Please note that this is a short summary of the patient's hospitalization. Please refer to further medical records for details. TIME SPENT: Approximately 40 minutes was spent on the patient's discharge. [id number]/[facility] #: [id number] [facility]ITAL[facility]
[2018-02-20] MEDS: Albuterol 2.5 MG/3 ML NEB.SOL* (0.083%) INH PRN (13:39)
[2018-02-21] MEDS ORDERED: predniSONE TAB* 20 MG PO SCH (09:00)
== END 2018-02-20 13:50 | disposition home or self-care (01) | DRG 205 ==
LOC: ED 14:29 → ICU 17:05 → MEDTELE 02-16 10:24
PROVIDERS: ADMIT Internal Medicine; ATTEND Internal Medicine
DX: J95.89 Other postprocedural complications and disorders of respiratory system, not elsewhere classified (principal); J69.0 Pneumonitis due to inhalation of food and vomit; J96.11 Chronic respiratory failure with hypoxia; J44.1 Chronic obstructive pulmonary disease with (acute) exacerbation; J91.8 Pleural effusion in other conditions classified elsewhere; I48.0 Paroxysmal atrial fibrillation; Z99.81 Dependence on supplemental oxygen; Z79.01 Long term (current) use of anticoagulants; Z79.82 Long term (current) use of aspirin; Z79.52 Long term (current) use of systemic steroids; Z79.899 Other long term (current) drug therapy; Z88.0 Allergy status to penicillin; Z88.8 Allergy status to other drugs, medicaments and biological substances; Z82.49 Family history of ischemic heart disease and other diseases of the circulatory system; Z80.3 Family history of malignant neoplasm of breast; Z82.5 Family history of asthma and other chronic lower respiratory diseases; Z87.891 Personal history of nicotine dependence
CPT/HCPCS: 36415; 71045; 71275; 80048; 80053; 80162; 80202; 81003; 81015; 83605; 83735; 83880; 84145; 84484; 85025; 85027; 85610; 86140; 87040; 87070; 87205; 87502; 87641; 93005; 94640; 94760; 99285; A9270-GY; J0692; J0696; J1160; J1720; J3370; J3490; J7512; Q9967

== ENCOUNTER 2018-08-06 08:06 | Day surgery (SDC) | payer MEDICARE, OTHER ==
--- NOTE | 2018-08-01 14:08 | HP ---
CC: Dr. Dietz * HISTORY AND PHYSICAL: DATE OF PLANNED ADMISSION AND SURGERY: 08/06/18 HISTORY OF PRESENT ILLNESS: Mr. Espino is a 72-year-old white male who is admitted with a right renal calculus for shockwave lithotripsy and right ureteral stent placement. Mr. Espino was referred to my office by Dr. Dietz because of recurrent episodes of gross painless hematuria. Mr. Espino gives past history of chronic heavy smoking and has advanced COPD, on 24 hour oxygen. He was worked up for the gross hematuria with a CT urogram, which showed a 5-6 mm calculus at the right ureteropelvic junction associated with mild right hydronephrosis. No other abnormalities were noted in the kidneys or the collecting systems or the ureters. Office cystoscopy showed no suspicious bladder lesions. The source of the hematuria is most likely the right renal calculus. The patient has been on Eliquis and on aspirin and were both discontinued and the gross hematuria has resolved. The stone has been followed and it remained in the same location for the last month. A KUB was obtained and showed the calculus to be radio-opaque at the Rt UPJ level. The patient is now admitted for the above procedure. PAST MEDICAL HISTORY AND SYSTEM REVIEW: I am including a detailed history and physical dated 07/26/[address] 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 Basically, the patient is a former heavy smoker with the significant COPD, recurrent bronchitis , who is on 24 hour oxygen. He also has history of atrial fibrillation and has been maintained on Eliquis and aspirin, which were both discontinued in preparation for this procedure. He also has right bundle branch block. MEDICATIONS: He is maintained on the following medications: 1. Diltiazem 120 mg daily. 2. Digoxin 125 mcg half a tablet daily. 3. Multaq 400 mg 1 tablet every 12 hours. 4. 2 puffs every 4 hours as needed. 5. Symbicort 2 puffs twice a day. 6. Albuterol via nebulizer every 6 hours as needed. 7. Continuous oxygen 2 to 3 L per minute. 8. Mucinex 600 mg twice a day as needed and Spiriva inhaler. ALLERGIES: He reports being allergic to PENICILLIN. The patient had received Keflex on his admission in January 2018 without any reaction. PHYSICAL EXAMINATION GENERAL: Pleasant white male who is on oxygen and who developed short of breath on mild physical activities. VITAL SIGNS: Blood pressure 114/70, pulse 74. LUNGS: Clear with the scattered wheezing but no rales. HEART: Regular and rhythmic. No murmurs. ABDOMEN: Exam is normal. He has no CVA tenderness. EXTERNAL GENITALIA: Normal. RECTAL: Exam shows a slightly enlarged but nonsuspicious prostate. IMPRESSION: Recurrent episodes of gross painless hematuria secondary to a 6- mm calculus at the right ureteropelvic junction with minimal obstruction with the stone in the same position for the last month. Advanced COPD on 24 hour oxygen. History of paroxysmal atrial fibrillation, on treatment. PLAN: Plan is for shockwave lithotripsy of the right renal calculus and placement of right ureteral stent. I discussed the above plans with the patient and his and all their questions were answered. [id number]/[facility] #: [id number] MTDD
[~2018-08-06 08:06] MED LIST: Buffered Lidocaine 0.9% SYRIN* 5 ML/SYR SYRINGE INTRADERM ONE; Dexamethasone IV* 4 MG/ML 1 ML (4 MG) IV SLOW PU ONE; Famotidine IV* 10 MG/ML 2 ML (20 mg) IV ONE; Levalbuterol 0.63MG/3ML NEB* UNIT OF USE INH ONE
[2018-08-06] MEDS ORDERED: Buffered Lidocaine 0.9% SYRIN* 5 ML/SYR SYRINGE ONE (08:16)
[2018-08-06] MEDS ORDERED: Levalbuterol 0.63MG/3ML NEB* UNIT OF USE INH ONE (08:16)
[2018-08-06] MEDS ORDERED: cefTRIAXone(*) 2 GM ADDV.VIAL IVPB ONE (08:16)
[2018-08-06] MEDS ORDERED: Famotidine IV* 10 MG/ML 2 ML (20 mg) ONE (08:16)
[2018-08-06] MEDS ORDERED: Dexamethasone IV* 4 MG/ML 1 ML (4 MG) ONE (08:16)
--- NOTE | 2018-08-06 08:57 | RAD ---
Indication: Preoperative assessment for RIGHT side lithotripsy. Comparison: July 30, 2018 radiographs and July 26, 2018 CT. Technique: Supine view of the abdomen. Report: Bowel contents partially obscures the renal fossa. No suspicious calcifications evident at either renal fossa or along the expected course of the ureters. Aorta and iliac vascular calcifications noted. Unremarkable bowel gas pattern. Unremarkable soft tissue contours. IMPRESSION: #. No radiographic conspicuous urolithiasis.
[2018-08-06] MEDS ORDERED: fentaNYL* 50 MCG/ML 2 ML VIAL (100 MCG VIAL) ONE (10:29)
[2018-08-06] MEDS ORDERED: Midazolam* 1 MG/ML 5 ML VIAL (5 MG) ONE (10:30)
[2018-08-06] MEDS ORDERED: Iohexol 180 (CONTRAST) 10 ML SDV IV ONE (10:50)
[2018-08-06] MEDS ORDERED: oxyCODONE/Acetamin 5/325 MG* TAB PO PRN (11:03)
[2018-08-06] MEDS ORDERED: Naloxone* 0.4 MG/ML 1 ML VIAL IV PRN (11:03)
[2018-08-06] MEDS ORDERED: fentaNYL* 50 MCG/ML 2 ML VIAL (100 MCG VIAL) IV PRN (11:03)
[2018-08-06] MEDS ORDERED: DiMENhydriNATE IV* 50 MG/ML VIAL IV PUSH PRN (11:03)
[2018-08-06] MEDS ORDERED: Ondansetron INJ* 2 MG/ML VIAL IV PRN (11:03)
[2018-08-06] MEDS ORDERED: Chloroprocaine 2%* 20 ML VIAL ONE (11:13)
[2018-08-06] MEDS ORDERED: Ondansetron INJ* 2 MG/ML VIAL ONE (11:25)
[2018-08-06 12:10] VITALS: BP 117/66
[2018-08-06] MEDS ORDERED: fentaNYL* 50 MCG/ML 5 ML VIAL (250 MCG VIAL) ONE (12:32)
--- NOTE | 2018-08-06 14:17 | RAD ---
Indication: Postop ureteral stent placement. Comparison: August 06, 2018 abdomen radiograph. July 26, 2018 CT. Technique: Supine view of the abdomen. Report: RIGHT ureteral stent in place. No conspicuous RIGHT side urolithiasis. Macroscopic calcifications at the prostate noted. Gallbladder fossa surgical clips and LEFT renal vascular calcification noted. Unremarkable bowel gas pattern and soft tissue contours. IMPRESSION: #. RIGHT ureteral stent in place.
--- NOTE | 2018-08-06 16:55 | OP ---
CC: Dr. Dietz * DATE OF OPERATION: 08/06/18 - [facility] DATE OF : 45 SURGEON: Shakeel Boyce MD ANESTHESIOLOGIST: Min Lake MD ANESTHESIA: Spinal. PRE-OP DIAGNOSES: 1. Proximal right ureteral calculus. 2. Recurrent episodes of gross hematuria due to above. POST-OP DIAGNOSES: 1. No x-ray visualization of right renal or right ureteral calculus. 2. Bladder gravel fragments. OPERATIVE PROCEDURE: 1. Cystoscopy. 2. Right retrograde pyelography. 3. Placement of right ureteral stent (6-Tanzanian). INDICATION FOR PROCEDURE: Mr. Espino is a 72-year-old white male who has been having recurrent episodes of gross hematuria for about a month. He has been on anticoagulation with Eliquis and aspirin and both were discontinued and the hematuria resolved. Workup with cystoscopy and CT urogram showed a 5 to 6 mm calculus at the right ureteropelvic junction associated with mild hydronephrosis. No other abnormalities were noted. At that time KUB showed calcification in the area of the ureteropelvic junction consistent with the stone seen on the CT. Because of the above history and findings, shockwave lithotripsy and stent placement were recommended. PATHOLOGY: Preoperative KUB failed to visualize the calculus in the right ureter or the right ureteropelvic junction. Fluoroscopy in the operating room also did not convincingly show a radiopaque calculus in the kidney or in the ureter. Following placement of the guidewire and then following the placement of the stent, repeat fluoroscopy again failed to show any radiopaque calculus in the right ureter or the right collecting system. Cystoscopy showed normal urethra. There was moderate prostate enlargement and obstruction. The bladder wall looked normal and no suspicious bladder lesions were seen. The ureteral orifices looked normal. There was gravel in the bladder with about 5 or 6 fragments measuring about 2 mm each were noted. DESCRIPTION OF PROCEDURE: After successful spinal anesthesia, the patient was placed in the supine position on the shockwave lithotripsy table. Fluoroscopy was performed to visualize the right kidney and proximal ureter and there was no radiopaque calculus noted. The patient was then placed in the lithotomy position and was prepped and draped for a cystoscopy. Cystoscopy was performed. The above findings were noted. A flexible-tip guidewire was then introduced into the right orifice and positioned in the renal pelvis. Fluoroscopy was then performed again looking for a calculus and it was not noted. A retrograde pyelography was then done and a 6-Tanzanian stent was placed with the proximal end coiling in the renal pelvis and the distal end coiling inside the bladder. A size 16-Tanzanian Vera catheter was then placed. The patient was placed again in the supine position. After draining the contrast from the kidney, additional fluoroscopy was performed and again no findings convincing of a calculus along the ureter or the collection system were noted. The patient tolerated the procedure well and left the operating room in good condition. The plan is to obtain a postoperative KUB. If the calculus cannot be seen, a noncontrast CT of the abdomen and pelvis will be done. We will decide then on the management. [id number]/[facility] #: [id number] MTDD
== END 2018-08-06 13:30 | disposition home or self-care (01) ==
LOC: OR 08:06
PROVIDERS: ATTEND Urology
DX: N13.2 Hydronephrosis with renal and ureteral calculous obstruction (principal); R31.9 Hematuria, unspecified; Z79.01 Long term (current) use of anticoagulants; N40.1 Benign prostatic hyperplasia with lower urinary tract symptoms; N13.8 Other obstructive and reflux uropathy; J44.9 Chronic obstructive pulmonary disease, unspecified; Z87.891 Personal history of nicotine dependence; I48.91 Unspecified atrial fibrillation; Z99.81 Dependence on supplemental oxygen
CPT/HCPCS: 74018; C1876; J0696; J1100; J2250; J2400; J2405; J3010

== ENCOUNTER → 2018-09-17 05:39 | Day surgery (SDC) | payer MEDICARE, OTHER ==
--- NOTE | 2018-09-13 21:15 | HP ---
CC: Dr. Dietz * HISTORY AND PHYSICAL: DATE OF PLANNED ADMISSION AND SURGERY: 09/17/18 HISTORY OF PRESENT ILLNESS: Mr. Espino is a 73-year-old white male who is admitted with a right renal calculus for shockwave lithotripsy. Mr. Espino was worked up because of recurrent episodes of gross painless hematuria while he was on anticoagulation with Eliquis and aspirin. At that time, his cystoscopy was negative and the urogram showed a 6 mm calculus at the right ureteropelvic junction associated with mild hydronephrosis. No other abnormalities were noted and the stone was the most likely cause of the hematuria. The patient was taken to the operating room on 08/06/18 with the plan of a placement of a Rt ureteral stent and shockwave lithotripsy. The right renal calculus could not be visualized on fluoroscopy to perform the shockwave lithotripsy, he had a right ureteral stent placement.. The stent was removed a week later. He then had a KUB which identified a 5 to 6 mm calculus in the lower pole calyx of the right kidney. With that finding, the patient now is admitted for shockwave lithotripsy. The patient has been off the aspirin and the Eliquis for the last 4 weeks. PAST MEDICAL HISTORY AND SYSTEM REVIEW: Please refer to the history and physical dated 07/26/[address] 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 Mr. Espino was a chronic heavy smoker of 50 pack year, stopped 4 years ago. He has significant degree of COPD with recurrent bronchitis, and is on 24-hour oxygen. He has history of atrial fibrillation and had been maintained on Eliquis and aspirin which were both discontinued. He had a cholecystectomy in Jan 2016. Bilateral cataract surgeries. MEDICATIONS: He is maintained on the following medications: 1. Diltiazem 120 mg daily. 2. Digoxin 125 mcg half a tablet daily. 3. Multaq 400 mg 1 tablet every 12 hours. 4. Symbicort 2 puffs twice a day. 5. Albuterol via nebulizer every 6 hours as needed. 6. Oxygen 2 to 3 L per minute. 7. Mucinex 600 mg twice a day as needed. 8. Spiriva inhaler. ALLERGIES: The patient reports being allergic to PENICILLIN, and Roflumilast. Social History: Former heavy smoker. No alcohol intake. No recreational drugs. FAMILY HISTORY: Negative for renal diseases. Mother gives history of CAD PHYSICAL EXAMINATION GENERAL: He is a pleasant white male who is on oxygen and who has shortness of breath on minimal physical activities. VITAL SIGNS: Blood pressure 120/70; pulse of 95, irregular. LUNGS: Occasional wheezing, but no rales. HEART: No murmurs. ABDOMEN: Soft. No masses. No tenderness and no CVA tenderness. NICOLE: moderately enlarged non suspicious prostate. IMPRESSION: 1. Symptomatic right renal calculus causing recurrent episodes of gross hematuria which migrated into the lower pole calyx of the right kidney after stent placement. 2. Chronic obstructive pulmonary disease secondary to chronic smoking, on 24- hour oxygen. 3. History of atrial fibrillation, off anticoagulation in preparation for the procedure. PLAN: Shockwave lithotripsy of the right renal calculus. I discussed the above plans with the patient and his and all their questions were answered. [id number]/[facility] #: [id number] MTDD
[~2018-09-17 05:39] MED LIST changes: +Acetaminophen TAB* 325 MG PO PRN; +Buffered Lidocaine 0.9% SYRIN* 5 ML/SYR SYRINGE ONE; +Chloroprocaine 2%* 20 ML VIAL ONE; -Dexamethasone IV* 4 MG/ML 1 ML (4 MG) IV SLOW PU ONE; +DiMENhydriNATE IV* 50 MG/ML VIAL IV PUSH PRN; -Famotidine IV* 10 MG/ML 2 ML (20 mg) IV ONE; +Famotidine IV* 10 MG/ML 2 ML (20 mg) ONE; +Gentamicin ADULT (*) 160 MG in NS 0.9% 100 ML* 100 ML IVPB ONE; +HYDROcodone/ACETAMIN 5-325 MG* 1 TAB PO PRN; -Levalbuterol 0.63MG/3ML NEB* UNIT OF USE INH ONE; +Levalbuterol 0.63MG/3ML NEB* UNIT OF USE INH PRN; +Lidocaine 2% PF * 5 ML VIAL ONE; +Midazolam* 1 MG/ML 2 ML VIAL (2 MG) ONE; +Naloxone* 0.4 MG/ML 1 ML VIAL IV PRN; +fentaNYL* 50 MCG/ML 2 ML VIAL (100 MCG VIAL) IV PRN; +fentaNYL* 50 MCG/ML 2 ML VIAL (100 MCG VIAL) ONE
[2018-09-17 09:25] VITALS: BP 104/70
--- NOTE | 2018-09-17 20:39 | OP ---
CC: Dr. Dietz.* DATE OF OPERATION: 09/17/18 - [facility] DATE OF : 45 SURGEON: Dr. Boyce. ANESTHESIOLOGIST: Dr. Juan Montes. ANESTHESIA: Spinal. PRE-OP DIAGNOSIS: Right renal calculus (6 mm). POST-OP DIAGNOSIS: Right renal calculus (6 mm). OPERATIVE PROCEDURE: Shockwave lithotripsy of right renal calculus. INDICATION FOR PROCEDURE: Mr. Espino is a 73-year-old white male who presented about 2 months ago with gross painless hematuria and was found on workup to have a 6 to 7 mm calculus at the right ureteropelvic junction with associated mild hydronephrosis. He had stent placement. The calculus could not be well visualized for shockwave lithotripsy. After the stent was removed, the KUB showed the calculus to have dropped into a lower pole infundibulum. The patient is here for shockwave lithotripsy. PATHOLOGY: Preoperative KUB and fluoroscopy both showed 6 to 7 mm calculus located in the lower pole infundibulum of the right kidney. DESCRIPTION OF PROCEDURE: After successful spinal anesthesia, patient was placed in the supine position on the shockwave lithotripsy table. The right renal calculus was visualized in both the PA and oblique x-ray views and the position of the patient and of the generator were adjusted to have the stone in the focus of the shock waves. A total of 1,000 shocks were then delivered at the rate of 60 shocks per minute. The proper positioning of the stone and its fragmentation were monitored periodically. At the completion of the treatment, the fragmentation of the calculus looked very satisfactory. Patient tolerated the procedure well and left the operating room in good condition. [id number]/[facility] #: [id number] [facility]
== END | disposition home or self-care (01) ==
LOC: OR 05:39
PROVIDERS: ATTEND Urology
DX: N20.0 Calculus of kidney (principal); R31.0 Gross hematuria; Z87.891 Personal history of nicotine dependence; J44.9 Chronic obstructive pulmonary disease, unspecified; I48.91 Unspecified atrial fibrillation; Z79.01 Long term (current) use of anticoagulants; Z88.0 Allergy status to penicillin
CPT/HCPCS: 74018; J1580; J2250; J2400; J3010

== ENCOUNTER → 2018-11-03 10:24 | Emergency (ER) | payer MEDICARE, OTHER ==
[~2018-11-03 10:24] MED LIST changes: -Acetaminophen TAB* 325 MG PO PRN; +Albuterol 0.5% CONC NEB.SOL* 5 MG/ML 20 ml BOT INH ONE; +Albuterol 2.5 MG/3 ML NEB.SOL* (0.083%) INH ONE; +Albuterol/Ipratropium NEB.SOL* Albuterol 2.5 MG/Ipratropium 0.5 MG 3 ML INH ONE; +Azithromycin TAB* 250 MG PO ONE; -Buffered Lidocaine 0.9% SYRIN* 5 ML/SYR SYRINGE INTRADERM ONE; -Buffered Lidocaine 0.9% SYRIN* 5 ML/SYR SYRINGE ONE; -Chloroprocaine 2%* 20 ML VIAL ONE; -DiMENhydriNATE IV* 50 MG/ML VIAL IV PUSH PRN; -Famotidine IV* 10 MG/ML 2 ML (20 mg) ONE; -Gentamicin ADULT (*) 160 MG in NS 0.9% 100 ML* 100 ML IVPB ONE; -HYDROcodone/ACETAMIN 5-325 MG* 1 TAB PO PRN; -Levalbuterol 0.63MG/3ML NEB* UNIT OF USE INH PRN; -Lidocaine 2% PF * 5 ML VIAL ONE; -Midazolam* 1 MG/ML 2 ML VIAL (2 MG) ONE; -Naloxone* 0.4 MG/ML 1 ML VIAL IV PRN; -fentaNYL* 50 MCG/ML 2 ML VIAL (100 MCG VIAL) IV PRN; -fentaNYL* 50 MCG/ML 2 ML VIAL (100 MCG VIAL) ONE; +predniSONE TAB* 20 MG PO ONE
--- OUTSIDE RECORDS SUMMARY | 2018-11-03 11:00 | XMS REPORT | Continuity of Care Document ---
:1945 External Reference #:[id number] Author Name Maulikyasmine Ruth Care Team Providers Name Role Phone Min Dietz MD Primary Care Physician Unavailable Payers Type Date Identification Numbers Payment Provider Subscriber Effective: Policy Number: [id number] Medicare Kory Espino 2010 PayID: [id number] [address] [place] [address] Effective: 1994 Policy Number: [id number] [employer] Kory Espino Group Number: [id number] [address] PayID: [id number] [place] [address] Advance Directives Description No Information Available Problems Date Description Provider Status Onset: 01/29/2014 Tobacco user Lukas Hernandez M.D. Onset: 01/29/2014 Difficulty breathing Lukas Hernandez M.D. Onset: 01/29/2014 Electrocardiogram abnormal Lukas Hernandez M.D. Onset: 01/29/2014 Right bundle branch block Lukas Hernandez M.D. Onset: 04/03/2014 Dyspnea Lukas Hernandez M.D. Onset: 11/25/2015 Emphysema, unspecified Wendi Berg MD Active Onset: 09/26/2016 Chronic obstructive lung disease Wendi Berg MD Active Onset: 11/07/2016 Chronic obstructive pulmonary Wendi Berg MD Active disease with (acute) exacerbation Onset: 12/23/2016 Pneumonia Wendi Berg MD Active Family History Date Family Member(s) Problem(s) Comments Father "racing heart" Father due to COPD () Father Chronic Obstructive Pulmonary Disease (COPD) Mother Bladder Cancer Mother due to Bladder Cancer () Mother due to various cardiac () - specifics issues unknown Mother Heart Disease First Son Alive And Well First Daughter Alive And Well Siblings Sister of ?cervical cancer, sister unknown circumstances Siblings 5 Other 3 healthy First Sister due to Cancer () First Sister due to Cancer, Ovarian () Social History Type Date Description Comments Sex Unknown Marital Status Lives With Occupation Retired ETOH Use Rarely consumes alcohol Tobacco Use Start: Unknown End: Patient is a former quit 2013, smoked 2 Unknown smoker PPD for 50 years Recreational Drug Use Denies Drug Use Smoking Status Reviewed: 10/11/18 Patient is a former quit 2013, smoked 2 smoker PPD for 50 years Exercise Type/Frequency Exercises sporadically Working on the [employer] Allergies, Adverse Reactions, Alerts Date Description Reaction Status Severity Comments 01/29/2014 Penicillins feet swelling, pain Active 11/25/2015 Daliresp Active Nausea/weight loss Medications Medication Date Status Form Strength Qnty SIG Indications Ordering Provider Xopenex 08/09 Active Nebulizer 1.25mg/3M 72ml 1 unit, J44.9 L nebl, every MD [facility] 6 hrs as needed for sob Diltiazem CD 03/20 Active Caps ER 120mg 90cap 1 by mouth 24HR s every day Brodie Rebolledo M.D. Saline 01/01 Active Solution 0.9% 30uni use 1 unit J44.1 Wendi /2018 ts in [facility] nebulizer prior to albuterol 2-3x daily Digox 12/26 Active Tablets 125mcg 45tab /2 by Qutayb s mouth every S. day Anselmo Rebolledo Vitamin D 02/06 Active Tablets 1000Unit 30tab 1 tab once Qutaybeh (Cholecalcifero s a day S. l) Anselmo Rebolledo Flutter 01/20 Active Device 1unit use as J44.9 Wendi s instructed MD [facility]na twice a day Multaq 12/22 Active Tablets 400mg 180ta take 1 tab I48.0 Qutayb bs by mouth S. q12 hours Anselmo Rebolledo Proair HFA Active Aerosol 108(90Bas 1unit 2 puffs by Unknown e) s mouth every mcg/Act 4 hours as needed Symbicort Active Aerosol 160-4.5mc 30.6g 2 puffs by Wendi / g/Act m mouth twice MD [facility] a day Albuterol Active Nebulizer (2.5mg/3M 100un 1 vial via Wendi Sulfate / L) 0.083% its nebulizer MD [facility]na every 6 hours as needed Aspirin Ec Low Active Tablets DR 81mg 1 by mouth Unknown Dose /0000 every day Oxygen Active Misc continuous 2-3L as needed Centrum Adults Active Tablets 1 tab po daily Mucinex Active Tablets ER 600mg twice a day Unknown 12HR as needed Eliquis Active Tablets 5mg 180ta 1 tab by Qutaybeh bs mouth twice S. a day Kesha, (stopped as Anselmo of 07/16/18) Spiriva Active Capsules 18mcg 90cap Inhale The Wendi Handihaler / s Contents Of MD [facility] 1 Capsule Via Handihaler Daily Prednisone 07/26 Hx TBPK 10mg (21) 21uni 4 tabs J44.1 Wendi /2017 ts day#1, 3 [facility] - tabs day#2, 08/08 2 tabs /2018 day#3, 1 tab for 7 days Doxycycline 07/26 Hx Capsules 100mg 14cap one tablet J44.1 Wendi Hyclate /2017 s twice daily MD [facility] - for 7 days. 08/08 Prednisone 01/01 Hx Tablets 10mg 60tab take 4 tabs J44.9 Joyce S. /2017 s for 5 days, Sukumar, Sherry 3 tabs for N.P. 02/22 5 days, tabs for 5 days, 1 tab for 5 days then stop Levaquin 01/01 Hx Tablets 750mg 10tab take 1 tab J44.9 Joyce S. s oral daily Sukumar, - x 10 days N.P. 01/11 Saline 01/01 Hx Solution 0.9% 30uni use 1 unit J44.1 Joyce S. /2017 ts in [place], - nebulizer N.P. 01/01 prior albuterol 2-3x daily Saline 01/01 Hx Solution 0.9% 30uni use 1 unit J44.1 Joyce S. ts in [place], - nebulizer N.P. 01/01 prior albuterol 2-3x daily Levaquin 10/17 Hx Tablets 750mg 10tab Take 1 tab J44.1 Joyce S. /2016 s oral daily [place], - x 10 days N.P. 11/29 Prednisone 10/17 Hx Tablets 10mg 90tab Take 4 tabs J44.1 Joyce S. s daily for 1 [place], - week, 3 N.P. 11/25 tabs for week, 2 tabs for 1 week, 1 tab for one week, then resume 5mg daily Saline 10/17 Hx Solution 0.9% 30uni use 1 unit J44.1 Wendi /2016 ts in [facility] - nebulizer 12/31 prior albuterol 2-3x daily Doxycycline 09/12 Hx Capsules 100mg 20cap one tablet J44.1 Wendi Hyclate s twice daily [facility] - for 10 10/05 days. Prednisone 09/12 Hx Tablets 10mg 12tab 10 mg daily J44.1 Yara /2016 s for 6 days Alissa, - and then HUSSAIN, RN, 09/18 back to [employer]- mg daily Diltiazem HCL 12/20 Hx Caps ER 240mg 90cap take 1 Qutaybeh ER Coated Beads 24HR s capsule by S. - mouth once Maghaydah, 03/20 daily M.D. Metoprolol 12/20 Hx Tablets 25mg take 1 , Tartrate tablet by Jacinto, - mouth twice M.D. 12/22 a day Levofloxacin 12/20 Hx Tablets 750mg take 1 , tablet by Jacinto, - mouth once M.D. 02/05 daily ( Longer Taking) Prednisone 12/20 Hx Tablets 10mg take 4 tabs by mouth Jacinto, - daily for 3 M.D. 02/05 days ( 40mg) then 3 tabs x3 days( 30mg) then 2 tabs x3 days ( 20mg) then 1 tab x3 d (10mg) Diltiazem CD 11/08 Hx Caps ER 180mg 90cap 1 by mouth 24HR s every day SSher Rebolledo, 12/21 M.D. Levaquin 11/07 Hx Tablets 500mg 7tabs 1 by mouth J44.1 every day ( MD [facility]na - Finished) 02/05 Prednisone 09/26 Hx Tablets 5mg 90tab 1 tab by J44.9 s mouth every MD [facility]na - day every 09/12 H-Ujbysj-A-Cyst 03/09 Hx Capsules 600mg 6caps 1 time daily SSher Rebolledo, 02/05 M.D. Flonase Allergy 11/25 Hx Suspension 50mcg/Act 2unit 2 J43.9 s intranasal MD [facility]na - twice a day 09/11 As Needed ( pt does not use any longer) Pulmicort 11/24 Hx Aerosol 180mcg/Ac 2 puffs Unknown t twice daily - 11/07 Acetylcysteine 11/24 Hx 600mg every day as directed - 11/07 Azithromycin 11/24 Hx Tablets 250mg 30tab Take 1 s tablet by MD Morena - mouth 10/25 daily Theophylline ER 03/13 Hx Tablets ER 200mg 1 tablet po Rodrigues, 12HR twice daily MD Mckay - 12/23 Daliresp Hx Tablets 500mcg 30tab by mouth Unknown / s every day - 11/[address] 20mg 30cap 1 by mouth Unknown /0000 s every day - 12/23 Diltiazem CD Hx Caps ER 120mg 90cap 1 by mouth 24HR s every day SSher Rebolledo, 11/08 M.D. Prednisone Hx Tablets 5mg 54tab (1 tab) by Yara /0000 s mouth every Maxwell, - other day HUSSAIN RN, 02/22 as directed [facility]- (3/5 hold while on tapering dose, then resume) Prednisone 00 Hx 20mg 1 tab by Unknown /0000 mouth every - day 04/03 Metoprolol Hx 25mg 1/2 tab by Unknown Tartrate /0000 mouth twice - a day 05/24 Prednisone Hx Tablets 5mg 1 po qd Unknown /0000 - 07/25 Prednisolone Hx Suspension 1% 3 drops for Unknown Acetate /0000 3 days then - 1 drop a Immunizations CPT Code Status Date Vaccine Lot # [id number] Given 08/03/2015 Fluvirin Im 3Yrs And Older [id number] Given 08/03/2015 Pneumonia Vaccine Vital Signs Date Vital Result Comment 10/11/2018 9:02am Height 70 inches 5'10" Weight 170.00 lb Heart Rate 76 /min BP Systolic Sitting 126 mmHg BP Diastolic Sitting 58 mmHg Respiratory Rate 14 /min O2 % BldC Oximetry 96 % On 3 L BMI (Body Mass Index) 24.4 kg/m2 08/09/2018 9:26am Height 70 inches 5'10" Weight 170.25 lb Heart Rate 70 /min BP Systolic Sitting 120 mmHg Lue reg cuff BP Diastolic Sitting 70 mmHg Lue reg cuff Respiratory Rate 14 /min O2 % BldC Oximetry 92 % On pulse, 3, via nasal cannula BMI (Body Mass Index) 24.4 kg/m2 07/26/2018 11:44am Height 70 inches 5'10" Weight 176.00 lb Heart Rate 68 /min BP Systolic Sitting 118 mmHg Lue regular cuff BP Diastolic Sitting 60 mmHg Lue regular cuff Respiratory Rate 16 /min O2 % BldC Oximetry 93 % BMI (Body Mass Index) 25.3 kg/m2 05/25/2018 8:57am Height 70 inches 5'10" Weight 175.25 lb Heart Rate 64 /min BP Systolic Sitting 116 mmHg Lue regular cuff BP Diastolic Sitting 68 mmHg Lue regular cuff Respiratory Rate 16 /min O2 % BldC Oximetry 91 % 2 LPM BMI (Body Mass Index) 25.1 kg/m2 04/03/2018 9:43am Height 70 inches 5'10" Weight 178.38 lb w/shoes Heart Rate 86 /min BP Systolic Sitting 118 mmHg LA reg cuff BP Diastolic Sitting 68 mmHg LA reg cuff BMI (Body Mass Index) 25.6 kg/m2 02/23/2018 11:16am Height 70 inches 5'10" Weight 186.00 lb Heart Rate 64 /min BP Systolic Sitting 106 mmHg BP Diastolic Sitting 68 mmHg Respiratory Rate 14 /min O2 % BldC Oximetry 91 % on 2 L BMI (Body Mass Index) 26.7 kg/m2 01/30/2018 9:54am Height 70 inches 5'10" Weight 178.00 lb w/ shoes Heart Rate 78 /min irregular BP Systolic Sitting 110 mmHg BP Diastolic Sitting 64 mmHg Respiratory Rate 22 /min 2 L/min sitting O2 % BldC Oximetry 93 % on oxygen BMI (Body Mass Index) 25.5 kg/m2 Ejection Fraction 50-55% echo 01/03/18 01/12/2018 8:55am Height 70 inches 5'10" Weight 182.00 lb Heart Rate 84 /min BP Systolic Sitting 124 mmHg BP Diastolic Sitting 72 mmHg Respiratory Rate 14 /min O2 % BldC Oximetry 92 % on 2 L BMI (Body Mass Index) 26.1 kg/m2 01/03/2018 11:17am Height 70 inches 5'10" Heart Rate 116 /min BP Systolic Sitting 104 mmHg LA reg cuff BP Diastolic Sitting 78 mmHg LA reg cuff O2 % BldC Oximetry 90 % 2 L 01/01/2018 12:38pm Height 70 inches 5'10" Weight 183.00 lb Heart Rate 76 /min BP Systolic Sitting 112 mmHg BP Diastolic Sitting 70 mmHg Respiratory Rate 14 /min O2 % BldC Oximetry 91 % 3 L BMI (Body Mass Index) 26.3 kg/m2 12/26/2017 9:03am Height 70 inches 5'10" Weight 183.00 lb w/ shoes Heart Rate 112 /min irreg BP Systolic Sitting 100 mmHg Lue BP Diastolic Sitting 64 mmHg Lue Respiratory Rate 16 /min BMI (Body Mass Index) 26.3 kg/m2 Ejection Fraction 55-60% as of 12/27/16 echo 10/17/2017 1:24pm Height 70 inches 5'10" Weight 181.00 lb Heart Rate 76 /min BP Systolic Sitting 128 mmHg BP Diastolic Sitting 68 mmHg Respiratory Rate 14 /min O2 % BldC Oximetry 91 % on 3L BMI (Body Mass Index) 26.0 kg/m2 10/06/2017 9:11am Height 70 inches 5'10" Weight 182.00 lb Heart Rate 76 /min BP Systolic Sitting 108 mmHg BP Diastolic Sitting 64 mmHg Respiratory Rate 14 /min O2 % BldC Oximetry 93 % on 2 L BMI (Body Mass Index) 26.1 kg/m2 09/12/2017 3:31pm Height 70 inches 5'10" Weight 178.00 lb Heart Rate 72 /min BP Systolic Sitting 110 mmHg BP Diastolic Sitting 70 mmHg Respiratory Rate 14 /min O2 % BldC Oximetry 92 % on 2L BMI (Body Mass Index) 25.5 kg/m2 07/04/2017 10:45am Height 70 inches 5'10" Weight 177.00 lb with shoes Heart Rate 70 /min BP Systolic Sitting 100 mmHg Rue reg cuff BP Diastolic Sitting 60 mmHg Rue reg cuff BP Systolic Standing 98 mmHg Rue reg cuff BP Diastolic Standing 60 mmHg Rue reg cuff Respiratory Rate 17 /min BMI (Body Mass Index) 25.4 kg/m2 Ejection Fraction 55-60% date 12/27/16 ECHO 04/12/2017 9:23am Height 70 inches 5'10" Weight 174.00 lb Heart Rate 66 /min BP Systolic Sitting 104 mmHg BP Diastolic Sitting 68 mmHg Respiratory Rate 16 /min O2 % BldC Oximetry 91 % O2 via NC 3LPM BMI (Body Mass Index) 25.0 kg/m2 02/10/2017 9:32am Heart Rate 79 /min BP Systolic Sitting 124 mmHg BP Diastolic Sitting 68 mmHg Respiratory Rate 16 /min O2 % BldC Oximetry 95 % 3lpm via n/c 02/06/2017 9:18am Height 70 inches 5'10" Weight 176.00 lb with shoes Heart Rate 76 /min BP Systolic Sitting 114 mmHg LA reg cuff BP Diastolic Sitting 62 mmHg LA reg cuff BMI (Body Mass Index) 25.3 kg/m2 Ejection Fraction 55% - 60% echo 12/27/16 01/20/2017 9:53am Height 70 inches 5'10" Weight 176.00 lb Heart Rate 70 /min BP Systolic 100 mmHg BP Diastolic 60 mmHg Respiratory Rate 18 /min O2 % BldC Oximetry 92 % 3 liters BMI (Body Mass Index) 25.3 kg/m2 12/29/2016 9:38am Height 70 inches 5'10" Weight 176.00 lb Heart Rate 66 /min BP Systolic Sitting 112 mmHg Rue reg cuff BP Diastolic Sitting 64 mmHg Rue reg cuff BP Systolic Standing 112 mmHg BP Diastolic Standing 68 mmHg Respiratory Rate 16 /min BMI (Body Mass Index) 25.3 kg/m2 Ejection Fraction 55-60% 12/27/16 12/23/2016 9:38am Height 70 inches 5'10" Weight 185.00 lb Heart Rate 163 /min BP Systolic Sitting 116 mmHg BP Diastolic Sitting 72 mmHg O2 % BldC Oximetry 93 % 3 lpm via n/c BMI (Body Mass Index) 26.5 kg/m2 12/22/2016 9:41am Height 70 inches 5'10" Weight 185.00 lb with shoes Heart Rate 84 /min irreg BP Systolic Sitting 100 mmHg Rue reg cuff BP Diastolic Sitting 70 mmHg Rue reg cuff Respiratory Rate 17 /min BMI (Body Mass Index) 26.5 kg/m2 Ejection Fraction 55-60% date 12/29/15 ECHO 12/14/2016 10:01am Height 69 inches 5'9" Weight 170.50 lb Heart Rate 77 /min BP Systolic Sitting 124 mmHg BP Diastolic Sitting 68 mmHg Respiratory Rate 16 /min O2 % BldC Oximetry 93 % 3lpm via n/c BMI (Body Mass Index) 25.2 kg/m2 11/08/2016 10:07am Height 69 inches 5'9" Weight 173.00 lb with shoes Heart Rate 76 /min reg with ectopy BP Systolic Sitting 128 mmHg Lue reg cuff BP Diastolic Sitting 70 mmHg Lue reg cuff BP Systolic Standing 122 mmHg Lue reg cuff BP Diastolic Standing 62 mmHg Lue reg cuff Respiratory Rate 17 /min BMI (Body Mass Index) 25.5 kg/m2 Ejection Fraction 55-60% date 12/29/15 ECHO 11/07/2016 10:45am Height 69 inches 5'9" Weight 170.00 lb Heart Rate 162 /min BP Systolic Sitting 126 mmHg BP Diastolic Sitting 72 mmHg O2 % BldC Oximetry 92 % 3lpm via n/c BMI (Body Mass Index) 25.1 kg/m2 09/26/2016 9:43am Height 69 inches 5'9" Weight 170.00 lb per pt Heart Rate 73 /min BP Systolic Sitting 118 mmHg BP Diastolic Sitting 62 mmHg Respiratory Rate 16 /min O2 % BldC Oximetry 95 % BMI (Body Mass Index) 25.1 kg/m2 06/01/2016 3:57pm Height 69 inches 5'9" Weight 161.00 lb w/shoes Heart Rate 78 /min BP Systolic Sitting 100 mmHg LA reg cuff BP Diastolic Sitting 60 mmHg LA reg cuff O2 % BldC Oximetry 89 % room air BMI (Body Mass Index) 23.8 kg/m2 Ejection Fraction 55-60% Echo 12/29/15 03/25/2016 9:39am Height 69 inches 5'9" Weight 159.00 lb Heart Rate 112 /min BP Systolic 100 mmHg BP Diastolic 60 mmHg Respiratory Rate 14 /min O2 % BldC Oximetry 93 % BMI (Body Mass Index) 23.5 kg/m2 03/09/2016 3:55pm Height 69 inches 5'9" Weight 159.75 lb Heart Rate 74 /min BP Systolic Sitting 102 mmHg LA, reg BP Diastolic Sitting 68 mmHg LA, reg BMI (Body Mass Index) 23.6 kg/m2 Ejection Fraction 55%-60% 12/29/15 echo 01/12/2016 1:26pm Height 69 inches 5'9" Weight 163.75 lb Heart Rate 84 /min BP Systolic Sitting 118 mmHg LA, reg BP Diastolic Sitting 64 mmHg LA, reg BMI (Body Mass Index) 24.2 kg/m2 Ejection Fraction 55%-60% 12/29/15 echo 12/24/2015 1:38pm Height 69 inches 5'9" Weight 168.00 lb Heart Rate 84 /min Apical 84 BP Systolic Sitting 108 mmHg LA, reg BP Diastolic Sitting 66 mmHg LA, reg BMI (Body Mass Index) 24.8 kg/m2 Ejection Fraction 55%-60% 12/16/13 11/25/2015 8:57am Height 69 inches 5'9" Weight 174.50 lb Heart Rate 87 /min BP Systolic Sitting 102 mmHg BP Diastolic Sitting 54 mmHg Respiratory Rate 18 /min O2 % BldC Oximetry 95 % BMI (Body Mass Index) 25.8 kg/m2 04/03/2014 1:03pm Height 69 inches 5'9" Weight 172.00 lb with shoes Heart Rate 82 /min BP Systolic Sitting 100 mmHg La reg cuff BP Diastolic Sitting 60 mmHg La reg cuff Respiratory Rate 17 /min BMI (Body Mass Index) 25.4 kg/m2 01/29/2014 1:22pm Height 69 inches 5'9" Weight 172.75 lb without shoes Heart Rate 66 /min BP Systolic 118 mmHg Ra reg cuff BP Diastolic 60 mmHg Ra reg cuff BP Systolic Sitting 118 mmHg LA reg cuff BP Diastolic Sitting 64 mmHg LA reg cuff BP Systolic Standing 120 mmHg LA reg cuf f BP Diastolic Standing 60 mmHg LA reg cuf f Respiratory Rate 17 /min BMI (Body Mass Index) 25.5 kg/m2 Results Test Date Facility Test Result H/L Range Note Arterial Blood Gas 2018 [facility] O2 Device n/c [address] [place] [address] [phone] Fio2 2 PH Arterial 7.42 N 7.35-7.45 Pco2 Arterial 55 mmHg High 35-45 Po2 Arterial 67 mmHg Low 80-100 O2 Saturation Arterial 95.8 % N 95-98 Base Excess Arterial 9.1 High -2.0-2.0 1 Hco3 Arterial 31.9 mmol/L High 19-31 Inr/Protime 08/01/2018 [facility] Inr 0.90 N 0.77-1.[address] [place] [address] [phone] Laboratory test 08/01/2018 [facility] Partial 33.8 seconds N 26.0-36.[address] [place] [address] PTT [phone] Comp Metabolic 07/23/2018 [facility] Sodium 142 mmol/L N 135- [address] [place] [address] [phone] Potassium 4.6 mmol/L N 3.5-5.0 Chloride 98 mmol/L Low 101-111 Glucose 117 mg/dL High 70-100 Blood Urea Nitrogen 11 mg/dL N 6-24 Creatinine 0.67 mg/dL N 0.67-1.17 BUN/Creatinine Ratio 16.4 N 8-20 Calcium 9.2 mg/dL N 8.6-10.3 Total Protein 6.9 g/dL N 6.4-8.9 Albumin 4.3 g/dL N 3.2-5.2 Globulin 2.6 g/dL N 2-4 Albumin/Globulin Ratio 1.7 N 1-3 Total Bilirubin 0.40 mg/dL N 0.2-1.0 Alkaline Phosphatase 90 U/L N 34-104 Alt 14 U/L N 7-52 Ast 15 U/L N 13-39 Egfr Non- 116.6 >60 Egfr 141.1 >60 2 Co2 Carbon Dioxide 41 mmol/L High 22-32 3 Anion Gap 3 mmol/L N 2-11 Order 04/03/2018 [facility] [employer] [facility]-House EKG <pending> Order 01/30/2018 [employer] [facility] In-House EKG <pending> Comp Metabolic Panel 12/26/2017 [facility] Sodium 141 mmol/L N 133-[address] [place] [address] [phone] Potassium 4.6 mmol/L N 3.5-5.0 Chloride 100 mmol/L Low 101-111 Co2 Carbon Dioxide 38 mmol/L High 22-32 Anion Gap 3 mmol/L N 2-11 Glucose 98 mg/dL N 70-100 Blood Urea Nitrogen 16 mg/dL N 6-24 Creatinine 0.70 mg/dL N 0.67-1.17 BUN/Creatinine Ratio 22.9 High 8-20 Calcium 9.2 mg/dL N 8.6-10.3 Total Protein 6.5 g/dL N 6.4-8.9 Albumin 4.0 g/dL N 3.2-5.2 Globulin 2.5 g/dL N 2-4 Albumin/Globulin Ratio 1.6 N 1-3 Total Bilirubin 0.60 mg/dL N 0.2-1.0 Alkaline Phosphatase 91 U/L N 34-104 Alt 28 U/L N 7-52 Ast 14 U/L N 13-39 Egfr Non- 110.9 >60 Egfr 142.6 >60 4 Vitamin D 1,25 12/26/2017 [facility] Vitamin D Total 28.3 ng/mL N 20-50 And Vitamin D,[address](Oh) [place] [address] [phone] Vitamin D, 1,25 Dihydroxy 56 pg/mL 18-64 5 Vitamin B12 And 12/26/2017 [facility] Vitamin B12 447 pg/mL N 180-914 6 Folate Serum [address] [place] [address] [phone] Folic Acid (Folate) 19.93 ng/mL >3.99 Laboratory test 12/26/2017 [facility] TSH (Thyroid 2.14 mcIU/mL N 0.34-5.[address] Stim Horm) [place] [address] [phone] Laboratory test 06/22/2017 [facility] Ast (Sgot) 14 U/L N 13- 39 finding [address] [place] [address] [phone] Alt (SGPT) 12 U/L N 7-52 Basic Metabolic Panel 06/22/2017 [facility] Sodium 142 mmol/L N 133-145 [address] [place] [address] [phone] Potassium 4.7 mmol/L N 3.5-5.0 Chloride 100 mmol/L Low 101-111 Co2 Carbon Dioxide 39 mmol/L High 22-32 Anion Gap 3 mmol/L N 2-11 Glucose 133 mg/dL High 70-100 Blood Urea Nitrogen 14 mg/dL N 6-24 Creatinine 0.78 mg/dL N 0.67-1.17 BUN/Creatinine Ratio 17.9 N 8-20 Calcium 9.3 mg/dL N 8.6-10.3 Egfr Non- 98.1 N >60 Egfr 126.2 N >60 7 Comp Metabolic Panel 01/31/2017 [facility] Sodium 138 mmol/L N 133-145 [address] [place] [address] [phone] Potassium 4.1 mmol/L N 3.5-5.0 Chloride 97 mmol/L Low 101-111 Co2 Carbon Dioxide 37 mmol/L High 22-32 Anion Gap 4 mmol/L N 2-11 Glucose 91 mg/dL N 70-100 Blood Urea Nitrogen 12 mg/dL N 6-24 Creatinine 0.66 mg/dL Low 0.67-1.17 BUN/Creatinine Ratio 18.2 N 8-20 Calcium 9.0 mg/dL N 8.6-10.3 Total Protein 6.7 g/dL N 6.4-8.9 Albumin 4.2 g/dL N 3.2-5.2 Globulin 2.5 g/dL N 2-4 Albumin/Globulin Ratio 1.7 N 1-3 Total Bilirubin 0.60 mg/dL N 0.2-1.0 Alkaline Phosphatase 80 U/L N 34-104 Alt 11 U/L N 7-52 Ast 14 U/L N 13-39 Egfr Non- 119.0 N >60 Egfr 153.0 N >60 8 Laboratory test 01/31/2017 [facility] Magnesium 2.1 mg/dL N 1.9-2.[address] [place] [address] [phone] CBC Auto Diff 01/31/2017 [facility] White Blood 10.5 N 3.5- 10.[address] Count 10^3/[place] [address] [phone] Red Blood Count 5.12 10^6/uL N 4.0-5.4 Hemoglobin 14.9 g/dL N 14.0-18.0 Hematocrit 45 % N 42-52 Mean Corpuscular Volume 88 fL N 80-94 Mean Corpuscular Hemoglobin 29 pg N 27-31 Mean Corpuscular HGB Conc 33 g/dL N 31-36 Red Cell Distribution Width 15 % N 10.5-15 Platelet Count 214 10^3/uL N 150-450 Mean Platelet Volume 9 um3 N 7.4-10.4 Abs Neutrophils 8.3 10^3/uL High 1.5-7.7 Abs Lymphocytes 1.1 10^3/uL N 1.0-4.8 Abs Monocytes 1.0 10^3/uL High 0-0.8 Abs Eosinophils 0.1 10^3/uL N 0-0.6 Abs Basophils 0.1 10^3/uL N 0-0.2 Abs Nucleated RBC 0.02 10^3/uL N Granulocyte % 78.7 % N 38-83 Lymphocyte % 10.5 % Low 25-47 Monocyte % 9.1 % High 1-9 Eosinophil % 1.0 % N 0-6 Basophil % 0.7 % N 0-2 Nucleated Red Blood Cells % 0.2 N 1 Reference ranges based on room air. 2 Because ethnic data is not always readily available, this report includes an eGFR for both -Americans and non- Americans. The National Kidney Disease Education Program (NKDEP) does not endorse the use of the MDRD equation for patients that are not between the ages of 18 and 70, are , have extremes of body size, muscle mass, or nutritional status, or are non- or non-. According to the National Kidney Foundation, irrespective of diagnosis, the stage of the disease is based on the level of kidney function: Stage Description GFR(mL/min/1.73 m(2)) 1 Kidney damage with normal or decreased GFR 90 2 Kidney damage with mild decrease in GFR 60-89 3 Moderate decrease in GFR 30-59 4 Severe decrease in GFR 15-29 5 Kidney failure <15 (or dialysis) 3 Critical Result CO2:41 Called to CARL Quiros, at: 11:15:50 by:[id number] Read back by:CARL Quiros, 4 Because ethnic data is not always readily available, this report includes an eGFR for both -Americans and non- Americans. The National Kidney Disease Education Program (NKDEP) does not endorse the use of the MDRD equation for patients that are not between the ages of 18 and 70, are , have extremes of body size, muscle mass, or nutritional status, or are non- or non-. According to the National Kidney Foundation, irrespective of diagnosis, the stage of the disease is based on the level of kidney function: Stage Description GFR(mL/min/1.73 m(2)) 1 Kidney damage with normal or decreased GFR 90 2 Kidney damage with mild decrease in GFR 60-89 3 Moderate decrease in GFR 30-59 4 Severe decrease in GFR 15-29 5 Kidney failure <15 (or dialysis) 5 ADDITIONAL INFORMATION This test was developed and its performance characteristics determined by [facility] in a manner consistent with CLIA requirements. This test has not been cleared or approved by the U.S. Food and Drug Administration. Test Performed by: [facility] - [address] [address] 6 Normal Range 180 to 914 Indeterminate Range 145 to 180 Deficient Range <145 7 Because ethnic data is not always readily available, this report includes an eGFR for both -Americans and non- Americans. The National Kidney Disease Education Program (NKDEP) does not endorse the use of the MDRD equation for patients that are not between the ages of 18 and 70, are , have extremes of body size, muscle mass, or nutritional status, or are non- or non-. According to the National Kidney Foundation, irrespective of diagnosis, the stage of the disease is based on the level of kidney function: Stage Description GFR(mL/min/1.73 m(2)) 1 Kidney damage with normal or decreased GFR 90 2 Kidney damage with mild decrease in GFR 60-89 3 Moderate decrease in GFR 30-59 4 Severe decrease in GFR 15-29 5 Kidney failure <15 (or dialysis) 8 Because ethnic data is not always readily available, this report includes an eGFR for both -Americans and non- Americans. The National Kidney Disease Education Program (NKDEP) does not endorse the use of the MDRD equation for patients that are not between the ages of 18 and 70, are , have extremes of body size, muscle mass, or nutritional status, or are non- or non-. According to the National Kidney Foundation, irrespective of diagnosis, the stage of the disease is based on the level of kidney function: Stage Description GFR(mL/min/1.73 m(2)) 1 Kidney damage with normal or decreased GFR 90 2 Kidney damage with mild decrease in GFR 60-89 3 Moderate decrease in GFR 30-59 4 Severe decrease in GFR 15-29 5 Kidney failure <15 (or dialysis) Procedures Date Code Description Status 04/03/2018 43291 EKG Tracing & Interpretation Completed 03/02/2018 39033 Holter Monitor Review (24 hr) review & interp only Completed 02/27/2018 17563 ECG Monitor/Recording W/Visual Superimposition Scanning Completed 02/15/2018 56471 EKG, Interpretation Only Completed 02/02/2018 34897 Diffusing Capacity Completed 02/02/2018 33262 Plethysmography Determination Lung Volumes & Per Airway Completed Resist 02/02/2018 74685 Pulmonary Function><Bronchodil Completed 01/30/2018 39900 EKG Tracing & Interpretation Completed 01/03/2018 34896 ECHO Transthoracic, Real-Time 2D With Doppler And Color Completed Flow 01/03/2018 86868 ECHO Transthoracic, Real-Time 2D With Doppler And Color Completed Flow 01/03/2018 13231 EKG Tracing & Interpretation Completed 12/26/2017 91329 EKG Tracing & Interpretation Completed 07/04/2017 93236 EKG Tracing & Interpretation Completed 07/04/2017 42157 EKG Tracing & Interpretation Completed 02/06/2017 82162 EKG Tracing & Interpretation Completed 12/29/2016 55098 EKG Tracing & Interpretation Completed 12/27/2016 74816 ECHO Transthoracic, Real-Time 2D With Doppler And Color Completed Flow 12/22/2016 12759 EKG Tracing & Interpretation Completed 12/17/2016 49721 EKG, Interpretation Only Completed 11/08/2016 29347 EKG Tracing & Interpretation Completed 03/15/2016 35409 Mobile Cardiovascular Telemetry Over 24 HR Up To 30 Days Completed 03/09/2016 77630 EKG Tracing & Interpretation Completed 02/16/2016 95805 Cardioversion Completed 02/15/2016 59500 EKG, Interpretation Only Completed 02/14/2016 01260 EKG, Interpretation Only Completed 02/13/2016 35931 EKG, Interpretation Only Completed 02/13/2016 71140 EKG, Interpretation Only Completed 02/12/2016 87069 Laparoscopy Cholecystectomy Completed 01/07/2016 35861 Holter Monitoring 24 HR New Completed 01/04/2016 96744 Holter Monitoring 24 HR New Completed 12/29/2015 10052 ECHO Transthoracic, Real-Time 2D With Doppler And Color Completed Flow 12/24/2015 52918 EKG Tracing & Interpretation Completed 12/18/2015 21354 EKG, Interpretation Only Completed 12/03/2015 22592 Pulmonary Function><Bronchodil Completed 12/03/2015 52896 Plethysmography Determination Lung Volumes & Per Airway Completed Resist 12/03/2015 30718 Diffusing Capacity Completed 03/17/2014 29341 Treadmill Interp/Report Only Completed 03/17/2014 77185 Stress Test Supervsn W/Out I/R Completed 03/05/2014 61228 Color Flow Doppler/Interp & Reprt Completed 03/05/2014 52248 Pulse Wave/Continuous-Interp.RPT Completed 03/05/2014 21540 Echocardiography, Transesophageal, Real Time W/Image 2D Completed W/W/O M-M 01/29/2014 48570 EKG Tracing & Interpretation Completed 12/16/2013 61399 ECHO Transthorasic Realtime 2D W Doppler & Color Flow Hosp Completed 11/19/2013 74902 EKG, Interpretation Only Completed Encounters Type Date Location Provider Dx Diagnosis Office Visit 08/09/2018 Pul[facility] And Wendi Berg J44.9 Chronic obstructive 9:45a Sleep Services Of pulmonary disease, [employer] unspecified J96.10 Chronic respiratory failure, unsp w hypoxia or hypercapnia Office Visit 07/26/2018 12:00p Pulmonology And Wendi J44.1 Chronic [facility] Of [place] obstructive [employer] Manager pulmonary disease w (acute) exacerbation J96.10 Chronic respiratory failure, unsp w hypoxia or hypercapnia R09.02 Hypoxemia I27.20 Pulmonary hypertension, unspecified Office Visit 05/25/2018 9:15a Pulmonology And Wendi J44.9 Chronic [facility] [place] obstructive [employer] Manager pulmonary disease, unspecified R09.02 Hypoxemia Office Visit 04/03/2018 [place] [facility] J Calloway I48.0 Paroxysmal atrial 10:00a Cardiology Anselmo Rebolledo fibrillation I36.1 Nonrheumatic tricuspid (valve) insufficiency I27.20 Pulmonary hypertension, unspecified R94.31 Abnormal electrocardiogram [ECG] [EKG] J44.9 Chronic obstructive pulmonary disease, unspecified Z82.49 Family hx of ischem heart dis and oth dis of the circ sys Office Visit 02/23/2018 11:30a [facility]monology And Wendi J18.9 Pneumonia, [facility] [place] unspecified Animal Rides Manager organism J44.9 Chronic obstructive pulmonary disease, unspecified R09.02 Hypoxemia Office Visit 02/20/2018 [facility] [place], R50.9 Fever, 9:33a gretchen Claudio M.D. unspecified Hospitalists J18.9 Pneumonia, unspecified organism I48.91 Unspecified atrial fibrillation Z98.890 Other specified postprocedural states Office Visit 02/19/2018 [facility] [place], R50.9 Fever, 9:32a gretchen Claudio M.D. unspecified Hospitalists J18.9 Pneumonia, unspecified organism I48.91 Unspecified atrial fibrillation Z98.890 Other specified postprocedural states Office Visit 02/19/2018 1:48p [place] Deon Ernst J18.9 Pneumonia, Infectious Anselmo Ward unspecified Diseases organism J96.11 Chronic respiratory failure with hypoxia J44.9 Chronic obstructive pulmonary disease, unspecified Office Visit 02/19/2018 11:06a [facility] Anup Ernst I48.0 Paroxysmal atrial Of Susy Byrd M.D. fibrillation J18.9 Pneumonia, unspecified organism [facility]neumonia, Assoc,pc Luke, D.O. unspecified Hospitalists organism J44.9 Chronic obstructive pulmonary disease, unspecified I48.91 Unspecified atrial fibrillation Z98.890 Other specified postprocedural states Office Visit 02/17/2018 9:29a [facility] Vanessa R50.9 Fever, Assoc,pc Luke, D.O. unspecified Hospitalists J18.9 Pneumonia, unspecified organism I48.91 Unspecified atrial fibrillation Z98.890 Other specified postprocedural states Office Visit 02/16/2018 11:22a [facility] Kris Williamson I48.0 Paroxysmal atrial Of Susy Kelly M.D., fibrillation FACC, FASNC Office Visit 02/16/2018 9[facility]a [facility] Pneumonia, Assoc,pc Luke, D.O. unspecified Hospitalists organism J44.9 Chronic obstructive pulmonary disease, unspecified I48.91 Unspecified atrial fibrillation Z98.890 Other specified postprocedural states Office Visit 02/15/2018 11:19a [facility] Kris Williamson I48.91 Unspecified atrial Of Susy Kelly M.D., fibrillation FACC, [facility] I48.92 Unspecified atrial flutter Office Visit 02/15/2018 [facility] Lahenry [place], R50.9 Fever, 9:28a Assgretchen kurtz M.D. unspecified Hospitalists R07.81 Pleurodynia I48.91 Unspecified atrial fibrillation Z98.890 Other specified postprocedural states Office Visit 01/30/2018 10:00a [place] Francisco J Isabel44.9 Chronic Cardiology Anselmo Rebolledo obstructive pulmonary disease, unspecified I48.0 Paroxysmal atrial fibrillation R00.0 Tachycardia, unspecified I45.10 Unspecified right bundle-branch block Office Visit 01/12/2018 9:00a Pulmonology Ernie Isabel44.9 Chronic [facility] [place] obstructive [employer] pulmonary disease, unspecified R09.02 Hypoxemia Office Visit 01/01/2018 1:00p Pulmonology And Joyce S. J44.1 Chronic Sleep Services Of Tesfaye Patino obstructive [employer]ides Manager pulmonary disease w (acute) exacerbation R09.02 Hypoxemia Office Visit 12/26/2017 [place] J SSher R00.0 Tachycardia, 9:30a Cardiology Anselmo Rebolledo unspecified R00.2 Palpitations I48.0 Paroxysmal atrial fibrillation I36.1 Nonrheumatic tricuspid (valve) insufficiency J44.1 Chronic obstructive pulmonary disease w (acute) exacerbation I45.10 Unspecified right bundle-branch block Office Visit 10/17/2017 1:30p Pulmonology And Wendi J44.1 Chronic [facility] [place] obstructive [employer] pulmonary disease w (acute) exacerbation R09.02 Hypoxemia Office Visit 10/06/2017 9:15a [facility] And Wendi J44.9 Chronic [facility] [place] obstructive [employer] Manager pulmonary disease, unspecified R09.02 Hypoxemia Office Visit 09/12/2017 3:30p Pulmonology And Wendi J44.1 Chronic [facility] [place] obstructive [employer] Manager pulmonary disease w (acute) exacerbation R09.02 Hypoxemia Office Visit 07/04/2017 11:00a [facility] Geraldine Kline, J44.9 Chronic Of [facility] [place] obstructive pulmonary disease, unspecified I48.0 Paroxysmal atrial fibrillation I36.1 Nonrheumatic tricuspid (valve) insufficiency Office Visit 04/12/2017 9:15a Pulmonology And Wendi J44.9 Chronic [facility] [place] obstructive [employer] Manager pulmonary disease, unspecified Z99.81 Dependence on supplemental oxygen Office Visit 02/10/2017 9:30a Pulmonology And Wendi J44.9 Chronic [facility] [place] obstructive [employer] Manager pulmonary disease, unspecified Office Visit 02/06/2017 9:40a [place] [facility] Francisco J Calloway J44.9 Chronic henry Rebolledo M.D. pulmonary disease, unspecified I48.0 Paroxysmal atrial fibrillation I36.1 Nonrheumatic tricuspid (valve) insufficiency R06.00 Dyspnea, unspecified I51.7 Cardiomegaly Office Visit 01/20/2017 9:45a [facility] And Wendi J44.9 Chronic [facility] [place] obstructive [employer] Manager pulmonary disease, unspecified J18.9 Pneumonia, unspecified organism J96.10 Chronic respiratory failure, unsp w hypoxia or hypercapnia Office Visit 12/29/2016 9:45a [facility] Geraldine Kline, I48.0 Paroxysmal atrial Of [employer] [place] fibrillation J44.9 Chronic obstructive pulmonary disease, unspecified I48.3 Typical atrial flutter Office Visit 12/23/2016 9:45a Pulmonology And Wendi J18.9 Pneumonia, [facility] [place] unspecified Animal Rides Manager organism J44.9 Chronic obstructive pulmonary disease, unspecified Office Visit 12/22/2016 9:45a [facility] Geraldine Kline, I48.0 Paroxysmal atrial Of [employer] [place] fibrillation I48.3 Typical atrial flutter I36.1 Nonrheumatic tricuspid (valve) insufficiency R06.00 Dyspnea, unspecified J18.9 Pneumonia, unspecified organism Office Visit 12/14/2016 10:00a Pulmonology And Wendi J44.9 Chronic [facility] [place] obstructive [employer] Manager pulmonary disease, unspecified Office Visit 11/08/2016 10:30a [facility] Geraldine Kline, I48.0 Paroxysmal atrial Of [employer] [place] fibrillation J44.9 Chronic obstructive pulmonary disease, unspecified Office Visit 11/07/2016 10:45a Pulmonology And Wendi J44.1 Chronic [facility] [place] obstructive [employer] Manager pulmonary disease w (acute) exacerbation Office Visit 09/26/2016 9:30a Pulmonology And Wendi J44.9 Chronic [facility] [place] obstructive [employer] Manager pulmonary disease, unspecified Office Visit 06/01/2016 4:20p [place] [facility] Qubc S. I48.0 Paroxysmal atrial Maghaydah, fibrillation M.D. I49.3 Ventricular premature depolarization I36.1 Nonrheumatic tricuspid (valve) insufficiency R06.00 Dyspnea, unspecified Office Visit 03/25/2016 [facility] And Wendi J44.9 Chronic 9:30a [facility] [place] obstructive [employer] Manager pulmonary disease, unspecified Office Visit 03/09/2016 [facility] Qutaybeh S. I48.91 Unspecified atrial 4:00p Maghaydah, fibrillation M.D. J44.9 Chronic obstructive pulmonary disease, unspecified I48.0 Paroxysmal atrial fibrillation R94.31 Abnormal electrocardiogram [ECG] [EKG] Office Visit 02/18/2016 [facility] [place] I48.91 Unspecified atrial 10:23a Assjerardo,gretchen Butler D.O. fibrillation Hospitalists J44.9 Chronic obstructive pulmonary disease, unspecified Z90.49 Acquired absence of other specified parts of digestive tract Office Visit 02/18/2016 3:51p [facility] Reji S. Of [facility] [place], DO FACC Office Visit 02/17/2016 10:23a [facility] [place] I48.91 Unspecified atrial Assoc,gretchen Butler D.O. fibrillation Hospitalists J44.9 Chronic obstructive pulmonary disease, unspecified Z90.49 Acquired absence of other specified parts of digestive tract Office Visit 02/17/2016 3:42p [facility] Cherelle Palm I48.0 Paroxysmal atrial Of Susy Briones fibrillation I47.2 Ventricular tachycardia Office Visit 02/16/2016 [facility] Anup Ernst I48.92 Unspecified atrial 12:24p Of Susy Byrd M.D. flutter Office Visit [facility] I48.91 Unspecified atrial 10:22a Assoc,gretchen Butler D.O. fibrillation Hospitalists J44.9 Chronic obstructive pulmonary disease, unspecified Z90.49 Acquired absence of other specified parts of digestive tract Office Visit 02/15/2016 [facility] Van[place] I48.91 Unspecified atrial 10:22a Assocgretchen D.O. fibrillation Hospitalists J44.9 Chronic obstructive pulmonary disease, unspecified Z90.49 Acquired absence of other specified parts of digestive tract Office Visit 02/15/2016 [facility] Anup D. I48.0 Paroxysmal atrial 1:07p Of Susy Byrd M.D. fibrillation Office Visit 02/14/2016 [facility] Ede I48.91 Unspecified atrial 10:21a Assoc,gretchen Owens MD fibrillation Hospitalists K80.20 Calculus of gallbladder w/o cholecystitis w/o obstruction J44.9 Chronic obstructive pulmonary disease, unspecified Office Visit 02/14/2016 [facility] Cherelle Palm I48.0 Paroxysmal atrial 11:46a Of Susy Briones fibrillation Office Visit 02/13/2016 [facility] Daniel I48.91 Unspecified atrial 10:20a Assoc,Garry AvendañoPSher fibrillation Hospitalists K80.20 Calculus of gallbladder w/o cholecystitis w/o obstruction J44.9 Chronic obstructive pulmonary disease, unspecified Office Visit 01/12/2016 [place] Qutaybeh S. I48.91 Unspecified atrial 1:40p Romana Rebolledo M.D. fibrillation I45.19 Other right bundle-branch block R94.31 Abnormal electrocardiogram [ECG] [EKG] Office 12/24/2015 [place] Qutaybeh S. R94.31 Abnormal Visit 2:00p Romana Rebolledo M.D. electrocardiogram [ECG] [EKG] I45.19 Other right bundle-branch block I48.91 Unspecified atrial fibrillation Z01.818 Encounter for other preprocedural examination Office Visit 12/18/2015 [facility] Kris Clay I48.0 Paroxysmal atrial 4:12p Of Susy Kelly M.D., fibrillation FAC, [facility] Office Visit 11/25/2015 [facility] And Wendi J43.9 Emphysema, 9:30a [facility] [place] unspecified [employer] Manager Office Visit 04/03/2014 [facility] Glenntaemeh S. 786.09 Dyspnea & 1:20p Fidel Rebolledo M.D. Abnormalities Other 786.05 Shortness Of Breath 426.4 Right Bundle Branch Block Office Visit 03/17/2014 [place] Qukalebybeh S. 786.09 Dyspnea & 9:30a Romana Rebolledo M.D. Respiratory Abnormalities Other 794.39 Cardiovascular Study Other Abnormal 794.31 Electrocardiogram (ECG) (EKG) Abnormal Office Visit 03/05/2014 [place] Francisco J S. 786.09 Dyspnea & 8:00a Romana Rebolledo M.D. Respiratory Abnormalities Other 786.05 Shortness Of Breath Office Visit 01/29/2014 1:40p [facility] [place] J S. 305.1 Tobacco Use Anselmo Rebolledo Disorder 786.09 Dyspnea & Respiratory Abnormalities Other 794.31 Electrocardiogram (ECG) (EKG) Abnormal 426.4 Right Bundle Branch Block Office Visit 11/19/2013 [facility] Tanisha 491.21 Bronchitis 11:31a Assoc,gretchen Yuan, Obstructive Hospitalists Chronic W/Acute Exacerbation 786.05 Shortness Of Breath 780.60 Fever, Unspecified 783.21 Loss Of Weight Plan of Treatment Future Appointment(s):04/11/2019 9:15 am - Wendi Berg MD at [facility]11/26/2018 9:15 mahad - Wendi Berg MD at [facility]10/11/2018 - Wendi Berg MDJ44.9 Chronic obstructive pulmonary disease, unspecifiedFollow up:6 ualhlpS19.10 Chronic respiratory failure, unspecified whether with ahjqdhP35.20 Pulmonary hypertension, unspecified
--- NOTE | 2018-11-03 11:39 | ED ---
Shortness of Breath - HPI Summary HPI Summary: Patient is a 73 y/o M presenting to ED with complaints of SOB, congestion and cough. Provider in room at 1129, patient's is present. Sx have been present ""for a while now". He reports some chest tightness when coughing. He has been taking albuterol nebulizer at home. Patient states that his cough has not been productive of phlegm. He has had flu shot. No fever reported. He is on o2 2L at home all the time. PMHx of COPD, afib, kidney stones, gallstones. He states that he does not feel like he is in afib. [employer] in Dr. Rebolledo. On triage, pain is denied, nothing is noted to aggravate/alleviate Sx. Home medications and allergies are reviewed. Patient is on Spiriva Handihaler 18 mcg take once daily, Proair HFA 90 mcg per actuation, 2 puffs every 4 hours as needed, albuterol 2.5/3ml 3 mls in nebulizer every 6 hours as needed, saline .9% 2/3 times day, symbicort 160-4.5 mcg/act inhaler inhale 2 puffs into lungs twice daily, diltiazem 120 mg one daily, eliquis 5 mg BID, digitek 125 mcg pill daily, baby ASA 81 mg once daily , Multaq 500 mg BID. Allergies Allergy/AdvReac Type Severity Reaction Status Date / Time Penicillins Allergy Severe Swelling Verified 09/17/18 06:38 roflumilast Allergy Severe loss of Verified 09/17/18 06:38 appetite, weight loss - History of Current Complaint Chief Complaint: EDShortnessOfBreath Time Seen by Provider: 11/03/18 11:12 Hx Obtained From: Patient Onset/Duration: Still Present Timing: Constant Current Severity: None Aggrevating Factors: Nothing Alleviating Factors: Nothing Associated Signs & Symptoms: Cough (Nonproductive), Chest Pain w/Cough - Allergy/Home Medications Allergies/Adverse Reactions: Allergies Allergy/AdvReac Type Severity Reaction Status Date / Time Penicillins Allergy Severe Swelling Verified 09/17/18 06:38 roflumilast Allergy Severe loss of Verified 09/17/18 06:38 appetite, weight loss PMH/Surg Hx/FS Hx/Imm Hx Endocrine/Hematology History: Denies: Hx Diabetes, Hx Sickle Cell Disease Cardiovascular History: Reports: Hx Atrial Fibrillation, Other Cardiovascular Problems/Disorders - NEW ONSET AFIB, SURGERY CANCELLED IN NOV. ON CARDIZIEM Denies: Hx Angina, Hx Congestive Heart Failure, Hx Coronary Artery Disease, Hx Hypercholesterolemia, Hx Hypertension, Hx Myocardial Infarction, Hx Pacemaker /ICD, Hx Valvular Heart Disease Respiratory History: Reports: Hx Chronic Obstructive Pulmonary Disease (COPD) Denies: Hx Asthma Comment Only: Other Respiratory Problems/Disorders - COPD GI History: Reports: Hx Gall Bladder Disease - Gallbladder removed, Other GI Disorders - CURRENT CHOLELITHIASIS History: Reports: Hx Kidney Stones Denies: Hx Dialysis, Hx Renal Disease, Other Problems/Disorders Musculoskeletal History: Reports: Hx Arthritis, Other Musculoskeletal History - 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 2011 RIGHT CATARACT [facility]. 2011 TUMOR EXC FACE [facility]. CHOLECYSTECTOMY. URETERAL STENT Hx Anesthesia Reactions: No Infectious Disease History: No Infectious Disease History: Denies: Traveled Outside the [place] in Last 30 Days - Family History Known Family History: Positive: Cardiac Disease - Mother. , Diabetes - Mother. , Respiratory Disease - COPD - Social History Alcohol Use: None Substance Use Type: Reports: None Smoking Status (MU): Former Smoker Type: Cigarettes Amount Used/How Often: 2 PPD Length of Time of Smoking/Using Tobacco: 50+ YEARS Have You Smoked in the Last Year: No Review of Systems Positive: Other - POSITIVE - CONGESTION. Negative: Fever Positive: Chest Pain - tightness with cough Positive: Shortness Of Breath, Cough All Other Systems Reviewed And Are Negative: Yes Physical Exam - Summary Physical Exam Summary: Appearance: COPD habitus, no pain distress, well-nourished, patient has nasal cannula in place (his usual 2 L o2) Skin: Warm, color reflects adequate perfusion, dry Head: Normal Head/Face inspection, atraumatic Eyes: Conjunctiva clear ENT: Normal inspection Neck: Supple, no nodes, no JVD Respiratory: Decreased breath sounds and expiratory wheezing throughout Cardio: RRR, No murmur, pulses normal, brisk capillary refill Abdomen: Soft, nontender Bowel sounds: Present Musculoskeletal: Strength Intact/ROM intact, no calf tenderness, no edema. Psychological: Normal Neuro: Alert, muscle tone normal, no focal deficit Triage Information Reviewed: Yes Vital Signs On Initial Exam: Initial Vitals Temp Pulse Resp BP Pulse Ox 98.0 F 80 20 117/65 94 11/03/18 10:28 11/03/18 10:28 11/03/18 10:28 11/03/18 10:28 11/03/18 10:28 Vital Signs Reviewed: Yes Diagnostics - Vital Signs Vital Signs Temp Pulse Resp BP Pulse Ox 11/03/18 10:28 98.0 F 80 20 117/65 94 - Laboratory Result Diagrams: 11/03/18 11:43 11/03/18 11:43 Lab Statement: Any lab studies that have been ordered have been reviewed, and results considered in the medical decision making process. - Radiology CXR Radiology Interpretation Completed By: Radiologist Summary of Radiographic Findings: CXR IMPRESSION: CHEST X-RAY FINDINGS ARE MOST CONSISTENT WITH EXACERBATION OF VASCULAR CONGESTION WITH. MEDIAL RIGHT LOWER LOBE INFILTRATE CONSIDERED LESS LIKELY. THIS REPORT WAS REVIEWED BY ED PHYSICIAN. - EKG 1208 Cardiac Rate: NL - rate of 72 bpm EKG Rhythm: Sinus Rhythm Summary of EKG Findings: EKG showed sinus rhythm with rate of 72 BPM, nl AVCT, prolonged IVCT, incomplete RBBB, nl QTc, right axis 104, no acute changes, no significant changes compared with 02/15/18 EKG. Re-Evaluation - Re-Evaluation First Eval Re-Evaluation Time: 12:01 Comment: Patient reports FMHx of COPD and notes that he is a former smoker. Second Eval Re-Evaluation Time: 12:22 Comment: Lactic acid noted to be 2.8. Third Eval Re-Evaluation Time: 13:52 Comment: 1352 still with right upper lobe wheezes, o2 sat 97 on 2 L Fourth Eval Re-Evaluation Time: 14:46 Comment: Respiratory therapist states that patient has bipap equipment at home to be successfully treated. Fifth Eval Re-Evaluation Time: 15:20 Comment: Results of labs, tests as well as consults were discussed with patient , he is agreeable with discharge to home. Course/Dx - Course Course Of Treatment: Patient is a 73 y/o M presenting to ED with complaints of SOB, congestion and cough. Provider in room at 1129, patient's is present. Sx have been present ""for a while now". He reports some chest tightness when coughing. He has been taking albuterol nebulizer at home. Patient states that his cough has not been productive of phlegm. He has had flu shot. No fever reported. He is on o2 2L at home all the time. PMHx of COPD, afib, kidney stones , gallstones. He states that he does not feel like he is in afib. [employer] in Dr. Rebolledo. On physical exam, COPD habitus is noted. Nasal cannula in place, (his usual 2 L). Decreased breath sounds and expiratory wheezing throughout. No pain distress. EKG showed sinus rhythm with rate of 72 BPM, nl AVCT, prolonged IVCT, incomplete RBBB, nl QTc, right axis 104, no acute changes , no significant changes compared with 02/15/18 EKG. CXR IMPRESSION: CHEST X- RAY FINDINGS ARE MOST CONSISTENT WITH EXACERBATION OF VASCULAR CONGESTION WITH. MEDIAL RIGHT LOWER LOBE INFILTRATE CONSIDERED LESS LIKELY. Influenza A, B was negative. Labs showed INR 1.26, APTT 45, chloride 97, carbon dioxide 38, BUN /creatinine ratio 21.7, glucose 104, lactic acid 2.8, CRP 31.48, trop 0, CK-MB 3.1. Blood gas showed pCO2 60, pO2 75, HCO3 33.3, base excess 10.9. During ED course, patient received albuterol 2.5 mg INH ED ONCE ONE, duoneb 1 neb INH ED ONCE ONE, Zithromax tab 500 mg PO ED ONCE ONE, Deltasone 60 mg PO ED ONCE ONE. Respiratory therapist states that patient has bipap equipment at home to be successfully treated. Patient's case was discussed with Dr. Starr at 1451, he is agreeable with discharge to home. Results of labs, tests as well as consults were discussed with patient, he is agreeable with discharge to home. - Diagnoses Provider Diagnoses: COPD exacerbation, Bronchitis, CO2 retention - Physician Notifications Discussed Care of Patient With: Jacinto Starr Time Discussed With Above Provider: 14:51 Instructed by Provider To: Other - Patient's case was discussed with Dr. Starr at 1451, he is agreeable with discharge to home. Discharge - Sign-Out/Discharge Documenting (check all that apply): Patient Departure - discharge - Discharge Plan Condition: Stable Disposition: HOME Prescriptions: Azithromycin TAB* [Zithromax TAB (Z-NOVA) 250 mg #6 tabs] 250 mg PO DAILY #4 tab predniSONE TAB* [Deltasone 10 MG TAB*] 10 mg PO DAILY #30 tab Patient Education Materials: COPD (Chronic Obstructive Pulmonary Disease) (ED) , Bronchospasm (ED) Referrals: Wedni Berg MD [Medical Doctor] - 6 Days Min Dietz MD [Primary Care Provider] - 2 Days Additional Instructions: You were given azithromycin 500mg orally today and prednisone 60mg to treat bronchitis/early pneumonia. Continue your other medications, and then start the remaining azithromycin and prednisone tomorrow 11/04/18. Make an appointment with Dr. Berg for follow up. Return to the ER if you have new or worsening symptoms. - Attestation Statements Document Initiated by Scribe: Yes Documenting Scribe: SHIRA NICHOLS Provider For Whom Jesica is Documenting (Include Credential): NELIDA HOSKINS MD Scribe Attestation: SHIRA Gale , scribed for NELIDA HOSKINS MD on 11/03/18 at 1901.
[2018-11-03 11:54] LABS: ABS Basophils 0 10^3/ul (0-0.2); ABS Eosinophils 0.1 10^3/ul (0-0.6); ABS Lymphocytes 1.1 10^3/ul (1.0-4.8); ABS Monocytes 0.7 10^3/ul (0-0.8); ABS Neutrophils 4.7 10^3/ul (1.5-7.7); ABS Nucleated RBC 0 10^3/ul; Eosinophil % 1.3 %; Hematocrit 45 % (42-52); Hemoglobin 14.8 g/dl (14.0-18.0); Lymphocyte % 17.1 %; Mean Corpuscular HGB Conc 33 g/dl (31-36); Mean Corpuscular Hemoglobin 29 pg (27-31); Mean Corpuscular Volume 89 fL (80-94); Mean Platelet Volume 7.8 fL (7.4-10.4); Nucleated Red Blood Cells % 0; Platelet Count 233 10^3/ul (150-450); Red Blood Count 5.08 10^6/ul (4.00-5.40); Red Cell Distribution Width 14 % (10.5-15); White Blood Count 6.7 10^3/ul (3.5-10.8)
[2018-11-03 12:04] LABS: INR 1.26 (0.77-1.02)
[2018-11-03 12:13] LABS: Albumin/Globulin Ratio 1.1 (1-3); BUN/Creatinine Ratio 21.7 (8-20); C Reactive Protein 31.48 mg/L (<8.01); Calcium 9.4 mg/dL (8.6-10.3); EGFR Non-African American 112.4 (>60); Globulin 3.6 g/dL (2-4); Potassium 4.8 mmol/L (3.5-5.0); Total Bilirubin 0.5 mg/dL (0.2-1.0); Total Protein 7.6 g/dL (6.4-8.9)
[2018-11-03 14:24] VITALS: BP 104/66
[2018-11-03 15:38] LABS: Digoxin 0.5 ng/ml (0.8-2.0)
== END | disposition home or self-care (01) ==
LOC: ED 10:24
DX: J44.1 Chronic obstructive pulmonary disease with (acute) exacerbation (principal); J40 Bronchitis, not specified as acute or chronic; E87.2 Acidosis; I45.10 Unspecified right bundle-branch block; Z87.891 Personal history of nicotine dependence; I48.91 Unspecified atrial fibrillation; Z88.0 Allergy status to penicillin
CPT/HCPCS: 36415; 71046; 80053; 80162; 82553; 82803; 83605; 83880; 84484; 85025; 85379; 85610; 85730; 86140; 87040; 93005; 99283; A9270-GY; J7512

== ENCOUNTER 2021-02-22 10:21 | Inpatient (IN) ==
[2021-02-22] MEDS ORDERED: NS 0.9% 1000 ml BAG 1,000 ML IV.FLUID IV ONE (10:45)
[2021-02-22] MEDS ORDERED: cefTRIAXone 1 gm/50 mL NS BAG 1 GM/50 ML BAG IV ONE (11:03)
[2021-02-22] MEDS ORDERED: Azithromycin 500 mg/250 ml NS 500 MG/250 ML BAG IVPB ONE (11:03)
[2021-02-22 12:15] LABS: Hematocrit 43 % (42-52); Hemoglobin 13.6 g/dL (14.0-18.0); Mean Corpuscular HGB Conc 32 g/dL (31-36); Mean Corpuscular Hemoglobin 29 pg (27-31); Mean Corpuscular Volume 91 fL (80-94); Mean Platelet Volume 8.7 fL (7.4-10.4); Platelet Count 192 10^3/uL (150-450); Red Blood Count 4.74 10^6 /uL (4.18-5.48); Red Cell Distribution Width 14 % (10-15); White Blood Count 21.7 10^3/uL (3.5-10.8)
[2021-02-22 12:26] LABS: ABS Basophils 0.2 10^3/ul (0-0.2); ABS Lymphocytes 0.6 10^3/ul (1.0-4.8); ABS Monocytes 1.6 10^3/ul (0-0.8); ABS Neutrophils 19.3 10^3/ul (1.5-7.7); Lymphocyte % 2.8 %
[2021-02-22 12:28] LABS: ALT 14 U/L (7-52); AST 16 U/L (13-39); Activated Partial Thrombo Time 40.2 seconds (26.0-38.0); Albumin 3.8 g/dL (3.2-5.2); Albumin/Globulin Ratio 1.1 (1-3); Alkaline Phosphatase 83 U/L (34-104); Anion Gap 2 mmol/L (2-11); Blood Urea Nitrogen 19 mg/dL (6-24); C Reactive Protein 226.84 mg/L (<8.01); CO2 Carbon Dioxide 38 mmol/L (22-32); Calcium 8.9 mg/dL (8.6-10.3); Chloride 94 mmol/L (101-111); EGFR African American 119.2 (>60); EGFR Non-African American 98.5 (>60); Globulin 3.5 g/dL (2-4); Glucose 106 mg/dL (70-100); INR 2.29 (0.82-1.09); Potassium 4.1 mmol/L (3.5-5.0); Sodium 134 mmol/L (135-145); Total Protein 7.3 g/dL (6.4-8.9)
[2021-02-22 12:42] LABS: Troponin I 0.04 ng/mL (<0.03)
[2021-02-22] MEDS ORDERED: Al Hydrox/Mg Hydrox/Simet LIQ 30 ML UDC PO PRN (14:32)
[2021-02-22] MEDS ORDERED: NS 0.9% 1000 ml BAG 1,000 ML IV SCH (14:45)
[2021-02-22] MEDS: methylPREDNISolone SOD 40 mg/ml 1 ml VIAL IV SCH (16:00)
[2021-02-22] MEDS: DOXYcycline 100 MG in NS 0.9% 250 ml 250 ML IVPB SCH (16:01)
[2021-02-22 17:53] LABS: Urine Appearance Cloudy; Urine Bacteria Absent (Absent); Urine Bilirubin 1+ (Negative); Urine Blood Negative (Negative); Urine Color Amber; Urine Glucose Negative (Negative); Urine Ketones Negative (Negative); Urine Nitrite Negative (Negative); Urine Protein 1+(30 mg/dL) (Negative); Urine Red Blood Cell Absent (Absent); Urine Specific Gravity 1.026 (1.002-1.030); Urine Urobilinogen Negative (Negative); Urine White Blood Cell Trace(0-5/hpf) (Absent)
[2021-02-22] MEDS: Albuterol HFA INHALER 8 gm MDI INH PRN (19:55)
[2021-02-22] MEDS: Mometasone/Formoter 200/5 MDI INH SCH (19:55)
[2021-02-23] MEDS: methylPREDNISolone SOD 40 mg/ml 1 ml VIAL IV SCH ×3 (00:01→15:03)
[2021-02-23] MEDS: DOXYcycline 100 MG in NS 0.9% 250 ml 250 ML IVPB SCH ×2 (06:16→17:23)
[2021-02-23 06:30] LABS: Hematocrit 40 % (42-52); Hemoglobin 12.7 g/dL (14.0-18.0); Mean Corpuscular HGB Conc 32 g/dL (31-36); Mean Corpuscular Hemoglobin 29 pg (27-31); Mean Corpuscular Volume 91 fL (80-94); Mean Platelet Volume 8.9 fL (7.4-10.4); Platelet Count 164 10^3/uL (150-450); Red Blood Count 4.33 10^6 /uL (4.18-5.48); Red Cell Distribution Width 14 % (10-15); White Blood Count 22.6 10^3/uL (3.5-10.8)
[2021-02-23 06:46] LABS: Calcium 8.2 mg/dL (8.6-10.3); EGFR African American 124.8 (>60); EGFR Non-African American 103.1 (>60)
[2021-02-23 07:12] LABS: ABS Basophils 0.1 10^3/ul (0-0.2); ABS Lymphocytes 0.4 10^3/ul (1.0-4.8); ABS Monocytes 0.4 10^3/ul (0-0.8); ABS Neutrophils 21.7 10^3/ul (1.5-7.7); Eosinophil % 0.1 %; Lymphocyte % 1.9 %
[2021-02-23] MEDS: SPIRIVA Respimat (tiotropium) 2.5 mcg/inh Inhaler INH SCH (07:26)
[2021-02-23] MEDS: Mometasone/Formoter 200/5 MDI INH SCH ×2 (07:27→19:10)
[2021-02-23] MEDS: Aspirin EC 81 mg TAB.EC (enteric coated) PO SCH (08:54)
[2021-02-23 08:58] LABS: Troponin I 0.02 ng/mL (<0.03)
[2021-02-23] MEDS ORDERED: cefTRIAXone 1 gm/50 mL NS BAG 1 GM/50 ML BAG IVPB SCH (09:00)
[2021-02-23] MEDS: Multivitamins/Minerals TAB PO SCH (09:09)
[2021-02-23] MEDS ORDERED: Ondansetron ODT 4 mg TAB 4 MG TAB SL PRN (10:39)
[2021-02-23] MEDS ORDERED: cefTRIAXone 1 gm/50 mL NS BAG 1 GM/50 ML BAG IVPB ONE (16:15)
[2021-02-23] MEDS: Pantoprazole VIAL 40 MG VIAL IV SCH (16:47)
[2021-02-23 16:54] LABS: Digoxin 0.4 ng/ml (0.8-2.0)
[2021-02-23] MEDS: Albuterol/Ipratropium NEB.SOL (2.5/0.5 MG) 3 ML NEB.SOLN INH SCH (19:10)
[2021-02-24] MEDS: Albuterol/Ipratropium NEB.SOL (2.5/0.5 MG) 3 ML NEB.SOLN INH SCH ×4 (01:02→20:05)
[2021-02-24 05:06] LABS: ABS Lymphocytes 0.5 10^3/ul (1.0-4.8); ABS Monocytes 0.7 10^3/ul (0-0.8); ABS Neutrophils 18.5 10^3/ul (1.5-7.7); Hematocrit 37 % (42-52); Hemoglobin 11.9 g/dL (14.0-18.0); Lymphocyte % 2.7 %; Mean Corpuscular HGB Conc 32 g/dL (31-36); Mean Corpuscular Hemoglobin 29 pg (27-31); Mean Corpuscular Volume 91 fL (80-94); Mean Platelet Volume 8.7 fL (7.4-10.4); Platelet Count 198 10^3/uL (150-450); Red Blood Count 4.08 10^6 /uL (4.18-5.48); Red Cell Distribution Width 14 % (10-15); White Blood Count 19.9 10^3/uL (3.5-10.8)
[2021-02-24 05:28] LABS: Calcium 8.6 mg/dL (8.6-10.3); EGFR African American 139.9 (>60); EGFR Non-African American 115.6 (>60); Potassium 4.9 mmol/L (3.5-5.0)
[2021-02-24] MEDS: DOXYcycline 100 MG in NS 0.9% 250 ml 250 ML IVPB SCH ×2 (05:54→17:37)
[2021-02-24] MEDS: Albuterol HFA INHALER 8 gm MDI INH PRN ×2 (06:08→12:19)
[2021-02-24] MEDS: Mometasone/Formoter 200/5 MDI INH SCH ×2 (06:59→20:14)
[2021-02-24] MEDS: SPIRIVA Respimat (tiotropium) 2.5 mcg/inh Inhaler INH SCH (07:00)
[2021-02-24] MEDS: cefTRIAXone 2 GM ADDV.VIAL 2 GM in NS 0.9% 100 ml BAG 100 ML IV SCH (08:47)
[2021-02-24] MEDS: Aspirin EC 81 mg TAB.EC (enteric coated) PO SCH (08:48)
[2021-02-24] MEDS: Pantoprazole VIAL 40 MG VIAL IV SCH (08:48)
[2021-02-24] MEDS: Multivitamins/Minerals TAB PO SCH (08:51)
[2021-02-24] MEDS ORDERED: Furosemide 40 mg/4 ml IV VIAL IV SLOW PU ONE (09:33)
[2021-02-24] MEDS ORDERED: Furosemide 20 mg/2 ml IV VIAL IV SLOW PU ONE (09:41)
[2021-02-25] MEDS: Albuterol/Ipratropium NEB.SOL (2.5/0.5 MG) 3 ML NEB.SOLN INH SCH ×5 (01:44→23:59)
[2021-02-25] MEDS: Albuterol HFA INHALER 8 gm MDI INH PRN (03:18)
[2021-02-25] MEDS: DOXYcycline 100 MG in NS 0.9% 250 ml 250 ML IVPB SCH ×2 (06:06→17:00)
[2021-02-25 06:15] LABS: ABS Lymphocytes 0.6 10^3/ul (1.0-4.8); ABS Monocytes 0.8 10^3/ul (0-0.8); ABS Neutrophils 10.5 10^3/ul (1.5-7.7); Hematocrit 35 % (42-52); Hemoglobin 10.9 g/dL (14.0-18.0); Lymphocyte % 5.4 %; Mean Corpuscular HGB Conc 32 g/dL (31-36); Mean Corpuscular Hemoglobin 29 pg (27-31); Mean Corpuscular Volume 92 fL (80-94); Mean Platelet Volume 8.2 fL (7.4-10.4); Platelet Count 175 10^3/uL (150-450); Red Blood Count 3.77 10^6 /uL (4.18-5.48); Red Cell Distribution Width 14 % (10-15); White Blood Count 11.9 10^3/uL (3.5-10.8)
[2021-02-25 06:30] LABS: C Reactive Protein 103.38 mg/L (<8.01); Calcium 8.5 mg/dL (8.6-10.3); EGFR African American 172.1 (>60); EGFR Non-African American 142.2 (>60); Potassium 4.7 mmol/L (3.5-5.0)
[2021-02-25] MEDS: Mometasone/Formoter 200/5 MDI INH SCH ×2 (08:16→21:00)
[2021-02-25] MEDS: SPIRIVA Respimat (tiotropium) 2.5 mcg/inh Inhaler INH SCH (08:17)
[2021-02-25] MEDS: Pantoprazole VIAL 40 MG VIAL IV SCH (10:38)
[2021-02-25] MEDS: Multivitamins/Minerals TAB PO SCH (10:38)
[2021-02-25] MEDS: cefTRIAXone 2 GM ADDV.VIAL 2 GM in NS 0.9% 100 ml BAG 100 ML IV SCH (10:38)
[2021-02-25] MEDS: Aspirin EC 81 mg TAB.EC (enteric coated) PO SCH (10:38)
[2021-02-26] MEDS: DOXYcycline 100 MG in NS 0.9% 250 ml 250 ML IVPB SCH (06:08)
[2021-02-26] MEDS: Albuterol/Ipratropium NEB.SOL (2.5/0.5 MG) 3 ML NEB.SOLN INH SCH ×3 (06:57→19:58)
[2021-02-26] MEDS: Mometasone/Formoter 200/5 MDI INH SCH ×3 (06:57→19:55)
[2021-02-26] MEDS: SPIRIVA Respimat (tiotropium) 2.5 mcg/inh Inhaler INH SCH ×2 (06:58→07:21)
[2021-02-26] MEDS: Multivitamins/Minerals TAB PO SCH (07:30)
[2021-02-26] MEDS: Pantoprazole VIAL 40 MG VIAL IV SCH (07:30)
[2021-02-26] MEDS: Aspirin EC 81 mg TAB.EC (enteric coated) PO SCH (07:30)
[2021-02-26] MEDS ORDERED: Perflutren Lipid Microsphere 3 ML VIAL ONE (08:09)
[2021-02-26] MEDS: cefTRIAXone 2 GM ADDV.VIAL 2 GM in NS 0.9% 100 ml BAG 100 ML IV SCH (09:40)
[2021-02-26 19:13] LABS: Magnesium 1.9 mg/dL (1.9-2.7)
[2021-02-27] MEDS: Albuterol/Ipratropium NEB.SOL (2.5/0.5 MG) 3 ML NEB.SOLN INH SCH ×3 (01:47→12:40)
[2021-02-27] MEDS: Mometasone/Formoter 200/5 MDI INH SCH (07:40)
[2021-02-27] MEDS: SPIRIVA Respimat (tiotropium) 2.5 mcg/inh Inhaler INH SCH (07:41)
[2021-02-27] MEDS: Multivitamins/Minerals TAB PO SCH (09:15)
[2021-02-27] MEDS: Aspirin EC 81 mg TAB.EC (enteric coated) PO SCH (09:15)
[2021-02-27] MEDS: Pantoprazole VIAL 40 MG VIAL IV SCH ×2 (09:16→12:05)
[2021-02-27 10:17] VITALS: BP 112/77
== END 2021-02-27 11:55 | disposition home or self-care (01) | DRG 871 ==
LOC: ED 10:21 → MED 14:33
PROVIDERS: ADMIT Internal Medicine; ATTEND Hospitalist

== ENCOUNTER 2024-08-05 11:13 | Observation (INO) ==
[2024-08-05 12:01] LABS: ABS Eosinophils 0.1 10^3/uL (0.0-0.5); ABS Lymphocytes 0.8 10^3/uL (1.0-4.8); ABS Monocytes 0.7 10^3/uL (0.0-1.1); ABS Neutrophils 6.1 10^3/uL (1.5-7.6); Eosinophil % 0.9 %; Hematocrit 44.5 % (38-53); Hemoglobin 14.2 g/dL (13.2-16.3); Lymphocyte % 10.3 %; Mean Corpuscular Hgb Conc 31.9 g/dL (31-36); Mean Corpuscular Volume 93.9 fL (80-97); Mean Platelet Volume 8.6 fL (7.5-11.2); Platelet Count 189 10^3/uL (150-450); Red Blood Count 4.74 10^6/uL (4.06-5.63); Red Cell Distribution Width 14.2 % (12-17); White Blood Count 7.7 10^3/uL (3.6-10.2)
[2024-08-05] MEDS: Albuterol/Ipratropium NEB.SOL (2.5/0.5 MG) 3 ML NEB.SOLN INH ONE (12:15)
[2024-08-05 12:17] LABS: INR 1.45 (0.85-1.14)
[2024-08-05 13:06] LABS: Albumin 4.4 g/dL (3.2-5.2); Albumin/Globulin Ratio 1.6 (1-3); Calcium 9.1 mg/dL (8.6-10.3); Creatinine, Serum 0.71 mg/dL (0.67-1.17); Globulin 2.7 g/dL (2-4); Potassium 4.5 mmol/L (3.5-5.0); Total Bilirubin 0.6 mg/dL (0.2-1.0); Total Protein 7.1 g/dL (6.4-8.9); eGFR CKD-EPI 93.9 (>60)
[2024-08-05] MEDS: Lactated Ringers 1000 ml BAG 1,000 ML IV ONE (13:06)
[2024-08-05] MEDS: Dexamethasone IV 4 MG/ML VIAL 1 ml VIAL IV SLOW PU ONE (13:06)
[2024-08-05 13:48] LABS: High Sensitivity Troponin 1 Hr 8 pg/mL (<20)
[2024-08-05] MEDS: methylPREDNISolone SOD SUCC 40 mg/ml 1 ml VIAL IV SCH (15:15)
[2024-08-05] MEDS: Albuterol/Ipratropium NEB.SOL (2.5/0.5 MG) 3 ML NEB.SOLN INH SCH (15:21)
[2024-08-05 18:21] LABS: Vitamin D Total 25(OH) 39.3 ng/mL (20-50)
[2024-08-05] MEDS: Mometasone/Formoter 200/5 MDI INH SCH (20:41)
[2024-08-06] MEDS: SPIRIVA Respimat (tiotropium) 2.5 mcg/inh Inhaler INH SCH (07:32)
[2024-08-06] MEDS ORDERED: Budesonide/Formote 160/4.5(NF) MDI INH SCH (09:00)
[2024-08-06] MEDS: Albuterol/Ipratropium NEB.SOL (2.5/0.5 MG) 3 ML NEB.SOLN INH SCH (19:45)
[2024-08-07 06:47] LABS: Calcium 8.7 mg/dL (8.6-10.3); Creatinine, Serum 0.59 mg/dL (0.67-1.17); Magnesium 1.9 mg/dL (1.9-2.7); Potassium 4.6 mmol/L (3.5-5.0); eGFR CKD-EPI 99.3 (>60)
[2024-08-07] MEDS: Magnesium Sulfate 2 gm BAG 2 GM/50 ML BAG IVPB ONE (08:41)
[2024-08-07 11:48] LABS: Calcium 9.1 mg/dL (8.6-10.3); Creatinine, Serum 0.58 mg/dL (0.67-1.17); Potassium 4.6 mmol/L (3.5-5.0); eGFR CKD-EPI 99.8 (>60)
[2024-08-07] MEDS: Albuterol/Ipratropium NEB.SOL (2.5/0.5 MG) 3 ML NEB.SOLN INH PRN (14:59)
[2024-08-07 15:10] VITALS: BP 125/67
== END 2024-08-07 16:00 | disposition home or self-care (01) ==
LOC: EDHOLD 11:13 → ED 11:13 → SUATTDRO 14:58 → EDHOLD 08-06 01:04 → MEDTELE 08-06 01:25
PROVIDERS: ADMIT Hospitalist; ATTEND Internal Medicine